=== PATIENT | male | born 1945 | race Caucasian/White ===

== ENCOUNTER 2017-11-05 14:52 | Inpatient (IN) | payer MEDICARE, SELFPAY ==
[2017-11-05 14:53] VITALS: BP 149/72; PULSE 77; RESP 20; TEMP 37.1; O2SAT 99; BMI 33.0
--- NOTE | 2017-11-05 15:13 | ED.RN ---
PT given urine cup for sample. PT tried but unable to provide sample.
[2017-11-05 15:52] VITALS: BP 140/74; PULSE 80; RESP 14; O2SAT 99
--- NOTE | 2017-11-05 15:58 | CT_ITS ---
STUDY: CT ABDOMEN AND PELVIS WITHOUT CONTRAST REASON FOR EXAM: Male, 72 years old. Right flank pain, HISTORY OF KIDNEY STONES RADIATION DOSAGE (If Supplied By Facility): CTDIvol = ( 19.66 ) mGy, DLP = ( 933.21 ) mGycm TECHNIQUE: Transaxial images were obtained from the dome of the diaphragm to the symphysis pubis without oral contrast, and without intravenous contrast. Sagittal and coronal images were reconstructed. COMPARISON: None. FINDINGS: The visualized lung bases are unremarkable. The visualized portions of the heart are within normal limits. There is hepatomegaly with diffuse hepatic enlargement. There is a solitary gallstone. Normal spleen. Normal pancreas. There is a small, circumscribed, smooth, low attenuation left adrenal mass, consistent with an adrenal adenoma. Normal right adrenal gland. Left adrenal mass measures 28 mm. Moderate hydronephrosis caused by 13 mm proximal right ureteral stone. Multiple hypodensities of the left kidney. The largest measures 23 mm. Normal visualized stomach. Normal small intestine. There are multiple colonic diverticula consistent with diverticulosis. The appendix is visualized and appears normal. There are calcifications of the abdominal aorta and vascular structures. This is consistent for atherosclerotic disease. There is no abdominal aortic aneurysm. Normal inferior vena cava. Subcentimeter mesenteric lymph nodes. Normal urinary bladder. Normal visualized prostate gland. Degenerative findings of the hips. Normal abdominal wall. There are degenerative changes of the osseous structures. There are multiple sclerotic densities in the osseous structures. These may represent multiple bone islands. However, other etiologies such as metastatic disease cannot be excluded. CT/Abdomen/Pelvis without Cont IMPRESSION: Left adrenal adenoma. Cholelithiasis. Moderate hydronephrosis caused by 13 mm proximal right ureteral stone. There are multiple diverticuli of the colon. There is diverticulosis but no radiographic signs for diverticulitis. Left renal simple cyst. hepatomegaly Other findings as above. Electronically Signed: Abhishek Jean-Baptiste MD at 17:27 EST , Service support ,
--- NOTE | 2017-11-05 16:00 | ED.VISSUMM ---
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 Patient states he has not had a kidney stone in almost 20 years. He states 2 days ago, he began to have a sharp stabbing pain in his right flank. He states it went away and he thought that he may have passed it. Today, the pain came back. He denies nausea or vomiting. He has not noticed hematuria. He denies any fevers or chills. He states that this feels very similar to stones he has had in the past. Patient does have history of diabetes, hypertension, hyperlipidemia. He has had no prior abdominal surgery. Physical Examination: Vital signs reviewed General: Well-nourished, well-developed Head: Normocephalic, atraumatic Eyes: Pupils equal and reactive, extraocular muscles intact Neck, supple, no lymphadenopathy Heart: Regular rate and rhythm Respiratory: No distress, clear bilaterally Abdomen: Soft, nontender, nondistended, no peritoneal signs Back: Right sided CVA tenderness Extremities: Nontender, no edema, no cords Skin: Normal color no rash Neuro: Alert and oriented, no focal or lateralizing deficits Test Results: Screening labs show mild leukocytosis. Patient also has acute kidney injury. CT shows a 13 mm proximal obstructing stone. Emergency Department Course and Treatment: The patient has signs and symptoms of renal colic. With his history of stones, IV was established. He did require a few doses of analgesics to achieve comfort. Screening labs show mild leukocytosis. The patient also has evidence of acute on chronic kidney injury with a creatinine 3.3. CT shows a large right sided proximal obstructing stone of 13 mm with hydronephrosis. Based on his acute kidney injury large stone, the patient was discussed with Dr. Christensen. He will be admitted for pain control and likely stent placement tomorrow. The patient is comfortable with this plan of care. Treatment Plan: [] Disposition: Admission Impression: 1. Right-sided obstructing kidney stone with hydronephrosis 2. Acute kidney injury This note was generated with [employer] software. It may contain incorrect words, spelling, and punctuation that were not noted in review of the chart prior to signing ED Disposition - Plan for ED Patient: Chief Complaint: Flank Pain Referrals: Allen Jones MD [Primary Care Provider] -
[2017-11-05 16:06] LABS: Bacteria 0 SEEN /hpf (None Seen); Mucous, Urine 0 SEEN /hpf (<or=2+); Squamous Epithelial Cells - UA 0 SEEN /hpf (0-5)
[2017-11-05 16:08] LABS: Color, Urine Yellow (Yellow); Glucose, Dipstick 1000 mg/dl (Normal); Ketone-Dipstick Negative (Negative); Leukocyte Esterase-Dipstick Negative /ul (Negative); Nitrite-Dipstick Negative (Negative); Occult Blood-Urine 250 /ul (Negative); Protein-Dipstick 30 mg/dl (Negative); Urine Bilirubin Dipstick Negative (Negative); Urine Clarity Clear (Clear); Urine Urobilinogen Normal (Normal)
[2017-11-05 16:21] LABS: Fine Granular Cast- Urine 0-5 SEEN /lpf (0-5)
[2017-11-05 16:22] LABS: Red Blood Cells-Urine 0-5 SEEN /hpf (0-5)
[2017-11-05 16:23] LABS: White Blood Cells 0-5 SEEN /hpf (0-5)
[2017-11-05] MEDS: 0.9% Normal Saline 1,000 ML 250 ML IV (16:46)
[2017-11-05] MEDS: Ondansetron 4 MG/2 ML Vial IV (16:46)
[2017-11-05 17:06] LABS: Absolute Lymphocyte Count 2.76 X10^3/ul (0.83-4.51); Absolute Neutrophil Count 12.5 X10^3/uL (2.0-7.7); Basophil# 0.03 X10^3/uL; Basophil% 0.2 % (0-1); Differential Indicated SCAN CRITERIA MET; Eosinophil# 0.18 X10^3/uL; Eosinophils% 1.1 % (0-5); Hematocrit 44.7 % (40-54); Lymphocyte # 2.76 X10^3/ul (4.0); Lymphocyte % 16.3 % (19-41); Mean Corp Hgb Conc 33.6 g/gl (32-36); Mean Corpuscular Hgb 31.5 pg (27.0-32.0); Mean Corpuscular Volume 93.9 fL (80-94); Monocyte# 1.47 X10^3/uL; Monocyte% 8.7 % (0-10); Neutrophil # 12.45 X10^3/uL (2.7-7.7); Neutrophil % 73.2 % (47-70); POSITIVE COUNT YES; POSITIVE DIFFERENTIAL NO; POSITIVE MORPHOLOGY NO; Platelet Count 213 K/mm3 (150-450); RBC Distribution Width CV 13.3 % (11.6-14.6); RBC Distribution Width SD 45.5 fl (35.1-43.9); Red Blood Count 4.76 M/mm3 (4.6-6.2)
[2017-11-05 17:08] LABS: Anion Gap 12 (5-15); BUN 52 mg/dL (7-18); BUN/Creat Ratio 15.6 RATIO (10-20); Chloride 106 mmol/L (98-107); Creatinine, Serum 3.33 mg/dL (0.70-1.30); EST Glomerular Filtration Rate 20 mL/min (>60); Est Glom Filt Rate - Afr Amer 24 mL/min (>60); Estimated Creatinine Clearance 21.01 ml/min; Glucose 191 mg/dL (70-110); Potassium 4.5 mmol/L (3.5-5.1); Sodium Level 135 mmol/L (136-145)
[2017-11-05 17:18] VITALS: BP 149/78; PULSE 75; RESP 14; O2SAT 99
[2017-11-05 17:24] LABS: Differential Comment SCANNED
[2017-11-05 17:44] VITALS: BP 140/70; PULSE 80; RESP 14; O2SAT 98
--- NOTE | 2017-11-05 17:46 | PCM.HP.STD ---
Problem List (1) Ureteral calculus Status: Acute Comment: 13mm stone mid right ureter (2) Acute renal failure Status: Acute Qualifiers: Acute renal failure type: with other specified pathological lesion Qualified Code(s): N17.8 - Other acute kidney failure Comment: 2nd dehydration and stone. History of Present Illness Date of Admission: 11/05/17 Chief Complaint: Right kidney stone. The patient is a 72 year old male presented with large 13mm stone in mid right ureter. with acute renal failure, will admit hydrate place stent. Past Medical History Allergies No Known Allergies Allergy (Verified 11/05/17 15:50) Home Medications: Ambulatory Orders Medication Instructions Recorded Allopurinol [Zyloprim] 300 mg PO DAILY 07/17/14 Amlodipine [Norvasc] 10 mg PO DAILY 07/17/14 Aspirin [Aspirin, Baby] 81 mg PO DAILY@0800 07/17/14 Carvedilol [Coreg (Beta Suzette)] 25 mg PO BID 07/17/14 Hydrochlorothiazide 12.5 mg PO DAILY 07/17/14 Metformin HCl [Glucophage Xr] 750 mg PO DAILY 07/17/14 [place]-3 Acid Ethyl Esters [Lovaza] 2 gm PO BID 07/17/14 Saxagliptin Hydrochloride [Onglyza] 5 mg PO DAILY 07/17/14 lisinopril 40 mg tablet 40 mg PO BID #180 tab 10/28/17 Surgical History: no surgical history Psychiatric History: No pertinent psych hx Smoking Status: Former smoker Tobacco Use: Non-smoker Alcohol: None Drugs: None - *Family History Maternal History Items: No pertinent history Review of Systems Constitutional: Denies: Chills, Fever, Weight Change HEENT: Denies: Head Aches, Sinus Congestion, Sinus Drainage Cardiovascular: Denies: Chest Pain, Palpitations Respiratory: Denies: Cough, Shortness of breath at rest, Sputum production Gastrointestinal: Reports: Abdominal Pain Genitourinary: Denies: Dysuria Musculoskeletal: Denies: Joint Pain, Joint Tenderness Skin: Denies: Rash, Wounds Neurological: Denies: Numbness, Tingling, Focal weakness Psychiatric: Denies: Anxiety, Depression, Homicidal Ideations, Suicidal Ideations Hematologic/ Lymphatic: Denies: Easy Bruising, Easy Bleeding VTE Information - Inpt Only VTE Present on Admission: No VTE Mechan Device Prophylaxis: SCD's Patient Problems: Active and Suspected Problems Ureteral calculus (Acute) 13mm stone mid right ureter Acute renal failure (Acute) 2nd dehydration and stone. - Physical Exam General: Alert, Oriented x3, Cooperative HEENT: Atraumatic, PERRLA, EOMI, Normocephalic Neck: Supple, No JVD, Negative Carotid Bruits Lungs: Clear to auscultation, Normal air movement Cardiovascular: Regular rate, No murmurs Abdomen: Bowel Sounds Present, Soft, Non Tender Extremities: No edema, Capillary Refill Less than 3 Seconds Skin: No rashes, No breakdown Musculoskeletal: No Tenderness to Palpation of Joints or Extremities Neurological: Cranial nerves II-XII grossly intact Psych/Mental Status: Normal Affect, Appropriate Vital Signs Temp Pulse Resp BP Pulse Ox 98.7 F 75 14 149/78 H 99 11/05/17 14:53 11/05/17 17:18 11/05/17 17:18 11/05/17 17:18 11/05/17 17:18 Oxygen Delivery Method Room Air Weight: 104.326 kg Body Mass Index (BMI) 33.0 Laboratory Tests Past 24 Hrs 11/05/17 11/05/17 11/05/17 15:30 16:49 16:49 WBC 17.0 H RBC 4.76 Hgb 15.0 Hct 44.7 MCV 93.9 MCH 31.5 MCHC 33.6 RDW 13.3 RDW Differential 45.5 H Plt Count 213 MPV 11.0 Immature Gran % (Auto) 0.500 Neut % (Auto) 73.2 H Lymph % (Auto) 16.3 L [place] % (Auto) 8.7 Eos % (Auto) 1.1 Baso % (Auto) 0.2 Absolute Neuts (auto) 12.5 H Absolute Lymphs (auto) 2.76 Total Counted Not Reportable Differential Comment SCANNED Sodium 135 L Potassium 4.5 Chloride 106 Carbon Dioxide 17.0 L Anion Gap 12 BUN 52 H Creatinine 3.33 H Estim Creat Clear Calc 21.01 Est GFR (MDRD) Af Amer 24 L Est GFR (MDRD) Non-Af 20 L BUN/Creatinine Ratio 15.6 Glucose 191 H Calcium 9.0 Urine Color Yellow Urine Clarity Clear Urine pH 5.0 Ur Specific [place] 1.010 Urine Protein 30 H Urine Glucose (UA) 1000 H Urine Ketones Negative Urine Occult Blood 250 H Urine Nitrite Negative Urine Bilirubin Negative Urine Urobilinogen Normal Ur Leukocyte Esterase Negative Urine RBC 0-5 SEEN Urine WBC 0-5 SEEN Ur Squamous Epith Cells 0 SEEN Urine Bacteria 0 SEEN Fine Granular Casts 0-5 SEEN Urine Mucus 0 SEEN Assessment/Plan Active and Suspected Problems Ureteral calculus (Acute) 13mm stone mid right ureter Acute renal failure (Acute) 2nd dehydration and stone. admit to hospital hydrate place stent in morning.
[2017-11-05 18:27] VITALS: BMI 33.5
[2017-11-05 18:57] VITALS: BP 149/68; PULSE 73; RESP 16; TEMP 36.8; O2SAT 96
[2017-11-05 20:20] VITALS: BP 155/93; PULSE 77; RESP 18; TEMP 36.7; O2SAT 97
[2017-11-05] MEDS: Cefazolin 1 GM/50 ML BAG IV (20:20)
[2017-11-05] MEDS: Lactated Ringers 1,000 ML 125 ML IV (20:20)
[2017-11-05 20:33] VITALS: BMI 33.5
[2017-11-05] MEDS: Carvedilol 25 MG Tablet PO (21:09)
[2017-11-05] MEDS: Lisinopril 40 MG Tablet PO (21:10)
[2017-11-05] MEDS: Omega-3 Acid Ethyl Esters 1 GM Capsule 2 GM PO (21:10)
--- NOTE | 2017-11-05 21:28 | NURSING ---
Spoke with Dr. 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 Explained that the pt was going to have a Cystoscopy with Right Stent Placement with Dr. Christensen on 11/06/17 around 0800. Voiced my concerns about how I would get this CIED form faxed to him prior to pt's surgery. Dr. Maddox indicated that probably would not happen due to time frame and weekend and further more his nurses are the ones who have all the pacer information and they of course will not be in on Wednesday. He advised me that this pt faithfully keeps his appointments and has had no issues so he did not anticipate any problems with the pacer/defib. I asked him if an EKG would be advisable and he felt that would be a good idea and gave me an order for the same.
--- NOTE | 2017-11-05 21:47 | NURSING ---
Dr. Maddox stopped by on MS3 and provided me with the pt's most recent pacemaker check information. He stated that the EKG should reflect that the pt is paced, if not that might be a cause for concern. We decided to have the EKG done now rather than in the morning so I could send him a picture of it via [employer]. CPS advised to do EKG now.
[2017-11-05 22:56] LABS: Bedside Glucose 152 mg/dL (70-110)
[2017-11-06] VITALS (8 sets, daily range): BP systolic 101–137; BP diastolic 58–87; PULSE 67–78; RESP 16–18; TEMP 36.6–37.6; O2SAT 93–97; BMI 33.5
--- NOTE | 2017-11-06 05:00 | EKG12_ITS ---
Test Reason : PRE OP Blood Pressure : / mmHG Vent. Rate : 070 BPM Atrial Rate : 070 BPM P-R Int : 192 ms QRS Dur : 112 ms QT Int : 406 ms P-R-T Axes : 010 -58 031 degrees QTc Int : 438 ms Sinus rhythm with AV syncnvnous pacemaker Confirmed by WILLARD NIX, CARLOS ([id number]), video effects editor RIMA LOUIS ([id number]) on 11/18/2017 1:01:04 PM Referred By: Confirmed By:CARLOS LAMAR MD
[2017-11-06] MEDS: Cefazolin 1 GM/50 ML BAG IV (05:08)
[2017-11-06] MEDS: Carvedilol 25 MG Tablet PO (06:44)
[2017-11-06 07:04] LABS: Absolute Lymphocyte Count 2.87 X10^3/ul (0.83-4.51); Absolute Neutrophil Count 11.9 X10^3/uL (2.0-7.7); Basophil# 0.04 X10^3/uL; Basophil% 0.2 % (0-1); Differential Indicated SCAN CRITERIA MET; Eosinophils% 1.2 % (0-5); Hematocrit 45.4 % (40-54); Hemoglobin 14.8 g/dl (13.0-16.5); Lymphocyte # 2.87 X10^3/ul (4.0); Lymphocyte % 17.1 % (19-41); Mean Corp Hgb Conc 32.6 g/gl (32-36); Mean Corpuscular Hgb 30.9 pg (27.0-32.0); Mean Corpuscular Volume 94.8 fL (80-94); Mean Platelet Vol. 10.4 fl (6.2-12.0); Monocyte% 10.1 % (0-10); Neutrophil # 11.91 X10^3/uL (2.7-7.7); Neutrophil % 70.9 % (47-70); POSITIVE COUNT NO; POSITIVE DIFFERENTIAL YES; POSITIVE MORPHOLOGY NO; Platelet Count 235 K/mm3 (150-450); RBC Distribution Width CV 13.2 % (11.6-14.6); RBC Distribution Width SD 45.6 fl (35.1-43.9); Red Blood Count 4.79 M/mm3 (4.6-6.2); White Blood Count 16.8 K/mm3 (4.4-11.0)
--- NOTE | 2017-11-06 07:14 | PCM.DC.URO ---
Discharge Diet: Light diet - advance as tolerated Discharge Activity: Return to Normal Activity, May not drive while taking narcotic pain medications. Call your doctor if you observe: Fever of 101 or Higher Instructions: Ureteral Stents Allergies/Adverse Reactions: Allergies No Known Allergies Allergy (Verified 11/05/17 15:50) Medications to take at Discharge Allopurinol [Zyloprim] 300 mg PO DAILY 07/17/14 Amlodipine [Norvasc] 10 mg PO DAILY 07/17/14 Aspirin [Aspirin, Baby] 81 mg PO DAILY@0800 07/17/14 Carvedilol [Coreg (Beta [place])] 25 mg PO BID 07/17/14 Hydrochlorothiazide 12.5 mg PO DAILY 07/17/14 Metformin HCl [Glucophage Xr] 750 mg PO DAILY 07/17/14 [place]-3 Acid Ethyl Esters [Lovaza] 2 gm PO BID 07/17/14 Saxagliptin Hydrochloride [Onglyza] 5 mg PO DAILY 07/17/14 lisinopril 40 mg tablet 40 mg PO BID #180 tab 10/28/17 Ciprofloxacin [Cipro] 500 mg PO BID #10 tab 11/06/17 Hydrocodone/Acetaminophen [[place] 5-325 Tablet] 1 ea PO Q4H PRN PRN #14 tab 11/06/17 The following prescriptions were given: Hydrocodone/Acetaminophen [[place] 5-325 Tablet] 1 ea PO Q4H PRN PRN #14 tab PRN Reason: Pain Ciprofloxacin [Cipro] 500 mg PO BID #10 tab Primary Care Physician: Allen Jones MD [Primary Care Provider] - Please Follow Up With: Vince Christensen MD When: call office to get set up for surgery to laser stone.
--- NOTE | 2017-11-06 07:17 | DCINST_ITS ---
Discharge Diet: Light diet - advance as tolerated Discharge Activity: Return to Normal Activity, May not drive while taking narcotic pain medications. Call your doctor if you observe: Fever of 101 or Higher Instructions: Ureteral Stents Allergies/Adverse Reactions: Allergies No Known Allergies Allergy (Verified 11/05/17 15:50) Medications to take at Discharge Allopurinol [Zyloprim] 300 mg PO DAILY 07/17/14 Amlodipine [Norvasc] 10 mg PO DAILY 07/17/14 Aspirin [Aspirin, Baby] 81 mg PO DAILY@0800 07/17/14 Carvedilol [Coreg (Beta [place])] 25 mg PO BID 07/17/14 Hydrochlorothiazide 12.5 mg PO DAILY 07/17/14 Metformin HCl [Glucophage Xr] 750 mg PO DAILY 07/17/14 [place]-3 Acid Ethyl Esters [Lovaza] 2 gm PO BID 07/17/14 Saxagliptin Hydrochloride [Onglyza] 5 mg PO DAILY 07/17/14 lisinopril 40 mg tablet 40 mg PO BID #180 tab 10/28/17 Ciprofloxacin [Cipro] 500 mg PO BID #10 tab 11/06/17 Hydrocodone/Acetaminophen [[place] 5-325 Tablet] 1 ea PO Q4H PRN PRN #14 tab 11/06 The following prescriptions were given: Hydrocodone/Acetaminophen [[place] 5-325 Tablet] 1 ea PO Q4H PRN PRN #14 tab PRN Reason: Pain Ciprofloxacin [Cipro] 500 mg PO BID #10 tab Primary Care Physician: Allen Jones MD [Primary Care Provider] - Please Follow Up With: Vince Christensen MD When: call office to get set up for surgery to laser stone.
[2017-11-06 07:26] LABS: Bedside Glucose 208 mg/dL (70-110)
[2017-11-06] MEDS: Lidocaine Jelly 2% 20 ML Syringe (URO-JET) 20 APPLIC (07:26)
[2017-11-06 07:34] LABS: Anion Gap 14 (5-15); BUN 46 mg/dL (7-18); BUN/Creat Ratio 14.2 RATIO (10-20); Calcium,Total 9.1 mg/dL (8.5-10.1); Chloride 103 mmol/L (98-107); Creatinine, Serum 3.24 mg/dL (0.70-1.30); EST Glomerular Filtration Rate 20 mL/min (>60); Est Glom Filt Rate - Afr Amer 24 mL/min (>60); Estimated Creatinine Clearance 21.59 ml/min; Glucose 198 mg/dL (70-110); Potassium 4.2 mmol/L (3.5-5.1); Sodium Level 136 mmol/L (136-145)
--- NOTE | 2017-11-06 07:34 | PCM.DC.SUM ---
Discharge Date and Diagnosis - Problem List Patient Problems: Active and Suspected Problems Ureteral calculus (Acute) 13mm stone mid right ureter Acute renal failure (Acute) 2nd dehydration and stone. Date of Admission: 11/05/17 Date of Discharge: 11/06/17 - Primary Discharge Diagnosis Active and Suspected Problems Ureteral calculus (Acute) 13mm stone mid right ureter Acute renal failure (Acute) 2nd dehydration and stone. Hospital Course and Treatment Imaging Results: 11/06/17 07:15 O.R. Fluoro for C-Arm [RAD] Urgent Operations: - - cystoscopy and right stent placement. Procedures: None Summary of Care Provided: The patient is a 72 year old male admitted for acute renal insufficiency, elevated creatinine and obstructing stone in the right mid ureter and right hydronephrosis high-grade high-grade obstruction. He was taken today to the operating room for cystoscopy and stent placement and later today hopefully home with antibiotics in my office will give him a call to set him up for surgery to laser the stone. Discharge Diet: Light diet - advance as tolerated Discharge Activity: Return to Normal Activity, May not drive while taking narcotic pain medications. Call your doctor if you observe: Fever of 101 or Higher Home Medications: Medications to take at Discharge Allopurinol [Zyloprim] 300 mg PO DAILY 07/17/14 Amlodipine [Norvasc] 10 mg PO DAILY 07/17/14 Aspirin [Aspirin, Baby] 81 mg PO DAILY@0800 07/17/14 Carvedilol [Coreg (Beta Suzette)] 25 mg PO BID 07/17/14 Hydrochlorothiazide 12.5 mg PO DAILY 07/17/14 Metformin HCl [Glucophage Xr] 750 mg PO DAILY 07/17/14 [place]-3 Acid Ethyl Esters [Lovaza] 2 gm PO BID 07/17/14 Saxagliptin Hydrochloride [Onglyza] 5 mg PO DAILY 07/17/14 lisinopril 40 mg tablet 40 mg PO BID #180 tab 10/28/17 Ciprofloxacin [Cipro] 500 mg PO BID #10 tab 11/06/17 Hydrocodone/Acetaminophen [[place] 5-325 Tablet] 1 ea PO Q4H PRN PRN #14 tab 11/06/17 Following Prescrptions Were Given to Patient: Hydrocodone/Acetaminophen [[place] 5-325 Tablet] 1 ea PO Q4H PRN PRN #14 tab PRN Reason: Pain Ciprofloxacin [Cipro] 500 mg PO BID #10 tab Primary Care Physician: Allen Jones MD [Primary Care Provider] - Please Follow Up With: Vince Christensen MD When: call office to get set up for surgery to laser stone. Patient Instructions: Ureteral Stents Meaningful Use Info Meaningful Use Diagnoses (Choose all that apply): None applicable
[2017-11-06] MEDS: Lisinopril 40 MG Tablet PO (10:55)
[2017-11-06] MEDS: Omega-3 Acid Ethyl Esters 1 GM Capsule 2 GM PO (10:55)
[2017-11-06] MEDS: amLODIPine 10 MG Tablet PO (10:55)
[2017-11-06] MEDS: HYDROCHLOROTHIAZIDE 12.5 MG CAPSULE PO (10:55)
[2017-11-06] MEDS: LINAGLIPTIN 5 MG TABLET PO (10:55)
[2017-11-06] MEDS: Allopurinol 300 MG Tablet PO (10:55)
--- NOTE | 2017-11-06 12:13 | CASEMGMT ---
Face to Face with patient for initial transition planning/care coordination assessment. RN CM introduced self and role at [facility], pt voices understanding and consents to assessment at this time. Care providers, pharmacy, and demographics verified. See attached link. Advised pt to ask for CM if questions/concerns/needs arise, voices understanding. PLAN: Home with spouse.
--- NOTE | 2017-11-08 09:38 | PCM.OPRPT ---
Problem List (1) Ureteral calculus Status: Acute Comment: 13mm stone mid right ureter (2) Acute renal failure Status: Acute Qualifiers: Acute renal failure type: with other specified pathological lesion Qualified Code(s): N17.8 - Other acute kidney failure Comment: 2nd dehydration and stone. Report of Operation Date of Procedure: 11/06/17 Pre-Operative Diagnosis: ureteral calculi Post-Operative Diagnosis: same Surgery/Procedure Performed:: cystoscopy, right stent placement Description of Surgical Findings:: taken to OR under mac local cysto performed, normal bladdder cannulated right ureteral orfice wire advanced, contrast injected in to kidney then stent placed. take to pacu in good condition. Type of Anesthesia:: Local MAC - Admit VTE Documentation VTE Present on Admission: No VTE Mechan Device Prophylaxis: SCD's
[2017-11-08 10:52] LABS: Pathologist Review Reviewed
== END 2017-11-06 12:15 | disposition home or self-care (01) | DRG 694 ==
LOC: ED 18:01 → MS3 11-08 11:54
PROVIDERS: Anesthesiology; Admitting Provider Urology; Emergency Provider Emergency Medicine; Family Provider Family Medicine; PCP Family Medicine; Visit Provider Urology
PROC: 0T768DZ Dilation of Right Ureter with Intraluminal Device, Via Natural or Artificial Opening Endoscopic (ICD-10-PCS; principal; 2017-11-06 07:15)
DX: N13.2 Hydronephrosis with renal and ureteral calculous obstruction (principal); N17.9 Acute kidney failure, unspecified; Z87.442 Personal history of urinary calculi; E86.0 Dehydration; I10 Essential (primary) hypertension; E11.9 Type 2 diabetes mellitus without complications; Z79.84 Long term (current) use of oral hypoglycemic drugs; E78.5 Hyperlipidemia, unspecified; Z79.899 Other long term (current) drug therapy; Z87.891 Personal history of nicotine dependence
CPT/HCPCS: 36415; 74176; 76000; 80048; 81001; 82962; 83036; 85025; 93005; 99285; J7030; J7050; J7120; A4216; C1769; C2617; J2405

== ENCOUNTER → 2017-12-13 09:07 | Outpatient (CLI) | payer MEDICARE, SELFPAY ==
[2017-12-13 10:30] LABS: Anion Gap 7 (5-15); BUN 20 mg/dL (7-18); BUN/Creat Ratio 15.3 RATIO (10-20); Calcium,Total 9.2 mg/dL (8.5-10.1); Chloride 104 mmol/L (98-107); Creatinine, Serum 1.31 mg/dL (0.70-1.30); EST Glomerular Filtration Rate 57 mL/min (>60); Est Glom Filt Rate - Afr Amer 69 mL/min (>60); Glucose 183 mg/dL (74-106); Potassium 4.2 mmol/L (3.5-5.1); Sodium Level 139 mmol/L (136-145)
== END ==
PROVIDERS: Family Provider Family Medicine; PCP Family Medicine; Visit Provider Family Medicine
DX: R60.0 Localized edema (principal)
CPT/HCPCS: 36415; 80048

== ENCOUNTER → 2018-01-25 08:54 | Outpatient (CLI) | payer MEDICARE, SELFPAY ==
[2018-01-25 10:50] LABS: AST(SGOT) 20 U/L (15-37); Alanine Aminotransfer ALT/SGPT 38 U/L (16-61); Albumin, Serum 3.4 g/dL (3.2-5.0); Alkaline Phosphatase 82 U/L (45-117); Bilirubin, Direct 0.09 mg/dL (0.00-0.30); Cholesterol 156 mg/dL (200); High Density Lipoprotein 34 mg/dL; Protein, Total 7.4 g/dL (6.4-8.2); Triglycerides 253 mg/dL; Very Low Density Lipoprotein 51 mg/dL (5-40)
== END ==
PROVIDERS: Family Provider Family Medicine; PCP Family Medicine; Visit Provider Physician Assistant Medical
DX: E78.5 Hyperlipidemia, unspecified (principal); Z79.899 Other long term (current) drug therapy
CPT/HCPCS: 36415; 80061; 80076

== ENCOUNTER → 2018-01-31 10:15 | Outpatient (CLI) | payer MEDICARE, SELFPAY ==
--- NOTE | 2018-01-31 10:16 | RAD_ITS ---
STUDY: X-RAY - ABDOMEN/PELVIS REASON FOR EXAM: Male, 72 years old. History of kidney stone. TECHNIQUE: Two AP supine views of the abdomen and pelvis. COMPARISON: Comparison is made with prior CT scan of the abdomen dated November 05, 2017. FINDINGS: Normal visualized lung bases. There is an unremarkable bowel gas pattern. Calcified gallstone. Tiny calcification overlying the lower pole calyx of the right kidney. Normal soft tissue structures. There are diffuse degenerative changes of the visualized lumbar spine. Sclerotic lesions seen in the proximal right femur. RAD/Abdomen Single View IMPRESSION: Calcified gallstone. Tiny calculus seen overlying the lower pole calyx of the right kidney. Electronically Signed: Irvin Campuzano MD at 15:38 EDT Tel [phone], Service support ,
[2018-01-31 12:17] LABS: Anion Gap 8 (5-15); BUN 28 mg/dL (7-18); BUN/Creat Ratio 18.1 RATIO (10-20); Calcium,Total 8.9 mg/dL (8.5-10.1); Chloride 108 mmol/L (98-107); Creatinine, Serum 1.55 mg/dL (0.70-1.30); EST Glomerular Filtration Rate 47 mL/min (>60); Est Glom Filt Rate - Afr Amer 57 mL/min (>60); Glucose 259 mg/dL (74-106); Sodium Level 140 mmol/L (136-145)
== END ==
PROVIDERS: Family Provider Family Medicine; PCP Family Medicine; Visit Provider Urology
DX: N20.0 Calculus of kidney (principal)
CPT/HCPCS: 36415; 74018; 80048

== ENCOUNTER → 2018-02-04 14:13 | Outpatient (CLI) | payer MEDICARE, SELFPAY ==
--- NOTE | 2018-02-04 14:15 | CT_ITS ---
STUDY: CT ABDOMEN AND PELVIS WITHOUT CONTRAST REASON FOR EXAM: Male, 72 years old. History of kidney stones with lithotripsy. Prostatectomy for cancer. RADIATION DOSAGE (If Supplied By Facility): CTDIvol = ( 14.77 ) mGy, DLP = ( 680.40 ) mGycm TECHNIQUE: Transaxial images were obtained from the dome of the diaphragm to the symphysis pubis without oral contrast, and without intravenous contrast. Sagittal and coronal images were reconstructed. Individualized dose optimization techniques were used for this CT. COMPARISON: None. FINDINGS: The visualized lung bases are unremarkable. The visualized portions of the heart are within normal limits. Pacer leads are seen in the right heart along the posterior aspect of the left ventricle. Normal liver. There is a laminated gallstone in an incompletely distended gallbladder. No wall thickening or inflammatory change. There is no biliary ductal dilatation. Normal spleen. Normal pancreas. Normal right adrenal gland.The left adrenal gland is markedly enlarged uterus with 2.5 x 2.2 x 3.1 cm low-attenuation mass. The right kidney is of normal size and cortical thickness. A 4 mm nonobstructing calculus lower pole calyx. No hydronephrosis. Normal right ureter. The left kidney is of normal size and cortical thickness. There is an exophytic 2.4 cm cyst off the mid kidney. No renal calculi or hydronephrosis. Normal left ureter. Normal visualized stomach. Normal small intestine. There is descending and sigmoid diverticulosis without acute inflammatory change. Proximal colon is unremarkable. The appendix is visualized and appears normal. There is diffuse atherosclerotic calcification of the abdominal aorta, without a demonstrated aneurysm. Normal inferior vena cava. Normal retroperitoneum. Normal urinary bladder. Despite history of prostatectomy, prostate appears present. Normal seminal vesicles. There is no pelvic lymphadenopathy or mass. No free air or free fluid is seen within the peritoneal cavity. Umbilical hernia of omental fat. There appears to be subcutaneous injection sites in the periumbilical fat. There are degenerative changes of the lumbar spine with levoscoliosis. There is a focal sclerotic lesion in the posterior left acetabulum as well is tiny sclerotic lesions seen in both femoral heads. CT/Abdomen/Pelvis without Cont IMPRESSION: 1. Nonobstructing right renal calculus. 2. Left renal cysts. 3. Visualization of the prostate despite history of prostatectomy. 4. Cardiac pacemaker. 5. Large left adrenal mass. Question adenoma. 6. Minimal sclerotic foci within the pelvis and femurs. Question metastatic disease. 7. Gallstone without acute cholecystitis. Electronically Signed: Ward Burt DO at 17:13 EDT Tel [phone], Service support ,
== END ==
PROVIDERS: Family Provider Family Medicine; PCP Family Medicine; Visit Provider Urology
DX: Z87.442 Personal history of urinary calculi (principal)
CPT/HCPCS: 74176

== ENCOUNTER → 2018-02-09 08:41 | Outpatient (CLI) | payer MEDICARE, SELFPAY | PROVIDERS: Family Provider Family Medicine; PCP Family Medicine; Visit Provider Urology | DX: Z12.5 Encounter for screening for malignant neoplasm of prostate (principal) | CPT/HCPCS: 36415; 84153; G0103 ==

== ENCOUNTER → 2018-06-16 08:02 | Outpatient (CLI) | payer MEDICARE, SELFPAY ==
[2018-06-16 10:47] LABS: ALB/GLOB Ratio 0.8 RATIO (0.9-2.4); AST(SGOT) 14 U/L (15-37); Alanine Aminotransfer ALT/SGPT 31 U/L (16-61); Albumin, Serum 3.2 g/dL (3.2-5.0); Alkaline Phosphatase 66 U/L (45-117); Anion Gap 9 (5-15); BUN 26 mg/dL (7-18); BUN/Creat Ratio 16.5 RATIO (10-20); Calcium,Total 8.8 mg/dL (8.5-10.1); Chloride 109 mmol/L (98-107); Creatinine, Serum 1.58 mg/dL (0.70-1.30); EST Glomerular Filtration Rate 46 mL/min (>60); Est Glom Filt Rate - Afr Amer 56 mL/min (>60); Globulin 3.8 g/dL (2.2-4.2); Glucose 153 mg/dL (74-106); Potassium 4.9 mmol/L (3.5-5.1); Sodium Level 139 mmol/L (136-145); Thyroid Stim Hormone (TSH) 3.31 uIU/mL (0.358-3.74)
== END ==
PROVIDERS: Family Provider Family Medicine; PCP Family Medicine; Visit Provider Family Medicine
DX: E11.9 Type 2 diabetes mellitus without complications (principal)
CPT/HCPCS: 36415; 80053; 84403; 84443

== ENCOUNTER → 2018-08-29 13:23 | Outpatient (CLI) | payer MEDICARE, SELFPAY ==
--- NOTE | 2018-08-29 13:26 | CT_ITS ---
STUDY: CT ABDOMEN AND PELVIS WITHOUT CONTRAST REASON FOR EXAM: Male, 72 years old. Kidney stone follow-up history of prostate cancer RADIATION DOSAGE (If Supplied By Facility): CTDIvol = ( 17.26 ) mGy, DLP = ( 790.79 ) mGycm TECHNIQUE: Transaxial images were obtained from the dome of the diaphragm to the symphysis pubis without oral contrast, and without intravenous contrast. Sagittal and coronal images were reconstructed. Individualized dose optimization techniques were used for this CT. COMPARISON: February 04, 2018 CT scan abdomen and pelvis FINDINGS: The visualized lung bases are unremarkable. There is partial visualization of pacer defibrillator leads. The liver is fatty infiltrated. The left hepatic lobe appears mildly elongated. There is a gallstone in the gallbladder measuring 1.0 cm. Normal spleen. Normal pancreas. There is a thickened appearance of the left adrenal gland measuring up to 1.5 x 2.4 cm. This is similar to the prior study. There is a punctate stone or stones within the inferior pole of the right kidney which are new since prior study. There is no evidence of hydronephrosis. The hydronephrosis seen on the prior study has resolved. There is mild left renal atrophy. There is a cyst in the left kidney measuring 2.1 x 1.4 cm and 2.1 x 2.9 cm. There is intraparenchymal cystic structure measuring 9 mm. These are stable when compared to prior study. Normal visualized stomach. Normal small intestine. There is moderate stool in the colon. There are diverticula present without visualized diverticulitis. The appendix is visualized and appears normal. There is diffuse atherosclerotic calcification of the abdominal aorta, without a demonstrated aneurysm. Normal inferior vena cava. Normal retroperitoneum. Normal urinary bladder. The prostate measures 2.4 x 4.6 cm. There is a small umbilical hernia containing fat. There is degenerative change of the thoracolumbar spine similar to the prior study. This is especially seen at L1-L2 L2-3 L3-L4 where there is disc space narrowing spondylosis anteriorly and posteriorly with bilateral neural foramina narrowing and mild central stenosis. There is facet arthropathy. There are focal sclerotic densities within the left femoral head left initial tuberosity right-sided acetabulum and in the right side of the femur. There is a mildly inhomogeneous appearance of the bones within the pelvis. CT/Abdomen/Pelvis without Cont IMPRESSION: No evidence of obstructing renal or ureteral calculi. There is a small tiny focus of stones and there are stones measuring up to 3 mm in the right kidney. A stable cyst left kidney mild atrophy. Cholelithiasis Hepatic enlargement. Constipation and diverticulosis no evidence of diverticulitis Borderline enlarged prostate Small scattered tiny focal sclerotic densities in the pelvis as detailed above stable since prior study these may represent benign bone islands or sclerotic degenerative change however recommend follow-up bone scan for further evaluation given the clinical history given of prostate cancer. There is degenerative change of the thoracolumbar spine. Electronically Signed: Tita Carrasco MD at 19:57 EST Tel , Service support ,
== END ==
PROVIDERS: Family Provider Family Medicine; PCP Family Medicine; Referring Provider Urology; Visit Provider Urology
DX: N20.0 Calculus of kidney (principal)
CPT/HCPCS: 74176

== ENCOUNTER → 2018-09-20 09:22 | Outpatient (CLI) | payer MEDICARE, SELFPAY ==
[2018-09-05 13:59] VITALS: BMI 34.0
[2018-09-20 11:08] LABS: Anion Gap 9 (5-15); BUN 40 mg/dL (7-18); BUN/Creat Ratio 25.5 RATIO (10-20); Calcium,Total 9.1 mg/dL (8.5-10.1); Chloride 111 mmol/L (98-107); Creatinine, Serum 1.57 mg/dL (0.70-1.30); EST Glomerular Filtration Rate 46 mL/min (>60); Est Glom Filt Rate - Afr Amer 56 mL/min (>60); Glucose 226 mg/dL (74-106); Potassium 5.1 mmol/L (3.5-5.1); Sodium Level 142 mmol/L (136-145)
== END ==
PROVIDERS: Family Provider Family Medicine; PCP Family Medicine; Visit Provider Family Medicine
DX: N18.9 Chronic kidney disease, unspecified (principal)
CPT/HCPCS: 36415; 80048

== ENCOUNTER → 2018-12-29 09:40 | Outpatient (CLI) | payer MEDICARE, SELFPAY ==
[2018-09-05 13:59] VITALS: BMI 34.0
[2018-12-29 13:00] LABS: Anion Gap 9 (5-15); BUN 36 mg/dL (7-18); BUN/Creat Ratio 19.3 RATIO (10-20); Chloride 113 mmol/L (98-107); Creatinine, Serum 1.87 mg/dL (0.70-1.30); EST Glomerular Filtration Rate 38 mL/min (>60); Est Glom Filt Rate - Afr Amer 46 mL/min (>60); Glucose 218 mg/dL (74-106); Potassium 5.4 mmol/L (3.5-5.1); Sodium Level 141 mmol/L (136-145)
== END ==
PROVIDERS: Family Provider Family Medicine; PCP Family Medicine; Referring Provider Family Medicine; Visit Provider Family Medicine
DX: N18.9 Chronic kidney disease, unspecified (principal)
CPT/HCPCS: 36415; 80048

== ENCOUNTER → 2019-01-09 08:56 | Outpatient (CLI) | payer MEDICARE, SELFPAY ==
[2018-09-05 13:59] VITALS: BMI 34.0
[2019-01-09 11:09] LABS: Anion Gap 6 (5-15); BUN 21 mg/dL (7-18); BUN/Creat Ratio 13.8 RATIO (10-20); Chloride 109 mmol/L (98-107); Creatinine, Serum 1.52 mg/dL (0.70-1.30); EST Glomerular Filtration Rate 48 mL/min (>60); Est Glom Filt Rate - Afr Amer 58 mL/min (>60); Glucose 221 mg/dL (74-106); Sodium Level 138 mmol/L (136-145)
== END ==
PROVIDERS: Family Provider Family Medicine; PCP Family Medicine; Referring Provider Family Medicine; Visit Provider Family Medicine
DX: N18.9 Chronic kidney disease, unspecified (principal)
CPT/HCPCS: 36415; 80048

== ENCOUNTER → 2019-02-20 | Outpatient (CLI) | payer MEDICARE, SELFPAY ==
[2018-09-05 13:59] VITALS: BMI 34.0
[2019-02-20 11:23] LABS: Anion Gap 9 (5-15); BUN 20 mg/dL (7-18); BUN/Creat Ratio 13.3 RATIO (10-20); Calcium,Total 9.1 mg/dL (8.5-10.1); Chloride 107 mmol/L (98-107); EST Glomerular Filtration Rate 49 mL/min (>60); Est Glom Filt Rate - Afr Amer 59 mL/min (>60); Glucose 195 mg/dL (74-106); Sodium Level 140 mmol/L (136-145)
== END | disposition home or self-care (01) ==
LOC: MFPLAB 08:05
PROVIDERS: Family Provider Family Medicine; PCP Family Medicine; Referring Provider Family Medicine; Visit Provider Family Medicine
DX: E11.9 Type 2 diabetes mellitus without complications (principal)
CPT/HCPCS: 36415; 80048

== ENCOUNTER → 2019-07-10 | Outpatient (CLI) | payer MEDICARE, SELFPAY ==
[2019-06-22 09:21] VITALS: BMI 34.0
[2019-07-10 10:31] LABS: AST(SGOT) 15 U/L (15-37); Alanine Aminotransfer ALT/SGPT 35 U/L (16-61); Albumin, Serum 3.3 g/dL (3.2-5.0); Alkaline Phosphatase 81 U/L (45-117); Anion Gap 8 (5-15); BUN 22 mg/dL (7-18); BUN/Creat Ratio 13.9 RATIO (10-20); Calcium,Total 8.7 mg/dL (8.5-10.1); Chloride 110 mmol/L (98-107); Cholesterol 132 mg/dL (200); Creatinine, Serum 1.58 mg/dL (0.70-1.30); EST Glomerular Filtration Rate 46 mL/min (>60); Est Glom Filt Rate - Afr Amer 56 mL/min (>60); Globulin 3.4 g/dL (2.2-4.2); Glucose 167 mg/dL (74-106); High Density Lipoprotein 30 mg/dL; Protein, Total 6.7 g/dL (6.4-8.2); Sodium Level 144 mmol/L (136-145); Thyroid Stim Hormone (TSH) 3.03 uIU/mL (0.358-3.74); Triglycerides 229 mg/dL; Very Low Density Lipoprotein 46 mg/dL (5-40)
== END | disposition home or self-care (01) ==
LOC: MFPLAB 08:54
PROVIDERS: Family Provider Family Medicine; PCP Family Medicine; Visit Provider Family Medicine
DX: E11.9 Type 2 diabetes mellitus without complications (principal)
CPT/HCPCS: 36415; 80053; 80061; 84443

== ENCOUNTER → 2020-01-17 | Outpatient (CLI) | payer MEDICARE, SELFPAY ==
[2019-10-06 10:32] VITALS: BMI 35.0
[2020-01-17 12:42] LABS: Anion Gap 9 (5-15); BUN 23 mg/dL (7-18); BUN/Creat Ratio 15.5 RATIO (10-20); Calcium,Total 9.4 mg/dL (8.5-10.1); Chloride 106 mmol/L (98-107); Creatinine, Serum 1.48 mg/dL (0.70-1.30); EST Glomerular Filtration Rate 50 mL/min (>60); Est Glom Filt Rate - Afr Amer 60 mL/min (>60); Glucose 240 mg/dL (74-106); Potassium 4.3 mmol/L (3.5-5.1); Sodium Level 140 mmol/L (136-145)
[2020-01-17 12:44] LABS: Hemoglobin A1c 9.2 % (4.2-6.3)
== END | disposition home or self-care (01) ==
LOC: MTLAB 09:45
PROVIDERS: PCP Family Medicine; Referring Provider Family Medicine; Visit Provider Family Medicine
DX: E11.9 Type 2 diabetes mellitus without complications (principal)
CPT/HCPCS: 36415; 80048; 83036

== ENCOUNTER → 2020-05-01 | Outpatient (CLI) | payer MEDICARE, SELFPAY ==
[2020-04-03 09:48] VITALS: BMI 35.3
[2020-05-01 13:38] LABS: Anion Gap 9 (5-15); BUN 26 mg/dL (7-18); Calcium,Total 9.1 mg/dL (8.5-10.1); Chloride 110 mmol/L (98-107); Creatinine, Serum 1.53 mg/dL (0.70-1.30); EST Glomerular Filtration Rate 48 mL/min (>60); Est Glom Filt Rate - Afr Amer 58 mL/min (>60); Glucose 205 mg/dL (74-106); Potassium 4.7 mmol/L (3.5-5.1); Sodium Level 139 mmol/L (136-145)
== END | disposition home or self-care (01) ==
LOC: MFPLAB 10:05
PROVIDERS: PCP Family Medicine; Visit Provider Family Medicine
DX: E11.9 Type 2 diabetes mellitus without complications (principal)
CPT/HCPCS: 36415; 80048

== ENCOUNTER → 2020-07-30 | Outpatient (CLI) | payer MEDICARE, SELFPAY ==
[2020-04-03 09:48] VITALS: BMI 35.3
[2020-07-30 13:11] LABS: Vitamin B12 333 pg/mL (211-911)
[2020-07-30 13:19] LABS: Anion Gap 5 (5-15); BUN 21 mg/dL (7-18); BUN/Creat Ratio 14.5 RATIO (10-20); Calcium,Total 9.1 mg/dL (8.5-10.1); Chloride 108 mmol/L (98-107); Cholesterol 137 mg/dL (200); Creatinine, Serum 1.45 mg/dL (0.70-1.30); EST Glomerular Filtration Rate 51 mL/min (>60); Est Glom Filt Rate - Afr Amer 61 mL/min (>60); Glucose 165 mg/dL (74-106); High Density Lipoprotein 35 mg/dL; Sodium Level 138 mmol/L (136-145); Thyroid Stim Hormone (TSH) 2.79 uIU/mL (0.358-3.74); Triglycerides 235 mg/dL; Very Low Density Lipoprotein 47 mg/dL (5-40)
== END | disposition home or self-care (01) ==
LOC: MFPLAB 10:10
PROVIDERS: PCP Family Medicine; Referring Provider Family Medicine; Visit Provider Family Medicine
DX: E11.9 Type 2 diabetes mellitus without complications (principal)
CPT/HCPCS: 36415; 80048; 80061; 82607; 84443

== ENCOUNTER 2020-12-16 16:59 | Outpatient (RCR) | payer MEDICARE, SELFPAY ==
[2020-11-29 08:53] VITALS: BMI 34.9
== END 2020-12-18 23:59 ==
LOC: IMMUN 16:59
PROVIDERS: PCP Family Medicine; Visit Provider Family Medicine
DX: Z23 Encounter for immunization (principal)
CPT/HCPCS: 0011A; 0012A

== ENCOUNTER → 2021-02-25 09:33 | Outpatient (CLI) | payer MEDICARE, SELFPAY ==
[2020-11-29 08:53] VITALS: BMI 34.9
[2021-02-25 12:29] LABS: Hematocrit 45.6 % (40-54); Hemoglobin 14.3 g/dL (13.0-16.5); Mean Corp Hgb Conc 31.4 g/dL (32-36); Mean Corpuscular Hgb 29.1 pg (27.0-32.0); Mean Corpuscular Volume 92.9 fL (80-94); Mean Platelet Vol. 10.8 fl (6.2-12.0); Platelet Count 255 K/mm3 (150-450); RBC Distribution Width CV 13.3 % (11.6-14.6); RBC Distribution Width SD 44.8 fl (35.1-43.9); Red Blood Count 4.91 M/mm3 (4.6-6.2); White Blood Count 10.8 K/mm3 (4.4-11.0)
[2021-02-25 12:49] LABS: AST(SGOT) 21 U/L (15-37); Alanine Aminotransfer ALT/SGPT 41 U/L (16-61); Albumin, Serum 3.6 g/dL (3.2-5.0); Alkaline Phosphatase 84 U/L (45-117); Anion Gap 8 (5-15); BUN 25 mg/dL (7-18); Calcium,Total 8.9 mg/dL (8.5-10.1); Chloride 105 mmol/L (98-107); Cholesterol 138 mg/dL (200); Creatinine, Serum 1.47 mg/dL (0.70-1.30); EST Glomerular Filtration Rate 50 mL/min (>60); Est Glom Filt Rate - Afr Amer 60 mL/min (>60); Globulin 3.6 g/dL (2.2-4.2); Glucose 139 mg/dL (74-106); High Density Lipoprotein 36 mg/dL; PSA,Total - Annual Screen 1.63 ng/mL (0.00-4.00); Potassium 4.8 mmol/L (3.5-5.1); Protein, Total 7.2 g/dL (6.4-8.2); Sodium Level 136 mmol/L (136-145); Triglycerides 172 mg/dL; Very Low Density Lipoprotein 34 mg/dL (5-40)
[2021-02-25 13:30] LABS: Hemoglobin A1c 7.9 % (3.8-5.6)
== END ==
PROVIDERS: PCP Family Medicine; Referring Provider Family Medicine; Visit Provider Family Medicine
DX: E11.22 Type 2 diabetes mellitus with diabetic chronic kidney disease (principal); N18.9 Chronic kidney disease, unspecified; F52.21 Male erectile disorder; Z12.5 Encounter for screening for malignant neoplasm of prostate
CPT/HCPCS: 36415; 80053; 80061; 83036; 84153; 84443; 85027; G0103

== ENCOUNTER → 2021-08-26 08:32 | Outpatient (CLI) | payer MEDICARE, SELFPAY ==
[2021-08-26 10:34] LABS: ALB/GLOB Ratio 0.9 RATIO (0.9-2.4); AST(SGOT) 29 U/L (15-37); Alanine Aminotransfer ALT/SGPT 59 U/L (16-61); Albumin, Serum 3.4 g/dL (3.2-5.0); Alkaline Phosphatase 72 U/L (45-117); Anion Gap 8 (5-15); BUN 22 mg/dL (7-18); BUN/Creat Ratio 14.8 RATIO (10-20); Chloride 107 mmol/L (98-107); Cholesterol 145 mg/dL (200); Creatinine, Serum 1.49 mg/dL (0.70-1.30); EST Glomerular Filtration Rate 49 mL/min (>60); Est Glom Filt Rate - Afr Amer 59 mL/min (>60); Globulin 3.7 g/dL (2.2-4.2); Glucose 143 mg/dL (74-106); High Density Lipoprotein 31 mg/dL; Potassium 4.4 mmol/L (3.5-5.1); Protein, Total 7.1 g/dL (6.4-8.2); Sodium Level 139 mmol/L (136-145); Triglycerides 232 mg/dL; Very Low Density Lipoprotein 46 mg/dL (5-40)
== END ==
PROVIDERS: PCP Family Medicine; Referring Provider Family Medicine; Visit Provider Family Medicine
DX: E11.65 Type 2 diabetes mellitus with hyperglycemia (principal)
CPT/HCPCS: 36415; 80053; 80061

== ENCOUNTER → 2022-03-18 | Outpatient (CLI) | payer MEDICARE, SELFPAY ==
[2022-03-18 10:47] LABS: Anion Gap 9 (5-15); BUN 22 mg/dL (7-18); BUN/Creat Ratio 14.5 RATIO (10-20); Calcium,Total 9.2 mg/dL (8.5-10.1); Chloride 106 mmol/L (98-107); Cholesterol 135 mg/dL (200); Creatinine, Serum 1.52 mg/dL (0.70-1.30); EST Glomerular Filtration Rate 48 mL/min (>60); Est Glom Filt Rate - Afr Amer 58 mL/min (>60); Glucose 170 mg/dL (74-106); High Density Lipoprotein 35 mg/dL; PSA,Total - Annual Screen 1.72 ng/mL (0.00-4.00); Potassium 4.5 mmol/L (3.5-5.1); Sodium Level 138 mmol/L (136-145); Thyroid Stim Hormone (TSH) 3.91 uIU/mL (0.358-3.74); Triglycerides 184 mg/dL; Very Low Density Lipoprotein 37 mg/dL (5-40)
[2022-03-18 11:09] LABS: Hemoglobin A1c 8.1 % (3.8-5.6)
[2022-03-19 14:55] LABS: T3 Total - Triiodothyronine 0.87 ng/mL (0.6-1.81)
== END | disposition home or self-care (01) ==
PROVIDERS: PCP Family Medicine; Visit Provider Family Medicine
DX: R79.89 Other specified abnormal findings of blood chemistry (principal); E11.40 Type 2 diabetes mellitus with diabetic neuropathy, unspecified; E11.65 Type 2 diabetes mellitus with hyperglycemia; Z12.5 Encounter for screening for malignant neoplasm of prostate
CPT/HCPCS: 36415; 80048; 80061; 83036; 84153; 84403; 84439; 84443; 84480; G0103

== ENCOUNTER → 2022-05-08 | Outpatient (CLI) | payer MEDICARE, SELFPAY ==
--- NOTE | 2022-05-08 12:49 | ECHOCS_ITS ---
Reason For Study: CM Procedure This was a 2D Doppler, Color Flow transthoracic echocardiogram. The study was technically difficult. Contrast injection was performed. Exam performed in department. Left Ventricle Based upon the 2D echocardiographic contrast enhanced images obtained there appears to be left ventricular dilatation, with grossly normal left ventricular wall motion, with borderline low LV systolic function. The estimated ejection fraction is 50 %. Diastolic function is indeterminate. Right Ventricle Normal RV size. ICD or pacer leads identified within the right ventricle. Normal systolic function. Atria The left atrium is mildly enlarged. Normal right atrium. ICD or pacer leads identified within the right atrium. No doppler evidence for ASD. Mitral Valve There is no mitral annular calcification. Mild focal mitral valve calcification of the posterior leaflet. Mild (1+) mitral valve insufficiency. Tricuspid Valve Normal tricuspid valve. Trivial tricuspid valve insufficiency. Right ventricular systolic pressure estimated to be 32 mmHg. Aortic Valve Trisinus/trileaflet aortic valve. Normal aortic valve. Mild (1+) aortic valve insufficiency. Pulmonic Valve The pulmonic valve is not well visualized. Great Vessels Normal sized aortic root. Pericardium/Pleural No pericardial effusion. Medication Diluted definity 5ml given slow IV push to enhance endocardial definition. MMode/2D Measurements & Calculations LVIDd: 6.5 cm IVSd: 1.4 cm Ao root diam: 3.1 cm LVIDs: 5.2 cm LVPWd: 1.2 cm RVDd: 3.7 cm FS: 19.8 % LAV(MOD-bp): 61.1 ml LVAd ap4: 34.9 cm2 SV(MOD-sp4): 66.5 ml LAV(MOD-bp) Indexed: 26.3 ml/m2 LVLd ap4: 7.7 cm LAV(MOD-sp2): 66.4 ml EDV(MOD-sp4): 131.3 ml LAV(MOD-sp4): 56.1 ml EDV(sp4-el): 134.8 ml LVAs ap4: 22.7 cm2 LVLs ap4: 6.6 cm ESV(MOD-sp4): 64.8 ml ESV(sp4-el): 66.4 ml EF(MOD-sp4): 50.6 % EF(sp4-el): 50.8 % SV(sp4-el): 68.5 ml LA A4 area: 19.3 cm2 LA dimension(2D): 4.2 cm RA A4 area: 15.7 cm2 Doppler Measurements & Calculations MV E max sandro: 78.4 cm/sec Lat Peak E' Sandro: 4.4 cm/sec Med Peak E' Sandro: 4.9 cm/sec MV A max sandro: 98.9 cm/sec E/E' lat: 17.7 E/E' med: 16.1 MV E/A: 0.79 Ao V2 max: 176.0 cm/sec AI max sandro: 440.3 cm/sec LV V1 max: 114.3 cm/sec Ao max P.4 mmHg AI max P.5 mmHg LV V1 max P.3 mmHg Ao V2 mean: 119.8 cm/sec Ao mean P.4 mmHg AI dec slope: 133.9 cm/sec2 Ao V2 VTI: 36.6 cm AI P1/2t: 962.7 msec PA V2 max: 106.1 cm/sec TR max sandro: 271.0 cm/sec TR max P.4 mmHg ECHO/Echo Complete W/ Contrast Interpretation Summary The study was technically difficult. Contrast injection was performed. Based upon the 2D echocardiographic contrast enhanced images obtained there tanja ears to be left ventricular dilatation, with grossly normal left ventricular wall motion, with borderline low LV systolic function. The estimated ejection fraction is 50 %. The left atrium is mildly enlarged. Mild focal mitral valve calcification of the posterior leaflet. Mild (1+) mitral valve insufficiency. Trivial tricuspid valve insufficiency. Mild (1+) aortic valve insufficiency. Right ventricular systolic pressure estimated to be 32 mmHg. Diastolic function is indeterminate. ICD or pacer leads identified within the right atrium ICD or pacer leads identified within the right ventricle. Ordering Physician: Thony Maddox Referring Physician: Ok Jones Performed By: Windy Castellon, AFSHIN, RVT
== END | disposition home or self-care (01) ==
LOC: CVS 12:49
PROVIDERS: PCP Family Medicine; Referring Provider Internal Medicine Cardiovascular Disease; Visit Provider Internal Medicine Cardiovascular Disease
DX: G47.33 Obstructive sleep apnea (adult) (pediatric) (principal)
CPT/HCPCS: 93306; Q9957; A4216; C8929

== ENCOUNTER → 2022-09-21 | Outpatient (CLI) | payer MEDICARE, SELFPAY ==
[2022-09-21 10:09] LABS: Hematocrit 43.5 % (40-54); Hemoglobin 14.1 g/dL (13.0-16.5); Mean Corp Hgb Conc 32.4 g/dL (32-36); Mean Corpuscular Hgb 30.7 pg (27.0-32.0); Mean Corpuscular Volume 94.8 fL (80-94); Mean Platelet Vol. 10.6 fl (6.2-12.0); Platelet Count 270 K/mm3 (150-450); RBC Distribution Width CV 13.7 % (11.6-14.6); RBC Distribution Width SD 47.5 fl (35.1-43.9); Red Blood Count 4.59 M/mm3 (4.6-6.2); White Blood Count 12.3 K/mm3 (4.4-11.0)
[2022-09-21 10:18] LABS: Vitamin D,25 Hydroxy 19.7 ng/mL
[2022-09-21 10:25] LABS: Anion Gap 7 (5-15); BUN 26 mg/dL (7-18); Calcium,Total 9.4 mg/dL (8.5-10.1); Chloride 110 mmol/L (98-107); Cholesterol 133 mg/dL (200); Creatinine, Serum 1.63 mg/dL (0.70-1.30); EST Glomerular Filtration Rate 44 mL/min (>60); Est Glom Filt Rate - Afr Amer 53 mL/min (>60); Glucose 68 mg/dL (74-106); High Density Lipoprotein 32 mg/dL; Potassium 4.6 mmol/L (3.5-5.1); Sodium Level 140 mmol/L (136-145); Triglycerides 169 mg/dL; Very Low Density Lipoprotein 34 mg/dL (5-40)
== END | disposition home or self-care (01) ==
LOC: MFPLAB 08:45
PROVIDERS: PCP Family Medicine; Visit Provider Family Medicine
DX: N18.30 Chronic kidney disease, stage 3 unspecified (principal); E78.00 Pure hypercholesterolemia, unspecified
CPT/HCPCS: 36415; 80048; 80061; 82306; 85027

== ENCOUNTER 2022-11-05 09:27 | Day surgery (SDC) | payer MEDICARE, SELFPAY ==
[2022-10-28 09:12] LABS: Mucous, Urine 0 SEEN /hpf (<or=2+); White Blood Cells 0 SEEN /hpf (0-5)
[2022-10-28 10:13] LABS: Color, Urine Yellow (Yellow); Glucose, Dipstick 1000 mg/dl (Normal); Ketone-Dipstick Negative (Negative); Leukocyte Esterase-Dipstick Negative /ul (Negative); Nitrite-Dipstick Negative (Negative); Occult Blood-Urine 50 /ul (Negative); Protein-Dipstick 30 mg/dl (Negative); Specific Gravity, Urine 1.015 (1.002-1.030); Urine Bilirubin Dipstick Negative (Negative); Urine Clarity Clear (Clear); Urine Urobilinogen Normal (Normal)
[2022-10-28 10:15] LABS: Hematocrit 44.6 % (40-54); Hemoglobin 14.5 g/dL (13.0-16.5); Mean Corp Hgb Conc 32.5 g/dL (32-36); Mean Corpuscular Hgb 30.8 pg (27.0-32.0); Mean Corpuscular Volume 94.7 fL (80-94); Mean Platelet Vol. 10.6 fl (6.2-12.0); Platelet Count 242 K/mm3 (150-450); RBC Distribution Width CV 13.6 % (11.6-14.6); RBC Distribution Width SD 46.9 fl (35.1-43.9); Red Blood Count 4.71 M/mm3 (4.6-6.2); White Blood Count 12.4 K/mm3 (4.4-11.0)
[2022-10-28 10:32] LABS: Hyaline Cast 0-5 SEEN /lpf (0-5); Red Blood Cells-Urine 0-5 SEEN /hpf (0-5); Squamous Epithelial Cells - UA 0-5 SEEN /hpf (0-5)
[2022-10-28 10:33] LABS: Bacteria 1+ /hpf (None Seen)
[2022-10-28 10:47] LABS: Anion Gap 8 (5-15); BUN 35 mg/dL (7-18); BUN/Creat Ratio 17.9 RATIO (10-20); Calcium,Total 9.1 mg/dL (8.5-10.1); Chloride 109 mmol/L (98-107); Creatinine, Serum 1.95 mg/dL (0.70-1.30); EST Glomerular Filtration Rate 36 mL/min (>60); Est Glom Filt Rate - Afr Amer 43 mL/min (>60); Glucose 154 mg/dL (74-106); Potassium 4.1 mmol/L (3.5-5.1); Sodium Level 139 mmol/L (136-145)
--- NOTE | 2022-11-03 20:35 | HP.PCM_ITS ---
History and Physical Date of Admission: 11/05/22 CAMILO SAMUELS, is a 77 year old white male who presents to the [facility] today for a generator change. He has a history of an underlying non-CAD related cardiomyopathy, CHF, mitral/tricuspid valve regurgitation, biventricular ICD/BUILDING MAINTENANCE MECHANIC therapy, hyperlipidemia, and hypertension, superimposed on hyperglycemia. His previous cardiovascular studies available for review are noted below. From a cardiac standpoint, the patient is doing well. He denies any palpitations, chest pain, pressure or heaviness. He denies SOB, Orthopnea, and PND. He does not have bleeding issues; no blood in urine, stool or nosebleeds. He denies any decrease in energy level, myalgias, or claudication. He does have joint pain-arthritis. He does have occasional bilateral ankle edema. He denies sudden weight gain. He denies dizziness, lightheadedness, syncopal or near syncopal episodes, and headaches. He continues to check his blood pressure at home.? He notes overall his systolic blood pressures remain approximately 120 mmHg with some variation in his diastolic blood pressures remain approximately 60-70 mmHg with some variation. Intake Vital Signs: See EMR Visit Reasons:?Generator change Allergies No Known Allergies Allergy (Verified 09/30/22 08:44) Medications See EMR [facility] Medical History? Acute renal failure Biventricular implantable cardioverter-defibrillator (ICD) in situ (~08/2007) Chronic diastolic heart failure Dilated cardiomyopathy Essential hypertension Gout Kidney stone Nonrheumatic mitral valve regurgitation Nonrheumatic tricuspid valve regurgitation MERLY (obstructive sleep apnea) Pure hypercholesterolemia Right ureteral calculus Type 2 diabetes mellitus Family History? Father?? Myocardial infarction,? Onset Age: 68 Social History? Smoking Status:? Former smoker alcohol intake:? never ROS Const Const: Negative for fatigue, weakness, fever(s), headache(s), chills, frequent falls, weight gain or weight loss Eyes Eyes: Negative for blind spots, loss of peripheral vision, transient loss of vision, blurry vision, change in vision, double vision, floaters or tunnel vision ENT ENT: Negative for headache(s), dizziness, Nosebleed/epistaxis, balance problems or neck pain Cardio Chest Pain: No Palpitations: No Edema: Bilateral (occasional-ankle) Muscle aches with walking: None Resp Respiratory: Negative for SOB with activity, SOB at rest or SOB orthopnea\SOB lying down GI GI: Negative nausea, vomiting, heartburn, bloating, vomiting blood/hematemesis, bright, red blood in stools or black,tarry stools Musc Musc: Negative for muscle aches/ myalgia, muscle weakness, joint pain or balance problems Neuro Neuro: Negative for dizziness, lightheadedness, near syncope, syncope, orthostatic symptoms, frequent falls, headache(s), weakness, blurry vision or double vision Teo Hematologic/Lymphatic: Negative for easy bleeding or easy bruising Endo Endo: Negative for fatigue Cardiology Exam Const Appearance: cooperative, healthy appearing, comfortable, no acute distress, well developed and well groomed Nutritional Appearance: well nourished and obese Orientation: alert, awake and oriented x3 Head Head: normal to inspection Ears: hearing grossly normal bilaterally Nose: external nose normal Face and Sinus: face symmetric Eyes Eyelids: eyelids normal Conjunctivae: conjunctivae normal Pupils: PERRL EOM: EOM intact bilaterally Neck Neck: normal visual inspection, full ROM and no JVD Carotids: normal carotid upstroke Chest Chest inspection: normal inspection of the chest, symmetric chest movement, Pacemaker/ICD Yes left pectoral incision and normal respiratory effort; Negative cough Auscultation: Bilateral: Clear to Auscultation Cardio Rate: regular rate Rhythm: regular rhythm Heart sounds: S1 normal and S2 normal; Negative rub, gallop or murmur GI GI: normal to inspection and obese Neuro General: patient alert, patient awake, patient oriented x3 and gait normal Skin Skin: no rashes or lesions noted Extremities Pulses: Normal: Right Posterior Tibial Pulse, Left Posterior Tibial Pulse, Right Radial Pulse and Left Radial Pulse Lower Extremity Edema: Trace: Bilateral (ankle region) Psych Psychological: normal affect Supplemental Info Supplemental Information Echocardiogram 05/08/2022: Interpretation Summary The study was technically difficult. Contrast injection was performed. ? Based upon the 2D echocardiographic contrast enhanced images obtained there appears to be left ventricular dilatation, with grossly normal left ventricular wall motion, with borderline low LV systolic function. The estimated ejection fraction is 50 %. The left atrium is mildly enlarged. Mild focal mitral valve calcification of the posterior leaflet. Mild (1+) mitral valve insufficiency. Trivial tricuspid valve insufficiency. Mild (1+) aortic valve insufficiency. Right ventricular systolic pressure estimated to be 32 mmHg. Diastolic function is indeterminate. ICD or pacer leads identified within the right atrium ICD or pacer leads identified within the right ventricle. Transthoracic echocardiogram 05/31/2013:? Interpretation Summary The study was technically difficult. Contrast injection was performed. Mildly dilated left ventricle. Based upon the 2D echocardiographic and contrast enhanced views there appears to he grossly normal left ventricular size, wall motion, and borderline low left ventricular systolic function. The estimated ejection fraction is 50 %. Mild concentric left ventricular hyper trophy. The left atrium is mildly enlarged. Trivial mitral valve insufficiency. Trivial tricuspid valve insufficiency. Trivial aortic valve insufficiency. Trivial pulmonic valve insufficiency. Right ventricular systolic pressure estimated to be 35 mmHg. lCD or pacer leads identified within the right atrium lCD or pacer leads identified within the right ventricle. His?diagnostic cardiac catheterization was performed [facility] on 11/02/2006.? The result is as noted below. FINAL IMPRESSION 1. Elevated left ventricular end diastolic pressure c/w with decreased LV systclic function 2. Secondary pulmonary hypertension thought compatible with underlying decreased LV systolic function as well as a possible primary pulmonary process. 3. Oxygen saturations No definitive evidence of intracardiac shunting phenomenon. 4. Left ventricle: Dilated with severe global left, ventricular systolic dysfunction with an estimated LVEP of 15r. S. Left main Large soft vessel - angiographically normal. G. LAD Minimal luminal irregularities. 7. Lc.X Diffuse minimal luminal irregularities. 8, 0M3: Large bifurcating vessel with proximal 25% tapering stenosis. 9. RCA Large dominant vessel with diffuse minimal luminal irregularities. A. AV [id number] with ostial 25-50% appearing Stenosis. 10. Mitral valve Trace mitral regurgitation Labs: ?? ? LDL Cholesterol 67 mg/dL (0-130) ?? ? HDL Cholesterol 32 mg/dL (40-) L ?? ? Triglycerides 169 mg/dL (-199) ?? ? VLDL Cholesterol 34 mg/dL (5-40) Diagnostics: ?? ? Echocardiogram ? Pacemaker Check ? Pulmonary: ?? ? No Data to Display Assessment and Plan Assessment and Plan (1) Dilated cardiomyopathy: ?Status:?Chronic ?Plan: Patient has a history of dilated cardiomyopathy.? His most recent echocardiogram from 04/2022 demonstrated normal left ventricular function with an estimated ejection fraction of 50%.? He appears stable at this time, and denies any recent symptoms or events.? He will continue with his current medical therapy, along with monitoring for any concerning symptoms.? (2) Chronic diastolic heart failure: ?Status:?Chronic ?Plan: Patient has a history of chronic diastolic heart failure.? He appears stable at this time.? He will continue with his current medical therapy, along with monitoring for any concerning symptoms.? (3) Biventricular implantable cardioverter-defibrillator (ICD) in situ: ?Status:?Chronic ?Plan: Patient does have a biventricular ICD.? Patient's most recent ICD interrogation from 07/16/2022 shows no VT/VF episodes and no MS episodes since 04/15/2022.? Presenting rhythm shows AV sequential biventricular paced at 70 ppm.? Biventricular paced= 98%.? AP=9.4%.? Estimated battery life 4 months.? Patient's EKG from today demonstrated electronic ventricular pacemaker, rate of 67 bpm.? Patient will undergo a generator change. (4) Nonrheumatic mitral valve regurgitation: ?Status:?Chronic ?Plan: Patient has a history of nonrheumatic mitral valve regurgitation.? His most recent echocardiogram from 05/08/2022 demonstrated ejection fraction 50%, mild focal mitral valve calcification of the posterior leaflet, and mild (1+) mitral valve insufficiency. He appears stable. We will continue to monitor this with history, exam, and echocardiograms as deemed appropriate. (5) Nonrheumatic tricuspid valve regurgitation: ?Status:?Chronic ?Plan: Patient has a history of nonrheumatic tricuspid valve regurgitation.? His most recent echocardiogram from 05/08/2022 demonstrated an ejection fraction of 50%, and trivial tricuspid valve insufficiency.? At this time he appears stable.? We will continue to monitor this with history, exam, and echocardiograms as deemed appropriate. (6) Pure hypercholesterolemia: ?Status:?Chronic ?Plan: Patient has a history of hypercholesterolemia. His PCP monitors this. His most recent lipid panel from 09/21/2022: cholesterol 133, HDL 32, LDL 67, triglycerides 169.? He will continue on Vascepa 2 g twice daily, and aggressive risk factor and lifestyle modifications. (7) Essential hypertension: ?Status:?Chronic ?Plan: Patient has a history of hypertension. He states his blood pressures at home are well controlled-120/60-70's. He will continue with his current medical therapy, along with monitoring his blood pressures at home. He will notify our office of any persistent high or low blood pressure readings.
[2022-11-04 09:55] VITALS: BMI 34.8
--- NOTE | 2022-11-05 12:24 | EX.DEFIBPROC ---
Defibrillator Procedure Note Defibrillator Procedure Note Diagnosis: Cardiomyopathy with NYHA Class ii. biv ICD for primary prevention. Device generator replacement for normal battery depletion Preoperative diagnosis is device at end of life for normal battery depletion. Postoperative diagnosis same as above. After informed consent and IV antibiotics the patient was brought to the [facility] catheterization laboratory and the skin over the device was prepped and draped in the usual sterile manner. Intermittent boluses of Versed, and fentanyl were used for sedation and analgesia as well as 1% subcutaneous lidocaine. An incision was made over the pre-existing device. Using blunt and Bovie dissection the pocket was opened and the device was removed. Careful attention was paid not to injure the pre-existing leads. The leads were removed from the device header and they were interrogated. There is normal lead function. Hemostasis was obtained. The pocket was flushed with antibiotic solution. The sponge and needle count were correct. The new device was brought to the field. The leads were placed in the appropriate position in the header and secured by the set screw. The leads and the device were then placed in the pocket. The pocket was closed with a deep layer of running 2-0 Vicryl, a superficial layer of running 4-0 Vicryl, skin with Steri-Strips which were covered with a rolled 4 x 4 and Tegaderm. Patient left the room with the device programmed to proper parameters and there were no complications. The device is a biv icd chamber chadwick generator. All lead parameters were tested and found to be functionally normal. Lead and device serial and model numbers are available in the chart documents provided by the device company used equipment sales representative procedure summary.
== END 2022-11-05 14:00 | disposition home or self-care (01) ==
LOC: CLSP 09:28
PROVIDERS: Internal Medicine Cardiovascular Disease; PCP Family Medicine; Referring Provider Internal Medicine Cardiovascular Disease; Visit Provider Internal Medicine Cardiovascular Disease
DX: Z45.02 Encounter for adjustment and management of automatic implantable cardiac defibrillator (principal); I50.32 Chronic diastolic (congestive) heart failure; I42.0 Dilated cardiomyopathy; I27.29 Other secondary pulmonary hypertension; I34.0 Nonrheumatic mitral (valve) insufficiency; E78.00 Pure hypercholesterolemia, unspecified; Z87.891 Personal history of nicotine dependence
CPT/HCPCS: 33264; 36415; 80048; 81001; 85027; 85610; 93641; 99152; 99153; J7040; J7050

== ENCOUNTER → 2023-02-05 | Outpatient (CLI) | payer MEDICARE, SELFPAY ==
--- NOTE | 2023-02-05 13:47 | RAD_ITS ---
STUDY: X-RAY CHEST REASON FOR EXAM: Male, 77 years old. SOB TECHNIQUE: PA and lateral COMPARISON: July 16, 2014 FINDINGS: There is left lower lobe infiltrate. There is no demonstrated pleural abnormality. Biventricular pacer noted on the left with electrodes in satisfactory position Normal size heart. Normal mediastinum and coretta. Normal visualized pulmonary arteries. Normal visualized aortic arch and descending thoracic aorta. Normal visualized thoracic spine. Normal visualized ribs, clavicles, and shoulders. There is no demonstrated abnormality of the visualized soft tissue structures of the upper abdomen. RAD/Chest PA and Lateral IMPRESSION: Left lower lobe pneumonic infiltrate.. Electronically Signed: Brennon Mcclellan MD at 20:58 EDT ,
[2023-02-05 15:41] LABS: Hematocrit 44.4 % (40-54); Hemoglobin 13.7 g/dL (13.0-16.5); Mean Corp Hgb Conc 30.9 g/dL (32-36); Mean Corpuscular Hgb 29.9 pg (27.0-32.0); Mean Corpuscular Volume 96.9 fL (80-94); Mean Platelet Vol. 10.9 fl (6.2-12.0); Platelet Count 302 K/mm3 (150-450); RBC Distribution Width CV 14.2 % (11.6-14.6); RBC Distribution Width SD 50.3 fl (35.1-43.9); Red Blood Count 4.58 M/mm3 (4.6-6.2); White Blood Count 24.3 K/mm3 (4.4-11.0)
[2023-02-05 16:14] LABS: Anion Gap 7 (5-15); BUN 42 mg/dL (7-18); BUN/Creat Ratio 16.5 RATIO (10-20); Calcium,Total 9.7 mg/dL (8.5-10.1); Chloride 110 mmol/L (98-107); Creatinine, Serum 2.55 mg/dL (0.70-1.30); EST Glomerular Filtration Rate 26 mL/min (>60); Est Glom Filt Rate - Afr Amer 32 mL/min (>60); Glucose 137 mg/dL (74-106); Potassium 4.3 mmol/L (3.5-5.1); Sodium Level 136 mmol/L (136-145)
[2023-02-05 16:24] LABS: BNP,B-Type NATRIURETIC PEPTIDE 94.9 pg/mL (0-100)
== END | disposition home or self-care (01) ==
LOC: MTLAB 13:45
PROVIDERS: PCP Family Medicine; Referring Provider Family Medicine; Visit Provider Family Medicine
DX: R06.02 Shortness of breath (principal)
CPT/HCPCS: 36415; 71046; 80048; 83880; 85027

== ENCOUNTER → 2023-04-01 | Outpatient (CLI) | payer MEDICARE, SELFPAY ==
[2023-04-01 12:06] LABS: Absolute Lymphocyte Count 2.13 X10^3/uL (0.83-4.51); Basophil# 0.09 X10^3/uL; Basophil% 0.8 % (0-1); Eosinophil# 0.33 X10^3/uL; Eosinophils% 3.1 % (0-5); Hematocrit 46.3 % (40-54); Hemoglobin 14.7 g/dL (13.0-16.5); Lymphocyte # 2.13 X10^3/ul (0.83-4.51); Lymphocyte % 20.1 % (19-41); Mean Corp Hgb Conc 31.7 g/dL (32-36); Mean Corpuscular Hgb 30.2 pg (27.0-32.0); Mean Corpuscular Volume 95.3 fL (80-94); Mean Platelet Vol. 10.3 fl (6.2-12.0); Monocyte# 0.95 X10^3/uL; Monocyte% 8.9 % (0-10); NRBC Flagged by Analyzer 0 % (0-5); Neutrophil # 7.02 X10^3/uL (2.7-7.7); Neutrophil % 66.2 % (47-70); Platelet Count 228 K/mm3 (150-450); RBC Distribution Width CV 14.4 % (11.6-14.6); RBC Distribution Width SD 50.4 fl (35.1-43.9); Red Blood Count 4.86 M/mm3 (4.6-6.2); White Blood Count 10.6 K/mm3 (4.4-11.0)
[2023-04-01 12:37] LABS: PTHIN 53.7 pg/mL (18.4-80.1)
[2023-04-01 12:42] LABS: Vitamin D,25 Hydroxy 80.4 ng/mL
[2023-04-01 12:45] LABS: Anion Gap 5 (5-15); BUN 29 mg/dL (7-18); BUN/Creat Ratio 15.9 RATIO (10-20); Calcium,Total 9.2 mg/dL (8.5-10.1); Chloride 113 mmol/L (98-107); Creatinine, Serum 1.82 mg/dL (0.70-1.30); EST Glomerular Filtration Rate 39 mL/min (>60); Est Glom Filt Rate - Afr Amer 47 mL/min (>60); Ferritin 54 ng/mL (26-388); Glucose 125 mg/dL (74-106); Iron 70 ug/dL (65-175); Potassium 4.3 mmol/L (3.5-5.1); Sodium Level 139 mmol/L (136-145); Thyroid Stim Hormone (TSH) 3.11 uIU/mL (0.358-3.74)
[2023-04-01 13:09] LABS: Hemoglobin A1c 7.4 % (3.8-5.6)
== END | disposition home or self-care (01) ==
LOC: MFPLAB 10:20
PROVIDERS: PCP Family Medicine; Visit Provider Family Medicine
DX: E11.65 Type 2 diabetes mellitus with hyperglycemia (principal); E11.22 Type 2 diabetes mellitus with diabetic chronic kidney disease; N18.30 Chronic kidney disease, stage 3 unspecified; J18.9 Pneumonia, unspecified organism; R79.89 Other specified abnormal findings of blood chemistry
CPT/HCPCS: 36415; 80048; 82306; 82728; 83036; 83540; 83970; 84439; 84443; 85025

== ENCOUNTER → 2023-07-01 | Outpatient (CLI) | payer MEDICARE, SELFPAY ==
[2023-07-01 11:22] LABS: Anion Gap 6 (5-15); BUN 34 mg/dL (7-18); BUN/Creat Ratio 16.9 RATIO (10-20); Calcium,Total 9.4 mg/dL (8.5-10.1); Chloride 108 mmol/L (98-107); Creatinine, Serum 2.01 mg/dL (0.70-1.30); EST Glomerular Filtration Rate 34 mL/min (>60); Est Glom Filt Rate - Afr Amer 42 mL/min (>60); Glucose 164 mg/dL (74-106); Potassium 4.4 mmol/L (3.5-5.1); Sodium Level 137 mmol/L (136-145)
== END | disposition home or self-care (01) ==
LOC: MTLAB 09:10
PROVIDERS: PCP Family Medicine; Visit Provider Family Medicine
DX: E11.22 Type 2 diabetes mellitus with diabetic chronic kidney disease (principal); E11.59 Type 2 diabetes mellitus with other circulatory complications; N18.30 Chronic kidney disease, stage 3 unspecified
CPT/HCPCS: 36415; 80048; 82043

== ENCOUNTER → 2023-08-05 | Outpatient (CLI) | payer MEDICARE, SELFPAY ==
[2023-08-05 13:14] LABS: Anion Gap 8 (5-15); BUN 29 mg/dL (7-18); BUN/Creat Ratio 15.1 RATIO (10-20); Calcium,Total 9.3 mg/dL (8.5-10.1); Chloride 110 mmol/L (98-107); Creatinine, Serum 1.92 mg/dL (0.70-1.30); EST Glomerular Filtration Rate 36 mL/min (>60); Est Glom Filt Rate - Afr Amer 44 mL/min (>60); Glucose 172 mg/dL (74-106); Sodium Level 139 mmol/L (136-145)
== END | disposition home or self-care (01) ==
LOC: MTLAB 09:31
PROVIDERS: PCP Family Medicine; Referring Provider Family Medicine; Visit Provider Family Medicine
DX: E11.21 Type 2 diabetes mellitus with diabetic nephropathy (principal)
CPT/HCPCS: 36415; 80048

== ENCOUNTER → 2023-11-04 | Outpatient (CLI) | payer MEDICARE, SELFPAY ==
[2023-11-04 13:01] LABS: Anion Gap 7 (5-15); BUN 29 mg/dL (7-18); Calcium,Total 10.1 mg/dL (8.5-10.1); Chloride 109 mmol/L (98-107); Creatinine, Serum 1.81 mg/dL (0.70-1.30); EST Glomerular Filtration Rate 39 mL/min (>60); Est Glom Filt Rate - Afr Amer 47 mL/min (>60); Glucose 146 mg/dL (74-106); Potassium 4.6 mmol/L (3.5-5.1); Sodium Level 137 mmol/L (136-145)
== END | disposition home or self-care (01) ==
LOC: MFPLAB 09:41
PROVIDERS: PCP Family Medicine; Visit Provider Family Medicine
DX: E11.65 Type 2 diabetes mellitus with hyperglycemia (principal)
CPT/HCPCS: 36415; 80048

== ENCOUNTER → 2024-01-17 | Outpatient (CLI) | payer MEDICARE, SELFPAY ==
--- NOTE | 2024-01-17 08:41 | RAD_ITS ---
STUDY: X-RAY - PELVIS AND BILATERAL HIPS REASON FOR EXAM: Male, 78 years old. Hip pain. TECHNIQUE: AP view of the pelvis.? 2 views of the right hip, and 2 views of the left hip were obtained. COMPARISON: None. FINDINGS: Osteopenia. Mild arthrosis of both sacroiliac joints. Mild arthrosis of the symphysis pubis. Moderate arthrosis of both hips. Normal visualized bowel gas pattern with air seen to the rectosigmoid. Phleboliths and vascular calcification. RAD/Hips B/L min 2 views w/ Pelvis IMPRESSION: Osteopenia with osteoarthritic changes. No acute osseous abnormality. Electronically Signed: Estiven Davis MD at 9:35 EDT ,
--- NOTE | 2024-01-17 09:00 | RAD_ITS ---
STUDY: X-RAY - LUMBAR SPINE REASON FOR EXAM: Male, 78 years old. Back pain. TECHNIQUE: 4 view(s) of the lumbar spine were obtained. COMPARISON: 01/28/2015 FINDINGS: Stable osteopenia. Slight reversal of the normal lordosis. Increased rotatory levoscoliosis. Normal alignment of the vertebral bodies. Diffuse lower thoracic and lumbosacral facet sclerosis. Mild loss of height of the T12-L2 vertebral bodies, unchanged from prior study. Diffuse moderate intervertebral disc space narrowing with osteophyte formation most marked at T12-L1, L1-L2 and L2-L3, slightly more prominent than on the prior study. Phleboliths, vascular calcifications and calcification projected over the right upper quadrant which may represent a gallstone, unchanged from prior study. RAD/L/S Spine Min 4 Views IMPRESSION: Osteopenia with diffuse moderate lower thoracic and lumbosacral facet sclerosis, slightly progressed since the prior study. No acute abnormality.. Electronically Signed: Estiven Davis MD at 9:39 EDT ,
== END | disposition home or self-care (01) ==
PROVIDERS: PCP Family Medicine; Referring Provider Anesthesiology Pain Medicine; Visit Provider Anesthesiology Pain Medicine
DX: M51.37 Other intervertebral disc degeneration, lumbosacral region (principal); M85.88 Other specified disorders of bone density and structure, other site
CPT/HCPCS: 72110; 73521

== ENCOUNTER → 2024-07-13 | Outpatient (CLI) | payer MEDICARE, SELFPAY ==
[2024-07-13 12:27] LABS: Hematocrit 46.4 % (40-54); Hemoglobin 14.4 g/dL (13.0-16.5); Mean Corpuscular Volume 96.7 fL (80-94); Mean Platelet Vol. 10.6 fl (6.2-12.0); Platelet Count 265 K/mm3 (150-450); RBC Distribution Width CV 13.9 % (11.6-14.6); RBC Distribution Width SD 48.7 fl (35.1-43.9); White Blood Count 13.4 K/mm3 (4.4-11.0)
[2024-07-13 12:47] LABS: Iron 62 ug/dL (65-175)
[2024-07-13 12:59] LABS: PTHIN 104.5 pg/mL (18.4-80.1); Vitamin D,25 Hydroxy 35.2 ng/mL
[2024-07-13 13:23] LABS: Vitamin B12 275 pg/mL (211-911)
[2024-07-13 13:28] LABS: AST(SGOT) 15 U/L (15-37); Alanine Aminotransfer ALT/SGPT 24 U/L (16-61); Albumin, Serum 3.6 g/dL (3.2-5.0); Alkaline Phosphatase 108 U/L (45-117); Anion Gap 8 (5-15); BUN 29 mg/dL (7-18); BUN/Creat Ratio 17.2 RATIO (10-20); Calcium,Total 9.7 mg/dL (8.5-10.1); Chloride 112 mmol/L (98-107); Cholesterol 130 mg/dL (200); Creatinine, Serum 1.69 mg/dL (0.70-1.30); EST Glomerular Filtration Rate 42 mL/min (>60); Est Glom Filt Rate - Afr Amer 51 mL/min (>60); Globulin 3.5 g/dL (2.2-4.2); Glucose 53 mg/dL (74-106); High Density Lipoprotein 33 mg/dL; Potassium 4.4 mmol/L (3.5-5.1); Protein, Total 7.1 g/dL (6.4-8.2); Sodium Level 140 mmol/L (136-145); Triglycerides 142 mg/dL; Very Low Density Lipoprotein 28 mg/dL (5-40)
== END | disposition home or self-care (01) ==
LOC: MFPLAB 09:42
PROVIDERS: PCP Family Medicine; Visit Provider Family Medicine
DX: E11.21 Type 2 diabetes mellitus with diabetic nephropathy (principal); E11.22 Type 2 diabetes mellitus with diabetic chronic kidney disease; N18.30 Chronic kidney disease, stage 3 unspecified
CPT/HCPCS: 36415; 80053; 80061; 82306; 82607; 83540; 83970; 84443; 85027

== ENCOUNTER → 2024-11-10 | Outpatient (CLI) | payer MEDICARE, SELFPAY ==
[2024-11-10 17:41] LABS: Absolute Lymphocyte Count 1.28 X10^3/uL (0.83-4.51); Absolute Neutrophil Count 9.4 X10^3/uL (2.0-7.7); Basophil# 0.09 X10^3/uL; Basophil% 0.8 % (0-1); Eosinophils% 1.7 % (0-5); Hematocrit 47.4 % (40-54); Hemoglobin 14.8 g/dL (13.0-16.5); Lymphocyte # 1.28 X10^3/ul (0.83-4.51); Lymphocyte % 10.8 % (19-41); Mean Corp Hgb Conc 31.2 g/dL (32-36); Mean Corpuscular Hgb 30.1 pg (27.0-32.0); Mean Corpuscular Volume 96.5 fL (80-94); Mean Platelet Vol. 10.5 fl (6.2-12.0); Monocyte# 0.73 X10^3/uL; Monocyte% 6.1 % (0-10); NRBC Flagged by Analyzer 0 % (0-5); Neutrophil # 9.36 X10^3/uL (2.7-7.7); Neutrophil % 78.7 % (47-70); Platelet Count 219 K/mm3 (150-450); RBC Distribution Width CV 13.4 % (11.6-14.6); RBC Distribution Width SD 47.7 fl (35.1-43.9); Red Blood Count 4.91 M/mm3 (4.6-6.2); White Blood Count 11.9 K/mm3 (4.4-11.0)
[2024-11-10 17:48] LABS: D-Dimer Quantitative (DVT/PE) 0.46 FEU/ug/m (0.27-0.49)
[2024-11-10 18:02] LABS: BNP,B-Type NATRIURETIC PEPTIDE 110.1 pg/mL (0-100)
[2024-11-10 18:12] LABS: AST(SGOT) 13 U/L (15-37); Alanine Aminotransfer ALT/SGPT 27 U/L (16-61); Albumin, Serum 3.5 g/dL (3.2-5.0); Alkaline Phosphatase 86 U/L (45-117); Anion Gap 7 (5-15); BUN 24 mg/dL (7-18); BUN/Creat Ratio 15.1 RATIO (10-20); Calcium,Total 9.6 mg/dL (8.5-10.1); Chloride 110 mmol/L (98-107); Creatinine, Serum 1.59 mg/dL (0.70-1.30); EST Glomerular Filtration Rate 45 mL/min (>60); Est Glom Filt Rate - Afr Amer 54 mL/min (>60); Globulin 3.4 g/dL (2.2-4.2); Glucose 57 mg/dL (74-106); Potassium 4.6 mmol/L (3.5-5.1); Protein, Total 6.9 g/dL (6.4-8.2); Sodium Level 139 mmol/L (136-145)
== END | disposition home or self-care (01) ==
LOC: MFPLAB 10:28
PROVIDERS: Family Medicine; PCP Family Medicine; Referring Provider Family Medicine; Visit Provider Family Medicine
DX: J20.9 Acute bronchitis, unspecified (principal)
CPT/HCPCS: 36415; 80053; 83880; 85025; 85379

== ENCOUNTER → 2025-03-14 | Outpatient (CLI) | payer MEDICARE, SELFPAY ==
--- NOTE | 2025-03-14 12:34 | RAD_ITS ---
PROCEDURE: L/S SPINE W BEND MIN 6 VW 03/14/2025 REASON FOR EXAM: BILATERAL LEG PAIN TECHNIQUE: 6 views; AP, bilateral oblique, lateral and flexion-extension COMPARISON: 01/17/2024 FINDINGS: 5 [id number] lumbar vertebral body types again identified. A leftward curvature, scoliosis with left pelvic tilt again seen. Partially calcified possible gallstone again noted. AICD seen. Obliques are limited due to positioning and osteopenia. No fracture or malalignment. L1-2 further disc space narrowing now severe with also increased degenerative endplate changes. L2-3 similar appearance of [id number] disc space narrowing and degenerative endplate changes L3-4 appears to have interval further decrease in disc space now severe with again note of degenerative endplate changes Bilateral facet degenerative changes again noted. Aortic atherosclerotic calcification. No evidence of instability identified. RAD/L/S Spine w Bend Min 6 Vw IMPRESSION: Multilevel spondylosis/discogenic change at some levels appear increased from t he prior as above. Reading Location: [id number]
== END | disposition home or self-care (01) ==
LOC: MTRAD 12:34
PROVIDERS: PCP Family Medicine; Referring Provider Family Medicine; Visit Provider Family Medicine
DX: M79.604 Pain in right leg (principal); M79.605 Pain in left leg; M51.369 Other intervertebral disc degeneration, lumbar region without mention of lumbar back pain or lower extremity pain
CPT/HCPCS: 72114

== ENCOUNTER → 2025-04-10 | Outpatient (CLI) | payer MEDICARE, SELFPAY ==
[2025-04-10 10:10] LABS: Hematocrit 43.8 % (40-54); Hemoglobin 14.4 g/dL (13.0-16.5); Mean Corp Hgb Conc 32.9 g/dL (32-36); Mean Corpuscular Volume 94.4 fL (80-94); Mean Platelet Vol. 10.4 fl (6.2-12.0); Platelet Count 215 K/mm3 (150-450); RBC Distribution Width CV 13.5 % (11.6-14.6); RBC Distribution Width SD 46.4 fl (35.1-43.9); Red Blood Count 4.64 M/mm3 (4.6-6.2); White Blood Count 13.5 K/mm3 (4.4-11.0)
[2025-04-10 10:54] LABS: ALB/GLOB Ratio 1.4 RATIO (0.9-2.4); AST(SGOT) 16 U/L (<=37); Alanine Aminotransfer ALT/SGPT 20 U/L (<=46); Albumin, Serum 3.7 g/dL (3.4-4.8); Alkaline Phosphatase 91 U/L (40-129); Anion Gap 13 (5-15); BUN 23 mg/dL (4-19); BUN/Creat Ratio 15.7 RATIO (10-20); Calcium,Total 9.6 mg/dL (7.6-11.0); Carbon Dioxide 21.1 mmol/L (21.0-32.0); Chloride 106 mmol/L (98-108); Creatinine, Serum 1.46 mg/dL (0.70-1.20); EST Glomerular Filtration Rate 49 (>60); Globulin 2.7 g/dL (2.2-4.2); Glucose 184 mg/dL (70-99); Iron 95 ug/dL (65-175); Potassium 4.1 mmol/L (3.3-5.1); Protein, Total 6.4 g/dL (5.9-8.4); Sodium Level 140 mmol/L (133-145); Total Bilirubin 0.69 mg/dL (0.00-1.30)
[2025-04-10 11:04] LABS: Pro- Brain NATRIURETIC PEPTIDE 1407 pg/mL (<=1800); Vitamin D,25 Hydroxy 39.1 ng/mL (30-100)
--- OUTSIDE RECORDS SUMMARY | 2025-04-10 19:18 | XMS RPT_ITS | CCD ---
Author Organization [facility] Care Team Providers Care Sales Hunter Name Role Phone Dr. Allen Jones Primary Care Provider [phone] Dr. Thony Maddox Attending Provider Dr. Thony Maddox Referring Provider Dr. Allen Jones Referring Provider Yamel Alvarez Attending Provider Unavailable Dr. Allen Jones Primary Care Provider [phone] Dr. Phil Tan Referring Provider Dr. Phil Tan Other Provider [facility] BUS TRANSPORTATION MANAGER, BUS TRANSPORTATION MANAGERAshley Arellano Attending Provider Dr. Thony Maddox Attending Provider Dr. Thony Maddox Referring Provider Dr. Allen Jones Primary Care Provider [phone] Dr. Allen Jones Referring Provider Rohit BUS TRANSPORTATION MANAGER, BUS TRANSPORTATION MANAGERWinstonC Leydi Attending Provider Yamel Alvarez Attending Provider Unavailable Dr. Allen Jones Primary Care Provider [phone] Dr. Adrien Kat Attending Provider Dr. Adrien Kat Referring Provider Dr. Allen Jones Primary Care Provider [phone] Dr. Adrien Kat Attending Provider Dr. Adrien Kat Referring Provider Dr. Allen Jones Referring Provider Yamel Alvarez Attending Provider Unavailable Rohit BUS TRANSPORTATION MANAGER, BUS TRANSPORTATION MANAGER-C Leydi Attending Provider Dr. Ok Jones Primary Care Provider [phone] Dr. Ok Jones Referring Provider Rohit BUS TRANSPORTATION MANAGER, BUS TRANSPORTATION MANAGER-C Leydi Attending Provider Dr. Adrien Kat Attending Provider [phone] Adrien Kat Referring Provider [phone] Yamel Alvarez Attending Provider Unavailable Karen NIX, Dr. Euceda Primary Care Provider North NIX, Dr. Jurado Attending Provider North NIX, Dr. Jurado Referring Provider [phone] Karen NIX, Dr. Euceda Referring Provider Greer Grigsby Attending Provider [phone] Karen NIX, Dr. Euceda Attending Provider Ranney, Christopher Primary Care Unavailable North, Adrien Attending Unavailable North, North Pomfret Referring Unavailable Ranney, Christopher Attending Unavailable Ranney, Christopher Referring Unavailable Ranney, Christopher Primary Care Unavailable Ranney, Christopher Primary Care Unavailable Ranney, Christopher Attending Unavailable Ranney, Christopher Attending Unavailable Ranney, Christopher Referring Unavailable Ranney, Christopher Primary Care Unavailable Ranney, Christopher Primary Care Unavailable North, Adrien Attending Unavailable Ranney, Christopher Primary Care Unavailable North, Adrien Attending Unavailable North, North Pom[place] Referring Unavailable North, North [place] Referring Unavailable North, Adrien Attending Unavailable Ranney, Christopher Primary Care Unavailable Greer Grigsby Attending Unavail able Ranney, Christopher Referring Unavailable Ranney, Christopher Primary Care Unavailable North, Adrien Referring Unavailable North, Adrien Attending Unavailable Ranney, Christopher Primary Care Unavailable North, North [place] Referring Unavailable North, Adrien Attending Unavailable Ranney, Christopher Primary Care Unavailable North, North [place] Attending Unavailable Ranney, Christopher Primary Care Unavailable Ranney, Christopher Primary Care Unavailable Adrien Kat Attending Unavailable Adrien Kat Referring Unavailable Adrien Kat Attending Unavailable Ok Jones Primary Care Unavailable Ok Jones Referring Unavailable Medications Current Medications Medication Drug Class(es) Dates Sig (Normalized) Sig (Original) acetaminophen 325 mg / HYDROcodone bitartrate 5 mg oral tablet (20 sources) Opioid Agonist Start: 10-06-2019 Hydrocodone-Acetam inophen 5-325 mg tablet Active 1 {tbl} PO EVERY 6 HOURS as needed for Pain October 06, 2019 11:34am Start: 10-06-2019 take 1 tablet by john th every six hours Hydrocodone-Acetaminophen Active 1 TABLE T PO EVERY 6 HOURS October 06, 2019 11:34am Start: 11-06-2017 End: 10-06-2019 Hydrocodone-Acetaminophen 1 EACH tablet Discontinued 1 NMA PO EVERY 4 HOURS NEEDED as needed for Pain November 06, 2017 8:12am October 06, 2019 11:34am Start: 11-06-2017 End: 10-06-2019 Hydrocodone-Acetaminophen Di scontinued 1 EACH PO EVERY 4 HOURS NEEDED November 06, 2017 8:12am October 06, 2019 11:34am allopurinol 300 mg oral tablet (10 sources) Xanthine Oxidase Inhibitor Start: 07-17-2014 take 1 tablet by mouth once daily Allopurinol 300 MG tablet Active 300 mg PO DAILY July 17, 2014 12:00am amLODIPine 10 mg oral tablet (10 sources) Dihydropyridine Calcium Channel Suzette Start: 07-17-2014 take 1 tablet by mouth once daily Amlodipine 10 MG tablet Active 10 mg PO DAILY July 17, 2014 12:00am aspirin 81 mg chewable tablet (10 sources) Platelet Aggregation Inhibitor, Nonsteroidal Anti-inflammatory Drug Start: 07-17-2014 take 1 tablet by mouth once daily Aspirin 81 MG tablet,chewable Active 81 mg PO DAILY@0800 July 17, 2014 12:00am dapagliflozin 10 mg oral tablet (6 sources) Sodium-Glucose Cotransporter 2 Inhibitor Start: 03-30-2023 take 1 tablet by mouth once daily Dapagliflozin Propanediol (Farxiga) 10 mg tablet Active 10 mg PO DAILY March 30, 2023 12:00am furosemide 20 mg oral tablet (10 sources) Loop Diuretic Start: 02-23-2018 take 1 tablet by mouth once daily Furosemide 20 mg tablet Active 20 mg PO daily February 23, 2018 12:00am glimepiride 4 mg oral tablet (10 sources) Sulfonylurea Start: 11-06-2017 take 1 tablet by mouth once daily Glimepiride 4 MG tablet Active 4 mg PO DAILY November 06, 2017 1:00am icosapent ethyl 1000 mg oral capsule (10 sources) Start: 05-23-2021 Icosapent Ethyl (Vascepa) 1 gram capsule Active 2 g PO TWICE A DAY 360 90 May 23, 2021 12:00am 3 ml insulin aspart, human 100 unt/ml pen injector (20 sources) Insulin Analog Start: 09-30-2022 Insulin Aspart U-100 100 unit/mL (3 mL) insulin pen Active 20 U SC THREE TIMES A DAY 8.4 September 30, 2022 9:44am Start: 11-29-2020 End: 09-30-2022 Insulin Aspart U-100 100 uni t/mL (3 mL) insulin pen Discontinued SC THREE TIMES A DAY 3 November 29, 2020 9:54am September 30, 2022 9:44am Start: 11-29-2020 End: 09-30-2022 Insulin Aspart U-100 Discont inued SC THREE TIMES A DAY 3 November 29, 2020 9:54am September 30, 2022 9:44am Start: 03-09-2019 End: 11-29-2020 Insulin Aspart U-100 100 uni t/mL (3 mL) insulin pen Discontinued SC 3 March 09, 2019 12:00am November 29, 2020 9:54am Start: 03-09-2019 End: 11-29-2020 Insulin Aspart U-100 Discont inued SC 3 March 09, 2019 12:00am November 29, 2020 9:54am sensor 3 ml insulin glargine 100 unt/ml pen injector (2 sources) Insulin Analog Start: 01-18-2025 Insulin Glargine (Basaglar Tempo Pen(U-100)Insln) 100 unit/mL (3 mL) insulin pen, sensor Active 30 U SC EVERY EVENING January 18, 2025 12:00am linagliptin 5 mg oral tablet (10 sources) Dipeptidyl Peptidase 4 Inhibitor Start: 11-06-2017 take 1 tablet by mouth once daily Linagliptin 5 MG tablet Active 5 mg PO DAILY November 06, 2017 1:00am potassium chloride 20 meq extended release oral tablet (10 sources) Start: 02-23-2018 take 1 tablet by mouth once daily Potassium Chloride 20 mEq tablet extended release Active 20 meq PO daily February 23, 2018 12:00am Semaglutide (2 sources) Start: 05-18-2024 Semaglutide (Ozempic) 1 mg/dose (4 mg/3 mL) pen injector Active 1 mg SC EVERY WEEK May 18, 2024 12:00am Completed/Discontinued Medications Medication Drug Class(es) Dates Sig (Normalized) Sig (Original) carvedilol 25 mg oral tablet (20 sources) alpha-Adrenergic Suzette, beta-Adrenergic Suzette Start: 07-17-20 14 End: 05-12-20 24 take 1 tablet by mouth twice daily Carvedilol 25 mg tablet Discontinued 25 mg PO TWICE A DAY 180 June 03, 2023 3:44pm May 12, 2024 7:54am empagliflozin 10 mg oral tablet (10 sources) Sodium-Glucose Cotransporter 2 Inhibitor Start: 11-06-19 18 End: 02-24-20 18 take 1 tablet by mouth once daily Empagliflozin 10 MG tablet Discontinued 10 mg PO DAILY November 06, 2017 1:00am February 23, 2018 1:40pm hydroCHLOROthiazide 12.5 mg oral capsule (10 sources) Thiazide Diuretic Start: 07-17-20 14 End: 02-24-20 18 take 1 capsule by mouth once daily Hydrochlorothiazide 12.5 MG capsule Discontinued 12.5 mg PO DAILY July 17, 2014 12:00am February 23, 2018 1:40pm insulin detemir 100 unt/ml injectable solution (20 sources) Insulin Analog Start: 09-30-20 End: 01-19-20 Insulin Detemir U-100 (Levemir U-100 Insulin) 100 unit/mL solution Discontinued 70 U SC EVERY EVENING September 30, 2022 9:43am January 18, 2025 9:49am 30 units in AM, 70 units in PM Start: 11-29-2020 End: 09-30-2022 Insulin Detemir U-100 (Levem ir U-100 Insulin) 100 unit/mL solution Discontinued 65 U SC EVERY EVENING November 29, 2020 9:53am September 30, 2022 9:44am Start: 02-23-2018 End: 11-29-2020 Insulin Detemir U-100 (Levem ir U-100 Insulin) 100 unit/mL solution Discontinued 50 U SC EVERY EVENING February 23, 2018 12:00am November 29, 2020 9:54am lisinopril 40 mg oral tablet (20 sources) Angiotensin Converting Enzyme Inhibitor Start: 03-09-2019 End: 11-26-2021 take 1 tablet by mouth once daily Lisinopril 40 mg tablet Discontinued 40 mg PO DAILY 90 December 04, 2020 2:29pm November 26, 2021 4:52pm Start: 07-17-2014 End: 03-09-2019 take 1 tablet by mouth twice daily Lisinopril 40 mg tablet Discontinued 40 mg PO TWICE A DAY 180 November 04, 2018 1:02pm March 09, 2019 10:37am 24 hr metFORMIN hydrochloride 750 mg extended release oral tablet (10 sources) Biguanide Start: 07-17-2014 End: 02-23-2018 take 1 tablet by mouth once daily Metformin 750 MG tablet extended release 24 hr Discontinued 750 mg PO DAILY July 17, 2014 12:00am February 23, 2018 1:41pm nitrofurantoin, macrocrystals 25 mg / nitrofurantoin, monohydrate 75 mg oral capsule (7 sources) Nitrofuran Antibacterial Start: 10-30-2022 End: 11-06-2022 take 1 capsule by mouth every twelve hours at mealtime Nitrofurantoin Monohyd/M-Cryst (Macrobid) 100 mg capsule Discontinued 100 mg PO Q12H 14 7 October 30, 2022 1:00am November 05, 2022 1:00am November 06, 2022 1:04am must administer with a meal/food omega-3 acid ethyl esters (retirement) 1000 mg oral capsule (10 sources) Start: 07-17-2014 End: 05-23-2021 take 1 capsule by mouth twice daily [place]-3 Acid Ethyl Esters 1 GM capsule Discontinued 2 g PO TWICE A DAY July 17, 2014 12:00am May 23, 2021 8:53am sAXagliptin 5 mg oral tablet (10 sources) Dipeptidyl Peptidase 4 Inhibitor Start: 07-17-2014 End: 01-26-2018 take 1 tablet by mouth once daily Saxagliptin 5 MG tablet Discontinued 5 mg PO DAILY July 17, 2014 12:00am January 26, 2018 11:38am Vit E Acetate/Gly/Dimeth/ Water (10 sources) Start: 11-06-2017 End: 01-26-2018 take 1 capsule by mouth once daily Vit E Acetate/Gly/Dimeth/ Water Discontinued 1 CAP PO DAILY November 06, 2017 12:39pm January 26, 2018 11:38am Start: 11-06-2017 End: 01-26-2018 Vit E Acetate/Gly/Dimeth/Ltaanya er Discontinued 1 NMA PO DAILY November 06, 2017 1:00am January 26, 2018 11:38am Start: 11-06-2017 End: 01-26-2018 take 1 capsule by mouth once daily Vit E Acetate/Gly/Dimeth/Water Discontinued 1 CAP PO DAILY November 06, 2017 12:00am January 26, 2018 10:38am Start: 11-06-2017 End: 01-26-2018 take 1 capsule by mouth once daily Vit E Acetate/Gly/Dimeth/Water Discontinued 1 CAP PO DAILY November 06, 2017 1:00am January 26, 2018 11:38am vitamin e 90 mg oral capsule (10 sources) Start: 01-26-2018 End: 05-23-2021 take 1 capsule by mouth once daily Vitamin E 200 unit capsule Discontinued 200 U PO daily January 26, 2018 12:00am May 23, 2021 8:36am Problems Active Problems Problem Classification Problem Date Documented Da te Episodic/Chronic Cardiac dysrhythmias (7 sources) Paroxysmal atrial fibrillation; Translations: [Paroxysmal atrial fibrillation] Onset: 02-13-2025 01-18-2025 Chronic Conduction disorders (20 sources) Biventricular automatic implantable cardioverter defibrillator in situ; Translations: [Presence of automatic (implantable) cardiac defibrillator] Onset: 10-18-2006 Chronic Congestive heart failure; nonhypertensive (20 sources) Chronic diastolic heart failure; Translations: [Chronic diastolic (congestive) heart failure] Chronic Diabetes mellitus with complications (1 source) Type 2 diabetes mellitus with diabetic nephropathy; Translations: [Type 2 diabetes mellitus with diabetic nephropathy] Onset: 08-10-2024 Chronic Diabetes mellitus without complication (10 sources) Type 2 diabetes mellitus; Translations: [Type 2 diabetes mellitus without complications] 01-26-2018 Chronic Disorders of lipid metabolism (17 sources) Pure hypercholesterolemia ; Translations: [Pure hypercholesterolemia , unspecified] Chronic Essential hypertension (17 sources) Essential hypertension; Translations: [Essential (primary) hypertension] Chronic Gout and other crystal arthropathies (10 sources) Gout; Translations: [Gout, unspecified] 01-26-2018 Chronic Heart valve disorders (20 sources) Tricuspid incompetence, non-rheumatic ; Translations: [Nonrheumatic tricuspid (valve) insufficiency] Chronic Other connective tissue disease (1 source) Pain in right leg; Translations: [Pain in right leg] Onset: 03-20-2025 Episodic Alicia-; endo-; and myocarditis; cardiomyopathy (except that caused by tuberculosis or sexually transmitted disease) (20 sources) Dilated cardiomyopathy; Translations: [Dilated cardiomyopathy] Onset: 02-13-2025 Chronic Residual codes; unclassified (10 sources) Obstructive sleep apnea syndrome; Translations: [Obstructive sleep apnea (adult) (pediatric)] 01-26-2018 Chronic Past or Other Problems Problem Classification Problem Date Documented Da te Episodic/Chronic Acute bronchitis (1 source) Acute bronchitis, unspecified; Translations: [Acute bronchitis, unspecified] Onset: 11-30-2024 Episodic Results Test Name Value Interpretation Reference Range Facility L/S Spine w Bend Min 6 Vwon 03-14-2025 L/S Spine w Bend Min 6 Vw [facility] [address] [place] [id number] L/S Spine w Bend Min 6 Vw MR#: [id number] Acct: [id number] Name: CAMILO HALE Rep #: [id number] : 1945 M 79 From: John Costa MD PCP: Dr. Ok Jones MD Status: REG CLI Study: L/S Spine w Bend Min 6 Vw Date of Exam: Exam# [id number] Ordering Dr: Ok Jones PROCEDURE: L/S SPINE W BEND MIN 6 VW 03/14/2025 REASON FOR EXAM: BILATERAL LEG PAIN TECHNIQUE: 6 views; AP, bilateral oblique, lateral and flexion-extension COMPARISON: 01/17/2024 FINDINGS: 5 [id number] lumbar vertebral body types again identified. A leftward curvature, scoliosis with left pelvic tilt again seen. Partially calcified possible gallstone again noted. AICD seen. Obliques are limited due to positioning and osteopenia. No fracture or malalignment. L1-2 further disc space narrowing now severe with also increased degenerative endplate changes. L2-3 similar appearance of byrfkkbp-pd-lzajdy disc space narrowing and degenerative endplate changes L3-4 appears to have interval further decrease in disc space now severe with again note of degenerative endplate changes Bilateral facet degenerative changes again noted. Aortic atherosclerotic calcification. No evidence of instability identified. RAD/L/S Spine w Bend Min 6 Vw IMPRESSION: Multilevel spondylosis/discogenic change at some levels appear increased from the prior as above. Reading Location: [id number] CC: Dr. Ok Jones MD Enterprise Manager: Signed Normal [facility] Cardiology Visit Reporton Cardiology Visit Report [facility] [address] [place] [address] OFFICE VISIT Date of Service: 01/18/25 MR#: [id number] Acct: [id number] Name: CAMILO HALE Rep #: [id number] : 1945 Provider: BRIANA Ferrera Age/Sex: 79/M Location[place] [facility] Status: Signed HPI HPI History of Present Illness Details: CAMILO HALE, is a 79 year old white male who presents to the office today for a cardiovascular outpatient follow-up visit. 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 He underwent a generator change in October of this year. From a cardiac standpoint, the patient is doing well. He denies any palpitations, or chest pain. He denies SOB, Orthopnea, and PND. He denies any bleeding issues; no blood in urine, stool or nosebleeds. He denies any decrease in energy level, myalgias, or claudication. He denies edema, or sudden weight gain. He denies dizziness, lightheadedness, syncopal or near syncopal episodes, and headaches. His ICD interrogation today did demonstrate 8 seconds of atrial fibrillation. Intake Vital Signs 05/18/24 09:31 01/18/25 09:45 Height 5 ft 11 in 5 ft 11 in Weight: 238 lb BMI 33.2 BP 142/81 H Blood Pressure Location Lt brachial Position Sitting Respiration 18 Pulse 76 Pulse Source NIBP Intake Visit Reasons: 8 M FU DRUM WORKER-D f/u @ 9am Drosser Required: No Is patient in pain?: No Allergies No Known Allergies Allergy (Verified 01/18/25 09:46) Medications ???Medication ???Instructions ???Recorded ???Confirmed ???Type allopurinol 300 mg tablet 300 mg PO DAILY kidney stone 07/1701/18/25 History prevention amlodipine 10 mg tablet 10 mg PO DAILY blood pressure 06/2001/18/25 History aspirin 81 mg chewable tablet 81 mg PO DAILY@0800 heart health 0 07/17/14 01/18/25 History glimepiride 4 mg tablet 4 mg PO DAILY diabetes 11/06/17 History linagliptin 5 mg tablet 5 mg PO DAILY diabetes 11/06/17 History furosemide 20 mg tablet 20 mg PO QDAY 02/23/18 01/18/25 Hi story potassium chloride 20 mEq 20 meq PO QDAY 02/23/18 01/18/25 H istory tablet,extended release hydrocodone-acetaminoph en 5-325mg 1 tab PO Q6H PRN Pain 10/06/19 History 5mg-325mg icosapent ethyl 1 gram capsule 2 g (2 x 1 gram) PO BID 90 days 01/18/25 Rx (Vascepa) #360 caps lisinopril 40 mg tablet 40 mg PO DAILY #90 tabs 11/26/21 0 01/18/25 Rx insulin aspart U-100 100 unit/mL 20 unit subcut TID 14 days #8.4 mL 09/30/22 01/18/25 History (3 mL) subcutaneous pen dapagliflozin propanediol 10 mg 10 mg PO DAILY 03/30/23 01/18/25 H istory tablet (Farxiga) carvedilol 25 mg tablet 25 mg PO BID for blood pressure 01/18/25 Rx #180 TABLETS semaglutide 1 mg/dose (4 mg/3 mL) 1 mg subcut QWEEK 05/18/24 History subcutaneous pen injector (Ozempic) insulin glargine 100 unit/mL (3 30 unit subcut QPM 01/18/25 History mL) subcutaneous pen, sensor (Basaglar Tempo Pen (U-100) Insulin) Ejection fraction %: 50 Have you fallen in the past year?: No PFSH Medical History (Updated 01/18/25 @ 10:06 by Greer WARREN, PA) PAF (paroxysmal atrial fibrillation) Chronic diastolic heart failure Pure hypercholesterolemia Essential hypertension Kidney stone Nonrheumatic tricuspid valve regurgitation Nonrheumatic mitral valve regurgitation Acute renal failure Right ureteral calculus MERLY (obstructive sleep apnea) Gout Type 2 diabetes mellitus Biventricular implantable cardioverter-defibrilla tor (ICD) in situ ( 08/2007) Dilated cardiomyopathy Family History Father Myocardial infarction, Onset Age: 68 Social History Smoking Status: Former smoker alcohol intake: never ROS Const Const: Negative for fatigue or weakness Eyes Eyes: Negative for change in vision ENT ENT: Negative for dizziness or balance problems Cardio Chest Pain: No Palpitations: No Edema: Left (Occasionally from old injury) and None Resp Respiratory: Negative for SOB with activity, SOB at rest or SOB orthopnea SOB lying down GI GI: Negative nausea or heartburn Musc Musc: Negative for balance problems Neuro Neuro: Negative for dizziness, lightheadedness, near syncope, syncope or weakness Endo Endo: Negative for fatigue Cardiology Exam Const Appearance: cooperative, healthy appearing, comfortable, no acute distress, well developed and well groomed Nutritional Appearance: well nourished and obese Orientation: alert, awake a (more content not included)... Normal [facility] Pacemaker Checkon 01-18-2025 Pacemaker Check [facility] [address] [place], [place] [address]nilo. [address] [place], [place] [address] Pacemaker Check Date of Service: 01/18/25 1237 MR#: [id number] Acct: [id number] Name: ARVINDCAMILOJAI BOSS Rep #: [id number] : 1945 From: Yamel Alvarez Age/Sex: 79/M Location[place] [facility] [place] Status: Signed Billing Codes ICD Device Billin ICD Dev Prog Eval, Multi Assessment and Plan Assessment and Plan (1) Biventricular implantable cardioverter-defibrilla tor (ICD) in situ: Status: Chronic (2) Dilated cardiomyopathy: Status: Chronic (3) PAF (paroxysmal atrial fibrillation): Status: Acute 01/18/25 1240 Date Yamel Alvarez Cosigner Signature: Date (if applicable) CC: Normal [facility] BNP,B-Type NATRIURETIC PEPTI Apolonia 11-10-2024 Natriuretic peptide B (Bld) [Mass/Vol] 110.1 pg/mL High 0-100 [facility] Comment on above: Performed By: #### L [id number] #### [facility] [address] [place], [address] CBC W/Diff, Automatedon 10-19 Absolute Lymph 1.28 X10 3/uL Normal 0.83-4.51 [facility] Comment on above: Order Comment: Order Date: 11/10/24 Order Info: 0184-1 - CBCD Performed By: #### L 100.0100, L300.8000, L500.4050 #### [facility] [address] [place], [address] Absolute Neut 9.4 X10 3/uL High 2.0-7.7 [facility] Comment on above: Order Comment: Order Date: 11/10/24 Order Info: 0184-1 - CBCD Performed By: #### L 100.0100, L300.8000, L500.4050 #### [facility] [address] [place], [address] Basophils/100 WBC (Bld) 0.8 % Normal 0-1 [facility] Comment on above: Order Comment: Order Date: 11/10/24 Order Info: 0184-1 - CBCD Performed By: #### L 100.0100, L300.8000, L500.4050 #### [facility] [address] [place], [address] Eosinophils/100 WBC (Bld) 1.7 % Normal 0-5 [facility] Comment on above: Order Comment: Order Date: 11/10/24 Order Info: 0184-1 - CBCD Performed By: #### L 100.0100, L300.8000, [id number] #### [facility] [address] [place], [address] Erythrocyte distribution width (RBC) [Ratio] 13.4 % Normal 11.6-14.6 [facility] Comment on above: Order Comment: Order Date: 11/10/24 Order Info: 0184-1 - CBCD Performed By: #### L 100.0100, L300.8000, L500.4050 #### [facility] [address] [place], [address] Hematocrit (Bld) [Volume fraction] 47.4 % Normal 40-54 [facility] Comment on above: Order Comment: Order Date: 11/10/24 Order Info: 0184-1 - CBCD Performed By: #### L 100.0100, L300.8000, L500.4050 #### [facility] [address] [place], [address] Hemoglobin (Bld) [Mass/Vol] 14.8 g/dL Normal 13.0-16.5 [facility] Comment on above: Order Comment: Order Date: 11/10/24 Order Info: 0184-1 - CBCD Performed By: #### L 100.0100, L300.8000, [id number] #### [facility] [address] [place], [address] IG% 1.900 High 0.0-0.9 [facility] Comment on above: Order Comment: Order Date: 11/10/24 Order Info: 0184-1 - CBCD Result Comment: IG% - Immature Granulocytes (promyelocytes, myelocytes and metamyelocytes) > 1% indicates that a LEFT SHIFT is Present. Performed By: #### L 100.0100, L300.8000, L500.4050 #### [facility] [address] [place], [address] Lymphocytes/100 WBC (Bld) 10.8 % Low 19-41 [facility] Comment on above: Order Comment: Order Date: 11/10/24 Order Info: 0184-1 - CBCD Performed By: #### L 100.0100, L300.8000, [id number] #### [facility] [address] [place], [address] MCH (RBC) [Entitic mass] 30.1 pg Normal 27.0-32.0 [facility] Comment on above: Order Comment: Order Date: 11/10/24 Order Info: 0184-1 - CBCD Performed By: #### L 100.0100, L300.8000, [id number] #### [facility] [address] [place], [address] MCHC (RBC) [Mass/Vol] 31.2 g/dL Low 32-36 [facility] Comment on above: Order Comment: Order Date: 11/10/24 Order Info: 0184-1 - CBCD Performed By: #### L 100.0100, L300.8000, L500.4050 #### [facility] [address] [place], [address] MCV (RBC) [Entitic vol] 96.5 fL High 80-94 [facility] Comment on above: Order Comment: Order Date: 11/10/24 Order Info: 0184-1 - CBCD Performed By: #### L 100.0100, L300.8000, L500.4050 #### [facility] [address] [place], [address] Monocytes/100 WBC (Bld) 6.1 % Normal 0-10 [facility] Comment on above: Order Comment: Order Date: 11/10/24 Order Info: 0184-1 - CBCD Performed By: #### L 100.0100, L300.8000, L500.4050 #### [facility] [address] [place], [address] Neutrophils/100 WBC (Bld) 78.7 % High 47-70 [facility] Comment on above: Order Comment: Order Date: 11/10/24 Order Info: 0184-1 - CBCD Performed By: #### L 100.0100, L300.8000, L500.4050 #### [facility] [address] [place], [address] Nucleated RBC (Bld) [#/Vol] 0 10*3/uL Normal 0-5 [facility] Comment on above: Order Comment: Order Date: 11/10/24 Order Info: 0184-1 - CBCD Performed By: #### L 100.0100, L300.8000, L500.4050 #### [facility] [address] [place], [address] Platelet mean volume (Bld) [Entitic vol] 10.5 fL Normal 6.2-12.0 [facility] Comment on above: Order Comment: Order Date: 11/10/24 Order Info: 0184-1 - CBCD Performed By: #### L 100.0100, L300.8000, L500.4050 #### [facility] [address] [place], [address] Platelets (Bld) [#/Vol] 219 10*3/uL Normal 150-450 [facility] Comment on above: Order Comment: Order Date: 11/10/24 Order Info: 0184-1 - CBCD Performed By: #### L 100.0100, L300.8000, L500.4050 #### [facility] [address] [place], [address] RBC (Bld) [#/Vol] 4.91 10*6/uL Normal 4.6-6.2 [facility] Comment on above: Order Comment: Order Date: 11/10/24 Order Info: 0184-1 - CBCD Performed By: #### L 100.0100, L300.8000, L500.4050 #### [facility] [address] [place], [address] RDW SD 47.7 fl High 35.1-43.9 [facility] Comment on above: Order Comment: Order Date: 11/10/24 Order Info: 0184-1 - CBCD Performed By: #### L 100.0100, L300.8000, L500.4050 #### [facility] [address] [place], [address] WBC (Bld) [#/Vol] 11.9 10*3/uL High 4.4-11.0 [facility] Comment on above: Order Comment: Order Date: 11/10/24 Order Info: 0184-1 - CBCD Performed By: #### L 100.0100, L300.8000, L500.4050 #### [facility] [address] [place], [address] Comprehensive Metabolic Prof ilon 11-10-2024 Albumin [Mass/Vol] 3.5 g/dL Normal 3.2-5.0 [facility] Comment on above: Order Comment: Order Date: 11/10/24Order Info: 0786-1 - CMP Performed By: #### L 100.0100, L300.8000, L500.4050 ####[facility] [address] [place], [address] Albumin/Globulin [Mass ratio] 1.0 {ratio} Normal 0.9-2.4 [facility] Comment on above: Order Comment: Order Date: 11/10/24Order Info: 0786-1 - CMP Performed By: #### L 100.0100, L300.8000, L500.4050 ####[facility] [address] [place], [address] ALK P 86 U/L Normal 45-117 [facility] Comment on above: Order Comment: Order Date: 11/10/24Order Info: 0786-1 - CMP Performed By: #### L 100.0100, L300.8000, L500.4050 ####[facility] [address] [place], [address] ALT [Catalytic activity/Vol] 27 U/L Normal 16-61 [facility] Comment on above: Order Comment: Order Date: 11/10/24Order Info: 0786-1 - CMP Performed By: #### L 100.0100, L300.8000, L500.4050 ####[facility] [address] [place], [address] AST [Catalytic activity/Vol] 13 U/L Low 15-37 [facility] Comment on above: Order Comment: Order Date: 11/10/24Order Info: 0786-1 - CMP Performed By: #### L 100.0100, L300.8000, L500.4050 ####[facility] [address] [place], [address] Bilirubin [Mass/Vol] 0.80 mg/dL Normal 0.20-1.00 [facility] Comment on above: Order Comment: Order Date: 11/10/24Order Info: 0786-1 - CMP Result Comment: For patients on eltrombopag therapy, use of Dimension [place] TBIL is not recommended. Performed By: #### L 100.0100, L300.8000, L500.4050 ####[facility] [address] [place], [address] BUN/CRE 15.1 RATIO Normal 10-20 [facility] Comment on above: Order Comment: Order Date: 11/10/24Order Info: 0786-1 - CMP Performed By: #### L 100.0100, L300.8000, L500.4050 ####[facility] [address] [place], [address] CA,Total 9.6 mg/dL Normal 8.5-10.1 [facility] Comment on above: Order Comment: Order Date: 11/10/24Order Info: 0786-1 - CMP Performed By: #### L 100.0100, L300.8000, L500.4050 ####[facility] [address] [place], [address] Chloride [Moles/Vol] 110 mmol/L High 98-107 [facility] Comment on above: Order Comment: Order Date: 11/10/24Order Info: 0786-1 - CMP Performed By: #### L 100.0100, L300.8000, L500.4050 ####[facility] [address] [place], [address] CO2 [Moles/Vol] 22.0 mmol/L Normal 21.0-32.0 [facility] Comment on above: Order Comment: Order Date: 11/10/24Order Info: 0786-1 - CMP Performed By: #### L 100.0100, L300.8000, L500.4050 ####[facility] [address] [place], [address] Creatinine [Mass/Vol] 1.59 mg/dL High 0.70-1.30 [facility] Comment on above: Order Comment: Order Date: 11/10/24Order Info: 0786-1 - CMP Result Comment: The validity of the calculated GFR GFRAA in patients over 70 years has not been determined. Clinical correlation is essential. Performed By: #### L 100.0100, L300.8000, L500.4050 ####[facility] [address] [place], [address] EST GFR - AA 54 mL/min Low >60 [facility] Comment on above: Order Comment: Order Date: 11/10/24Order Info: 0786-1 - CMP Result Comment: Afri can [place] GFR Calc Performed By: #### L 100.0100, L300.8000, L500.4050 ####[facility] [address] [place], [address] GAP 7 Normal 5-15 [facility] Comment on above: Order Comment: Order Date: 11/10/24Order Info: 0786-1 - CMP Performed By: #### L 100.0100, L300.8000, L500.4050 ####[facility] [address] [place], [address] GFR/1.73 sq M.predicted among non-blacks MDRD (S/P/Bld) [Vol rate/Area] 45 mL/min/{1.73_m2} Low >60 [facility] Comment on above: Order Comment: Order Date: 11/10/24Order Info: 0786-1 - CMP Result Comment: Non- GFR Calc Performed By: #### L 100.0100, L300.8000, L500.4050 ####[facility] [address] [place], [address] Globulin (S) [Mass/Vol] 3.4 g/dL Normal 2.2-4.2 [facility] Comment on above: Order Comment: Order Date: 11/10/24Order Info: 0786-1 - CMP Performed By: #### L 100.0100, L300.8000, L500.4050 ####[facility] [address] [place], [address] Glucose [Mass/Vol] 57 mg/dL Low 74-106 [facility] Comment on above: Order Comment: Order Date: 11/10/24Order Info: 0786-1 - CMP Performed By: #### L 100.0100, L300.8000, L500.4050 ####[facility] [address] [place], [address] Potassium [Moles/Vol] 4.6 mmol/L Normal 3.5-5.1 [facility] Comment on above: Order Comment: Order Date: 11/10/24Order Info: 0786-1 - CMP Performed By: #### L 100.0100, L300.8000, L500.4050 ####[facility] [address] [place], [address] Sodium [Moles/Vol] 139 mmol/L Normal 136-145 [facility] Comment on above: Order Comment: Order Date: 11/10/24Order Info: 0786-1 - CMP Performed By: #### L 100.0100, L300.8000, L500.4050 ####[facility] [address] [place], [address] T PROT 6.9 g/dL Normal 6.4-8.2 [facility] Comment on above: Order Comment: Order Date: 11/10/24Order Info: 0786-1 - CMP Performed By: #### L 100.0100, L300.8000, L500.4050 ####[facility] [address] [place], [address] Urea nitrogen [Mass/Vol] 24 mg/dL High 7-18 [facility] Comment on above: Order Comment: Order Date: 11/10/24Order Info: 0786-1 - CMP Performed By: #### L 100.0100, L300.8000, L500.4050 ####[facility] [address] [place], [address] D-Dimer Quantitative (DVT/PE )on 11-10-2024 D-DIMER QUANT 0.46 FEU/ug/m Normal 0.27-0.49 [facility] Comment on above: Order Comment: Order Date: 11/10/24Order Info: [id number] - DDIMQ Result Comment: NORM AL D-Dimer level (<0.50) indicates no DVT or PE. Performed By: #### L 100.0100, L300.8000, L500.4050 ####[facility] [address] [place], [address] CBC-Complete Blood Cnt No Di ffon 07-13-2024 Erythrocyte distribution width (RBC) [Ratio] 13.9 % Normal 11.6-14.6 [facility] Comment on above: Order Comment: Order Date: 07/13/24Order Info: [id number] - CBC Performed By: #### L 503.6150, L100.0500, L506.1000, L509.1000 ####[facility] [address] [place], [address] Hematocrit (Bld) [Volume fraction] 46.4 % Normal 40-54 [facility] Comment on above: Order Comment: Order Date: 07/13/24Order Info: [id number] - CBC Performed By: #### L 503.6150, L100.0500, L506.1000, L509.1000 ####[facility] [address] [place], [address] Hemoglobin (Bld) [Mass/Vol] 14.4 g/dL Normal 13.0-16.5 [facility] Comment on above: Order Comment: Order Date: 07/13/24Order Info: [id number] - CBC Performed By: #### L 503.6150, L100.0500, L506.1000, L509.1000 ####[facility] [address] [place], [address] MCH (RBC) [Entitic mass] 30.0 pg Normal 27.0-32.0 [facility] Comment on above: Order Comment: Order Date: 07/13/24Order Info: [id number] - CBC Performed By: #### L 503.6150, L100.0500, L506.1000, L509.1000 ####[facility] [address] [place], [address] MCHC (RBC) [Mass/Vol] 31.0 g/dL Low 32-36 [facility] Comment on above: Order Comment: Order Date: 07/13/24Order Info: [id number] - CBC Performed By: #### L 503.6150, L100.0500, L506.1000, L509.1000 ####[facility] [address] [place], [address] MCV (RBC) [Entitic vol] 96.7 fL High 80-94 [facility] Comment on above: Order Comment: Order Date: 07/13/24Order Info: [id number] - CBC Performed By: #### L 503.6150, L100.0500, L506.1000, L509.1000 ####[facility] [address] [place], [address] Platelet mean volume (Bld) [Entitic vol] 10.6 fL Normal 6.2-12.0 [facility] Comment on above: Order Comment: Order Date: 07/13/24Order Info: [id number] - CBC Performed By: #### L 503.6150, L100.0500, L506.1000, L509.1000 ####[facility] [address] [place], [address] Platelets (Bld) [#/Vol] 265 10*3/uL Normal 150-450 [facility] Comment on above: Order Comment: Order Date: 07/13/24Order Info: [id number] - CBC Performed By: #### L 503.6150, L100.0500, L506.1000, L509.1000 ####[facility] [address] [place], [address] RBC (Bld) [#/Vol] 4.80 10*6/uL Normal 4.6-6.2 [facility] Comment on above: Order Comment: Order Date: 07/13/24Order Info: [id number] - CBC Performed By: #### L 503.6150, L100.0500, L506.1000, L509.1000 ####[facility] [address] [place], [address] RDW SD 48.7 fl High 35.1-43.9 [facility] Comment on above: Order Comment: Order Date: 07/13/24Order Info: [id number] - CBC Performed By: #### L 503.6150, L100.0500, L506.1000, L509.1000 ####[facility] [address] [place], [address] WBC (Bld) [#/Vol] 13.4 10*3/uL High 4.4-11.0 [facility] Comment on above: Order Comment: Order Date: 07/13/24Order Info: [id number] - CBC Performed By: #### L 503.6150, L100.0500, L506.1000, L509.1000 ####[facility] [address] [place], [address] Comprehensive Metabolic Prof [facility] 07-13-2024 Albumin [Mass/Vol] 3.6 g/dL Normal 3.2-5.0 [facility] Comment on above: Performed By: #### L 503.0105, L500.4050, L501.9520, L500.4100 #### [facility] [address] [place], [address] Albumin/Globulin [Mass ratio] 1.0 {ratio} Normal 0.9-2.4 [facility] Comment on above: Performed By: #### L 503.0105, L500.4050, L501.9520, L500.4100 #### [facility] [address] [place], [address] ALK P 108 U/L Normal 45-117 [facility] Comment on above: Performed By: #### L 503.0105, L500.4050, L501.9520, L500.4100 #### [facility] [address] [place], [address] ALT [Catalytic activity/Vol] 24 U/L Normal 16-61 [facility] Comment on above: Performed By: #### L 503.0105, L500.4050, L501.9520, L500.4100 #### [facility] [address] [place], [address] AST [Catalytic activity/Vol] 15 U/L Normal 15-37 [facility] Comment on above: Performed By: #### L 503.0105, L500.4050, L501.9520, L500.4100 #### [facility] [address] [place], [address] Bilirubin [Mass/Vol] 0.40 mg/dL Normal 0.20-1.00 [facility] Comment on above: Result Comment: For patients on eltrombopag therapy, use of Dimension [place] TBIL is not recommended. Performed By: #### L 503.0105, L500.4050, L501.9520, L500.4100 #### [facility] [address] [place], [address] BUN/CRE 17.2 RATIO Normal 10-20 [facility] Comment on above: Performed By: #### L 503.0105, L500.4050, L501.9520, L500.4100 #### [facility] [address] [place], [address] CA,Total 9.7 mg/dL Normal 8.5-10.1 [facility] Comment on above: Performed By: #### L 503.0105, L500.4050, L501.9520, L500.4100 #### [facility] [address] [place], [address] Chloride [Moles/Vol] 112 mmol/L High 98-107 [facility] Comment on above: Performed By: #### L 503.0105, L500.4050, L501.9520, L500.4100 #### [facility] [address] [place], [address] CO2 [Moles/Vol] 21.0 mmol/L Normal 21.0-32.0 [facility] Comment on above: Performed By: #### L 503.0105, L500.4050, L501.9520, L500.4100 #### [facility] [address] [place], [address] Creatinine [Mass/Vol] 1.69 mg/dL High 0.70-1.30 [facility] Comment on above: Result Comment: The validity of the calculated GFR GFRAA in patients over 70 years has not been determined. Clinical correlation is essential. Performed By: #### L 503.0105, L500.4050, L501.9520, L500.4100 #### [facility] [address] [place], [address] EST GFR - AA 51 mL/min Low >60 [facility] Comment on above: Result Comment: Afri can [place] GFR Calc Performed By: #### L 503.0105, L500.4050, L501.9520, L500.4100 #### [facility] [address] [place], [address] GAP 8 Normal 5-15 [facility] Comment on above: Performed By: #### L 503.0105, L500.4050, L501.9520, L500.4100 #### [facility] [address] [place], [address] GFR/1.73 sq M.predicted among non-blacks MDRD (S/P/Bld) [Vol rate/Area] 42 mL/min/{1.73_m2} Low >60 [facility] Comment on above: Result Comment: Non- GFR Calc Performed By: #### L 503.0105, L500.4050, L501.9520, L500.4100 #### [facility] [address] [place], [address] Globulin (S) [Mass/Vol] 3.5 g/dL Normal 2.2-4.2 [facility] Comment on above: Performed By: #### L 503.0105, L500.4050, L501.9520, L500.4100 #### [facility] [address] [place], [address] Glucose [Mass/Vol] 53 mg/dL Low 74-106 [facility] Comment on above: Performed By: #### L 503.0105, L500.4050, L501.9520, L500.4100 #### [facility] [address] [place], [address] Potassium [Moles/Vol] 4.4 mmol/L Normal 3.5-5.1 [facility] Comment on above: Performed By: #### L 503.0105, L500.4050, L501.9520, L500.4100 #### [facility] [address] [place], [address] Sodium [Moles/Vol] 140 mmol/L Normal 136-145 [facility] Comment on above: Performed By: #### L 503.0105, L500.4050, L501.9520, L500.4100 #### [facility] [address] [place], [address] T PROT 7.1 g/dL Normal 6.4-8.2 [facility] Comment on above: Performed By: #### L 503.0105, L500.4050, L501.9520, L500.4100 #### [facility] [address] [place], [address] Urea nitrogen [Mass/Vol] 29 mg/dL High 7-18 [facility] Comment on above: Performed By: #### L 503.0105, L500.4050, L501.9520, L500.4100 #### [facility] [address] [place], [address] Ironon 07-13-2024 Iron [Mass/Vol] 62 ug/dL Low 65-175 [facility] Comment on above: Order Comment: Order Date: 07/13/24Order Info: [id number] - FE Performed By: #### L 503.6150, L100.0500, L506.1000, L509.1000 ####[facility] [address] [place], [address] Lipid Profileon 07-13-2024 Cholesterol [Mass/Vol] 130 mg/dL Normal 200 [facility] Comment on above: Result Comment: <200 mg/dL Desirable 200-240 mg/dL Borderline >240 mg/dL High Risk Performed By: #### L 503.0105, L500.4050, L501.9520, L500.4100 #### [facility] [address] [place], [address] Cholesterol in HDL [Mass/Vol] 33 mg/dL Low [facility] Comment on above: Result Comment: The drugs N-Acetylcysteine and Metamizole may falsely depress this assay. Reference Range HDL <40 mg/dL Low HDL Cholesterol HDL >or= 60 mg/dL High HDL Cholesterol Performed By: #### L 503.0105, L500.4050, L501.9520, L500.4100 #### [facility] [address] [place], [address] Cholesterol in LDL [Mass/Vol] 69 mg/dL Normal 0-130 [facility] Comment on above: Performed By: #### L 503.0105, L500.4050, L501.9520, L500.4100 #### [facility] [address] [place], [address] Cholesterol in VLDL [Mass/Vol] 28 mg/dL Normal 5-40 [facility] Comment on above: Performed By: #### L 503.0105, L500.4050, L501.9520, L500.4100 #### [facility] [address] [place], [address] Triglyceride [Mass/Vol] 142 mg/dL Normal [facility] Comment on above: Result Comment: The drugs N-Acetylcysteine and Metamizole may falsely depress this assay. Serum Triglycerides Reference Interval Normal <150 mg/dL Borderline high 150 - 199 mg/dL High 200 - 499 mg/dL Very High > or = 500 mg/dL Performed By: #### L 503.0105, L500.4050, L501.9520, L500.4100 #### [facility] [address] [place], [address] PTHINon 07-13-2024 PTH 104.5 pg/mL High 18.4-80.1 [facility] Comment on above: Order Comment: Order Date: 07/13/24Order Info: [id number] - PTHIN Performed By: #### L 503.6150, L100.0500, L506.1000, L509.1000 ####[facility] [address] [place], [address] Thyroid Stim Hormone (TSH)on 07-13-2024 TSH 3.430 uIU/mL Normal 0.358-3.740 [facility] Comment on above: Performed By: #### L 503.0105, L500.4050, L501.9520, L500.4100 #### [facility] [address] [place], [address] Vitamin B12on 07-13-2024 Cobalamin (Vitamin B12) [Mass/Vol] 275 pg/mL Normal 211-911 [facility] Comment on above: Performed By: #### L 503.0105, L500.4050, L501.9520, L500.4100 #### [facility] [address] [place], [address] Vitamin D,25 Hydroxyon 07-13 Vitamin D 25-OH 35.2 ng/mL Normal [facility] Comment on above: Order Comment: Order Date: 07/13/24Order Info: [id number] - VITD25 Result Comment: Kianna min D 25(OH) Status Range Deficiency <20 ng/mL (50nmol/L) Insufficiency 20 - 30 ng/mL (50 - 75 nmol/L) Sufficiency 30 - 100 ng/mL (75 - 250 nmol/L) Toxicity >100 ng/mL (>250 nmol/L) Performed By: #### L 503.6150, L100.0500, L506.1000, L509.1000 ####[facility] [address] [place], [address] Cardiology Visit Reporton Cardiology Visit Report [facility] [address] [place] [address] OFFICE VISIT Date of Service: 05/18/24 MR#: [id number] Acct: [id number] Name: CAMILO HALE Rep #: [id number] : 1945 Provider: Dr. Adrien Kat MD Age/Sex: 78/M Location: [facility] Status: Signed HPI HPI History of Present Illness Details: CAMILO HALE, is a 78 year old white male who presents to the office today for a cardiovascular outpatient follow-up visit. 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 He underwent a generator change in October of this year. From a cardiac standpoint, the patient is doing well. He denies any palpitations, or chest pain. He denies SOB, Orthopnea, and PND. He denies any bleeding issues; no blood in urine, stool or nosebleeds. He denies any decrease in energy level, myalgias, or claudication. He denies edema, or sudden weight gain. He denies dizziness, lightheadedness, syncopal or near syncopal episodes, and headaches. Intake Vital Signs 03/30/23 09:05 09/28/23 08:30 05/18/24 09:31 Height 5 ft 11 in 5 ft 11 in 5 ft 11 in Weight: 244 lb BMI 34.0 BP 135/70 H Blood Pressure Location Lt brachial Position Sitting Respiration 16 Pulse 73 Pulse Source Monitor Intake Visit Reasons: 1 Y FU / PARK @ 9:30 Drosser Required: No Accompanied by: Self Is patient in pain?: No Allergies No Known Allergies Allergy (Verified 05/18/24 09:52) Medications ???Medication ???Instructions ???Recorded ???Confirmed ???Type allopurinol 300 mg tablet 300 mg PO DAILY kidney stone 07/17/14 05/18/24 History prevention amlodipine 10 mg tablet 10 mg PO DAILY blood pressure 07/17/14 05/18/24 History aspirin 81 mg chewable tablet 81 mg PO DAILY@0800 heart health 07/17/14 05/18/24 History glimepiride 4 mg tablet 4 mg PO DAILY diabetes 11/06/17 05/18/24 History linagliptin 5 mg tablet 5 mg PO DAILY diabetes 11/06/17 05/18/24 History furosemide 20 mg tablet 20 mg PO QDAY 02/23/18 05/18/24 History potassium chloride 20 mEq 20 meq PO QDAY 02/23/18 05/18/24 History tablet,extended release hydrocodone-acetaminoph en 5-325mg 1 tab PO Q6H PRN Pain 10/06/19 05/18/24 History 5mg-325mg icosapent ethyl 1 gram capsule 2 g (2 x 1 gram) PO BID 90 days 05/23/21 05/18/24 Rx (Vascepa) #360 caps lisinopril 40 mg tablet 40 mg PO DAILY #90 tabs 11/26/21 05/18/24 Rx insulin aspart U-100 100 unit/mL 20 unit subcut TID 14 days #8.4 mL 09/30/22 05/18/24 History (3 mL) subcutaneous pen insulin detemir U-100 100 unit/mL 70 unit subcut QPM 09/30/22 05/18/24 History subcutaneous solution (Levemir U-100 Insulin) dapagliflozin propanediol 10 mg 10 mg PO DAILY 03/30/23 05/18/24 History tablet (Farxiga) carvedilol 25 mg tablet 25 mg PO BID for blood pressure 05/12/24 05/18/24 Rx #180 TABLETS semaglutide 1 mg/dose (4 mg/3 mL) 1 mg subcut QWEEK 05/18/24 05/18/24 History subcutaneous pen injector (Ozempic) Have you fallen in the past year?: No PFSH Medical History Chronic diastolic heart failure Pure hypercholesterolemia Essential hypertension Kidney stone Nonrheumatic tricuspid valve regurgitation Nonrheumatic mitral valve regurgitation Acute renal failure Right ureteral calculus MERLY (obstructive sleep apnea) Gout Type 2 diabetes mellitus Biventricular implantable cardioverter-defibrilla tor (ICD) in situ ( 08/2007) Dilated cardiomyopathy Family History Father Myocardial infarction, Onset Age: 68 Social History Smoking Status: Former smoker alcohol intake: never ROS Const Const: Negative for fatigue, weakness, headache(s), daytime sleepiness or difficulty sleeping ENT ENT: Negative for headache(s), dizziness or Nosebleed/epistaxis Cardio Chest Pain: No Palpitations: No Edema: Left (trace at times) Resp Respiratory: Negative for SOB with activity, SOB at rest, SOB orthopnea SOB lying down or Cough GI GI: Negative nausea, vomiting or heartburn Neuro Neuro: Negative for dizziness, lightheadedness, near syncope, headache(s) or weakness Endo Endo: Negative for fatigue Cardiology Exam Const Appearance: cooperative, healthy appearing, comfortable, no acute distress, well developed and well groomed Nutritional Appearance: well nourished and obese Orientation: alert, awake and oriented x3 Head Head: normal to inspection Ears: hearing grossly normal bilaterally Nose: external nose normal Face and Sinus: face symmetric Eyes Eyelids: eye (more content not included)... Normal [facility] Pacemaker Checkon 05-18-2024 Pacemaker Check [facility] [address] [place] [address] Pacemaker Check Date of Service: 05/18/24 1603 MR#: [id number] Acct: [id number] Name: CAMILO HALE Rep #: [id number] : 1945 From: Yamel Alvarez Age/Sex: 78/M [place] [facility] [place] Status: Signed Billing Codes ICD Device Billing: ICD Dev Prog Eval, Multi Assessment and Plan Assessment and Plan (1) Biventricular implantable cardioverter-defibrilla tor (ICD) in situ: Status: Chronic (2) Dilated cardiomyopathy: Status: Chronic 05/18/24 1604 Date Yamel Alvarez Cosigner Signature: Date (if applicable) CC: Normal [facility] Basophil percentageOrdered B y: Allen Jones on 11-04-2023 Chloride [Moles/Vol] 109 mmol/L 98-107 [facility] Glucose [Mass/Vol] 146 mg/dL 74-106 [facility] Comment on above: Fasting Glucose resu lt greater than or equal to 126 mg/dL suggests DIABETES MELLITUS per A.D.A. criteria. Potassium [Moles/Vol] 4.6 mmol/L 3.5-5.1 [facility] Sodium [Moles/Vol] 137 mmol/L 136-145 [facility] Laboratory - Chemistry and C hemistry - challengeOrdered By: Allen Jones on 11-04-2023 CO2 [Moles/Vol] 21.0 mmol/L 21.0-32.0 [facility] Urea nitrogen/Creatinine [Mass ratio] 16.0 mg/mg 10- [facility] No Panel InformationOrdered By: Allen Jones on 11-04-2023 Estimated GFR (MDRD) Amer 47 mL/min >60 [facility] Comment on above: GFR Calc Estimated GFR (MDRD) Non-Af Amer 39 mL/min >60 [facility] Comment on above: Non- GFR Calc Serum or plasma calcium zenaida urement (mass/volume)Ordered By: Allen Jones on 11-04-2023 Calcium [Mass/Vol] 10.1 mg/dL 8.5-10.1 [facility] Serum or plasma creatinine m easurement (mass/volume)Ordered By: Allen Jones on 11-04-2023 Creatinine [Mass/Vol] 1.81 mg/dL 0.70-1.30 [facility] Comment on above: The validity of the calculated GFR & GFRAA in patients over 70 years has not been determined. Clinical correlation is essential. Serum or plasma urea nitroge n measurement (mass/volume)Ordered By: Allen Jones on 11-04-2023 Urea nitrogen [Mass/Vol] 29 mg/dL 05-04 [facility] Thin prep Papanicolaou smear with manual screeningOrdered By: Allen Jones on 11-04-2023 Thin prep Papanicolaou smear with manual screening 7 - [facility] Basophil percentageOrdered B y: Allen Jones on 08-05-2023 Chloride [Moles/Vol] 110 mmol/L 98-107 [facility] Glucose [Mass/Vol] 172 mg/dL 74-106 [facility] Comment on above: Fasting Glucose resu lt greater than or equal to 126 mg/dL suggests DIABETES MELLITUS per A.D.A. criteria. Potassium [Moles/Vol] 4.0 mmol/L 3.5-5.1 [facility] Sodium [Moles/Vol] 139 mmol/L 136-145 [facility] Laboratory - Chemistry and C hemistry - challengeOrdered By: Allen Jones on 08-05-2023 CO2 [Moles/Vol] 21.0 mmol/L 21.0-32.0 [facility] Urea nitrogen/Creatinine [Mass ratio] 15.1 mg/mg - [facility] No Panel InformationOrdered By: Allen Jones on 08-05-2023 Estimated GFR (MDRD) Amer 44 mL/min >60 [facility] Comment on above: GFR Calc Estimated GFR (MDRD) Non-Af Amer 36 mL/min >60 [facility] Comment on above: Non- GFR Calc Serum or plasma calcium zenaida urement (mass/volume)Ordered By: Allen Jones on 08-05-2023 Calcium [Mass/Vol] 9.3 mg/dL 8.5-10.1 [facility] Serum or plasma creatinine m easurement (mass/volume)Ordered By: Allen Jones on 08-05-2023 Creatinine [Mass/Vol] 1.92 mg/dL 0.70-1.30 [facility] Comment on above: The validity of the calculated GFR & GFRAA in patients over 70 years has not been determined. Clinical correlation is essential. Serum or plasma urea nitroge n measurement (mass/volume)Ordered By: Allen Jones on 08-05-2023 Urea nitrogen [Mass/Vol] 29 mg/dL 7-18 [facility] Thin prep Papanicolaou smear with manual screeningOrdered By: Allen Jones on 08-05-2023 Thin prep Papanicolaou smear with manual screening 8 5-15 [facility] Basophil percentageOrdered B y: Allen Jones on 07-01-2023 Chloride [Moles/Vol] 108 mmol/L 98-107 [facility] Glucose [Mass/Vol] 164 mg/dL 74-106 [facility] Comment on above: Fasting Glucose resu lt greater than or equal to 126 mg/dL suggests DIABETES MELLITUS per A.D.A. criteria. Potassium [Moles/Vol] 4.4 mmol/L 3.5-5.1 [facility] Sodium [Moles/Vol] 137 mmol/L 136-145 [facility] Laboratory - Chemistry and C hemistry - challengeOrdered By: Allen Jones on 07-01-2023 CO2 [Moles/Vol] 23.0 mmol/L 21.0-32.0 [facility] Urea nitrogen/Creatinine [Mass ratio] 16.9 mg/mg 10-20 [facility] No Panel InformationOrdered By: Allen Jones on 07-01-2023 Estimated GFR (MDRD) Amer 42 mL/min >60 [facility] Comment on above: GFR Calc Estimated GFR (MDRD) Non-Af Amer 34 mL/min >60 [facility] Comment on above: Non- GFR Calc Serum or plasma calcium zenaida urement (mass/volume)Ordered By: Allen Jones on 07-01-2023 Calcium [Mass/Vol] 9.4 mg/dL 8.5-10.1 [facility] Serum or plasma creatinine m easurement (mass/volume)Ordered By: Allen Jones on 07-01-2023 Creatinine [Mass/Vol] 2.01 mg/dL 0.70-1.30 [facility] Comment on above: The validity of the calculated GFR & GFRAA in patients over 70 years has not been determined. Clinical correlation is essential. Serum or plasma urea nitroge n measurement (mass/volume)Ordered By: Allen Jones on 07-01-2023 Urea nitrogen [Mass/Vol] 34 mg/dL 7-18 [facility] Thin prep Papanicolaou smear with manual screeningOrdered By: Allen Jones on 07-01-2023 Thin prep Papanicolaou smear with manual screening 6 5-15 [facility] Thin prep Papanicolaou smear with manual screening 60.0 mg/L NO RANGE EST. [facility] Absolute lymphocyte countOrd ered By: Allen Jones on 04-01-2023 Lymphocytes Auto (Unsp spec) [#/Vol] 2.13 10*3/uL 0.83-4.51 [facility] Basophil percentageOrdered B y: Allen Jones on 04-01-2023 Basophils/100 WBC (Bld) 0.8 % 0-1 [facility] Chloride [Moles/Vol] 113 mmol/L 98-107 [facility] Eosinophils/100 WBC (Bld) 3.1 % 0-5 [facility] Glucose [Mass/Vol] 125 mg/dL 74-106 [facility] Comment on above: Fasting Glucose resu lt from 100 to 125 mg/dL suggests IMPAIRED HOMEOSTASIS per A.D.A. criteria. Neutrophils (Bld) [#/Vol] 7.0 10*3/uL 2.0-7.7 [facility] Neutrophils/100 WBC (Bld) 66.2 % 47-70 [facility] Potassium [Moles/Vol] 4.3 mmol/L 3.5-5.1 [facility] Comment on above: Slight Hemolysis, Re sult may be falsely increased. Sodium [Moles/Vol] 139 mmol/L 136-145 [facility] WBC (Bld) [#/Vol] 10.6 10*3/uL 4.4-11.0 [facility] Blood erythrocytes count (nu mber/volume)Ordered By: Allen Jones on 04-01-2023 RBC (Bld) [#/Vol] 4.86 10*6/uL 4.6-6.2 [facility] Blood hemoglobin measurement (mass/volume)Ordered By: Allen Jones on 04-01-2023 Hemoglobin (Bld) [Mass/Vol] 14.7 g/dL 13.0-16.5 [facility] Blood lymphocytes/100 leukoc ytesOrdered By: Allen Jones on 04-01-2023 Lymphocytes/100 WBC (Bld) 20.1 % 19-41 [facility] Blood monocytes/100 leukocyt esOrdered By: Allen Jones on 04-01-2023 Monocytes/100 WBC (Bld) 8.9 % 0-10 [facility] Blood platelet mean volumeOr dered By: Allen Jones on 04-01-2023 Platelet mean volume (Bld) [Entitic vol] 10.3 fL 6.2-12.0 [facility] Determination of erythrocyte mean corpuscular volume (MCV)Ordered By: Allen Jones on 04-01-2023 MCV (RBC) [Entitic vol] 95.3 fL 80-94 [facility] Hematocrit Auto (Bld) [Volum e fraction]Ordered By: Allen Jones on 04-01-2023 Hematocrit (Bld) [Volume fraction] 46.3 % 40-54 [facility] Iron measurement (mass/mass) Ordered By: Allen Jones on 04-01-2023 Iron (Unsp spec) [Mass/Mass] 70 ug/dL 65-175 [facility] Comment on above: Slight Hemolysis, Re sult may be falsely increased. Laboratory - Chemistry and C hemistry - challengeOrdered By: Allen Jones on 04-01-2023 CO2 [Moles/Vol] 21.0 mmol/L 21.0-32.0 [facility] Free T4 [Mass/Vol] 0.90 ng/dL 0.76-1.46 [facility] Urea nitrogen/Creatinine [Mass ratio] 15.9 mg/mg 10-20 [facility] Laboratory - Hematology and Cell countsOrdered By: Allen Jones on 04-01-2023 Erythrocyte distribution width (RBC) [Entitic vol] 50.4 fL 35.1-43.9 [facility] Erythrocyte distribution width (RBC) [Ratio] 14.4 % 11.6-14.6 [facility] Immature granulocytes/100 WBC (Bld) 0.900 % 0.0-0.9 [facility] Comment on above: IG% - Immature Granu locytes (promyelocytes, myelocytes and metamyelocytes) > 1% indicates that a LEFT SHIFT is Present. MCH (RBC) [Entitic mass] 30.2 pg 27.0-32.0 [facility] Nucleated RBC/100 WBC (Bld) [Ratio] 0 % 0-5 [facility] MCHC Auto (RBC) [Mass/Vol]Or dered By: Allen Jones on 04-01-2023 MCHC (RBC) [Mass/Vol] 31.7 g/dL 32-36 [facility] No Panel InformationOrdered By: Allen Jones on 04-01-2023 Estimated GFR (MDRD) Amer 47 mL/min >60 [facility] Comment on above: GFR Calc Estimated GFR (MDRD) Non-Af Amer 39 mL/min >60 [facility] Comment on above: Non- GFR Calc Parathyroid Hormone (Intact) 53.7 pg/mL 18.4-80.1 [facility] Thyroid Stimulating Hormone (TSH) 3.11 uIU/mL 0.358-3.74 [facility] Vitamin D 25-Hydroxy 80.4 ng/mL [facility] Comment on above: Vitamin D 25(OH) Sta tus Range Deficiency <20 ng/mL (50nmol/L) Insufficiency 20 - 30 ng/mL (50 - 75 nmol/L) Sufficiency 30 - 100 ng/mL (75 - 250 nmol/L) Toxicity >100 ng/mL (>250 nmol/L) Platelets bldOrdered By: Saw emmanuel Karen on 04-01-2023 Platelets (Bld) [#/Vol] 228 10*3/uL 150-450 [facility] Serum or plasma calcium zenaida urement (mass/volume)Ordered By: Allen Jones on 04-01-2023 Calcium [Mass/Vol] 9.2 mg/dL 8.5-10.1 [facility] Serum or plasma creatinine m easurement (mass/volume)Ordered By: Allen Jones on 04-01-2023 Creatinine [Mass/Vol] 1.82 mg/dL 0.70-1.30 [facility] Comment on above: The validity of the calculated GFR & GFRAA in patients over 70 years has not been determined. Clinical correlation is essential. Serum or plasma ferritin amita surement (mass/volume)Ordered By: Allen Jones on 04-01-2023 Ferritin [Mass/Vol] 54 ng/mL 26-388 [facility] Serum or plasma urea nitroge n measurement (mass/volume)Ordered By: Allen Jones on 04-01-2023 Urea nitrogen [Mass/Vol] 29 mg/dL 7-18 [facility] Thin prep Papanicolaou smear with manual screeningOrdered By: Allen Jones on 04-01-2023 Thin prep Papanicolaou smear with manual screening 5 5-15 [facility] Whole blood hemoglobin A1c/t otal hemoglobin ratio (mass fraction)Ordered By: Allen Jones on 04-01-2023 HbA1c (Bld) [Mass fraction] 7.4 % 3.8-5.6 [facility] Comment on above: Normal < 5.7 % Predi abetic 5.7 - 6.4 % Diabetic >or= 6.5 % Please note range changes. Basophil percentageOrdered B y: Dr. Hernandez on 02-05-2023 Chloride [Moles/Vol] 110 mmol/L 98-107 [facility] Glucose [Mass/Vol] 137 mg/dL 74-106 [facility] Comment on above: Fasting Glucose resu lt greater than or equal to 126 mg/dL suggests DIABETES MELLITUS per A.D.A. criteria. Potassium [Moles/Vol] 4.3 mmol/L 3.5-5.1 [facility] Sodium [Moles/Vol] 136 mmol/L 136-145 [facility] WBC (Bld) [#/Vol] 24.3 10*3/uL 4.4-11.0 [facility] Blood erythrocytes count (nu mber/volume)Ordered By: Dr. Hernandez on 02-05-2023 RBC (Bld) [#/Vol] 4.58 10*6/uL 4.6-6.2 [facility] Blood hemoglobin measurement (mass/volume)Ordered By: Dr. Hernandez on 02-05-2023 Hemoglobin (Bld) [Mass/Vol] 13.7 g/dL 13.0-16.5 [facility] Blood platelet mean volumeOr dered By: Dr. Hernandez on 02-05-2023 Platelet mean volume (Bld) [Entitic vol] 10.9 fL 6.2-12.0 [facility] Determination of erythrocyte mean corpuscular volume (MCV)Ordered By: Dr. Hernandez on 02-05-2023 MCV (RBC) [Entitic vol] 96.9 fL 80-94 [facility] Hematocrit Auto (Bld) [Volum e fraction]Ordered By: Dr. Hernandez on 02-05-2023 Hematocrit (Bld) [Volume fraction] 44.4 % 40-54 [facility] Laboratory - Chemistry and C hemistry - challengeOrdered By: Dr. Hernandez on 02-05-2023 CO2 [Moles/Vol] 19.0 mmol/L 21.0-32.0 [facility] Natriuretic peptide B (Bld) [Mass/Vol] 94.9 pg/mL 0-100 [facility] Urea nitrogen/Creatinine [Mass ratio] 16.5 mg/mg 10-20 [facility] Laboratory - Hematology and Cell countsOrdered By: Dr. Hernandez on 02-05-2023 Erythrocyte distribution width (RBC) [Entitic vol] 50.3 fL 35.1-43.9 [facility] Erythrocyte distribution width (RBC) [Ratio] 14.2 % 11.6-14.6 [facility] MCH (RBC) [Entitic mass] 29.9 pg 27.0-32.0 [facility] MCHC Auto (RBC) [Mass/Vol]Or dered By: Dr. Hernandez on 02-05-2023 MCHC (RBC) [Mass/Vol] 30.9 g/dL 32-36 [facility] No Panel InformationOrdered By: Dr. Hernandez on 02-05-2023 Estimated GFR (MDRD) Amer 32 mL/min >60 [facility] Comment on above: GFR Calc Estimated GFR (MDRD) Non-Af Amer 26 mL/min >60 [facility] Comment on above: Non- GFR Calc Platelets bldOrdered By: Dr. Hernandez on 02-05-2023 Platelets (Bld) [#/Vol] 302 10*3/uL 150-450 [facility] Serum or plasma calcium zenaida urement (mass/volume)Ordered By: Dr. Hernandez on 02-05-2023 Calcium [Mass/Vol] 9.7 mg/dL 8.5-10.1 [facility] Serum or plasma creatinine m easurement (mass/volume)Ordered By: Dr. Hernandez on 02-05-2023 Creatinine [Mass/Vol] 2.55 mg/dL 0.70-1.30 [facility] Comment on above: The validity of the calculated GFR & GFRAA in patients over 70 years has not been determined. Clinical correlation is essential. Serum or plasma urea nitroge n measurement (mass/volume)Ordered By: Dr. Hernandez on 02-05-2023 Urea nitrogen [Mass/Vol] 42 mg/dL 7-18 [facility] Thin prep Papanicolaou smear with manual screeningOrdered By: Dr. Hernandez on 02-05-2023 Thin prep Papanicolaou smear with manual screening 7 5-15 [facility] Basophil percentageOrdered B y: Dr. Maddox on 10-28-2022 Basophil percentage 0 SEEN /hpf 0-5 [facility] Chloride [Moles/Vol] 109 mmol/L 98-107 [facility] Glucose [Mass/Vol] 154 mg/dL 74-106 [facility] Comment on above: Fasting Glucose resu lt greater than or equal to 126 mg/dL suggests DIABETES MELLITUS per A.D.A. criteria. Potassium [Moles/Vol] 4.1 mmol/L 3.5-5.1 [facility] Sodium [Moles/Vol] 139 mmol/L 136-145 [facility] WBC (Bld) [#/Vol] 12.4 10*3/uL 4.4-11.0 [facility] Bilirubin Test strip Ql (U)O rdered By: Dr. Maddox on 10-28-2022 Bilirubin Ql (U) Negative Negative [facility] Blood erythrocytes count (nu mber/volume)Ordered By: Dr. Maddox on 10-28-2022 RBC (Bld) [#/Vol] 4.71 10*6/uL 4.6-6.2 [facility] Blood hemoglobin measurement (mass/volume)Ordered By: Dr. Maddox on 10-28-2022 Hemoglobin (Bld) [Mass/Vol] 14.5 g/dL 13.0-16.5 [facility] Blood platelet mean volumeOr dered By: Dr. Maddox on 10-28-2022 Platelet mean volume (Bld) [Entitic vol] 10.6 fL 6.2-12.0 [facility] Determination of erythrocyte mean corpuscular volume (MCV)Ordered By: Dr. Maddox on 10-28-2022 MCV (RBC) [Entitic vol] 94.7 fL 80-94 [facility] Hematocrit Auto (Bld) [Volum e fraction]Ordered By: Dr. Maddox on 10-28-2022 Hematocrit (Bld) [Volume fraction] 44.6 % 40-54 [facility] Hyaline casts LM.LPF (Urine sed) [#/Area]Ordered By: Dr. Maddox on 10-28-2022 Hyaline casts (Urine sed) [#/Area] 0 /[LPF] 0-5 [facility] INR in Blood by Coagulation assayOrdered By: Dr. Maddox on 10-28-2022 INR Coag (Bld) [Relative time] 1.0 {INR} [facility] Ketones Test strip Ql (U)Ord ered By: Dr. Maddox on 10-28-2022 Ketones Ql (U) Negative Negative [facility] Laboratory - Chemistry and C hemistry - challengeOrdered By: Dr. Maddox on 10-28-2022 CO2 [Moles/Vol] 22.0 mmol/L 21.0-32.0 [facility] Urea nitrogen/Creatinine [Mass ratio] 17.9 mg/mg 10-20 [facility] Laboratory - CoagulationOrde red By: Dr. Maddox on 10-28-2022 PT Coag (PPP) [Time] 13.0 s 11.7-14.9 [facility] Laboratory - Hematology and Cell countsOrdered By: Dr. Maddox on 10-28-2022 Erythrocyte distribution width (RBC) [Entitic vol] 46.9 fL 35.1-43.9 [facility] Erythrocyte distribution width (RBC) [Ratio] 13.6 % 11.6-14.6 [facility] MCH (RBC) [Entitic mass] 30.8 pg 27.0-32.0 [facility] MCHC Auto (RBC) [Mass/Vol]Or dered By: Dr. Maddox on 10-28-2022 MCHC (RBC) [Mass/Vol] 32.5 g/dL 32-36 [facility] Mucus LM Ql (Urine sed)Order ed By: Dr. Maddox on 10-28-2022 Mucus Ql (Urine sed) 0 SEEN /hpf [facility] Nitrite Test strip Ql (U)Ord ered By: Dr. Maddox on 10-28-2022 Nitrite Ql (U) Negative Negative [facility] No Panel InformationOrdered By: Dr. Maddox on 10-28-2022 Estimated GFR (MDRD) Amer 43 mL/min >60 [facility] Comment on above: GFR Calc Estimated GFR (MDRD) Non-Af Amer 36 mL/min >60 [facility] Comment on above: Non- GFR Calc Platelets bldOrdered By: Dr. Maddox on 10-28-2022 Platelets (Bld) [#/Vol] 242 10*3/uL 150-450 [facility] Protein Test strip Ql (U)Ord ered By: Dr. Maddox on 10-28-2022 Protein Ql (U) 30 mg/dl Negative [facility] Serum or plasma calcium zenaida urement (mass/volume)Ordered By: Dr. Maddox on 10-28-2022 Calcium [Mass/Vol] 9.1 mg/dL 8.5-10.1 [facility] Serum or plasma creatinine m easurement (mass/volume)Ordered By: Dr. Maddox on 10-28-2022 Creatinine [Mass/Vol] 1.95 mg/dL 0.70-1.30 [facility] Comment on above: The validity of the calculated GFR & GFRAA in patients over 70 years has not been determined. Clinical correlation is essential. Serum or plasma urea nitroge n measurement (mass/volume)Ordered By: Dr. Maddox on 10-28-2022 Urea nitrogen [Mass/Vol] 35 mg/dL 7-18 [facility] Squamous epithelial cells de tection in urine sediment by light microscopyOrdered By: Dr. Maddox on 10-28-2022 Epithelial cells.squamous LM Ql (Urine sed) 0-5 SEEN /hpf 0-5 [facility] Thin prep Papanicolaou smear with manual screeningOrdered By: Dr. Maddox on 10-28-2022 Thin prep Papanicolaou smear with manual screening 8 5-15 [facility] Urine blood detectionOrdered By: Dr. Maddox on 10-28-2022 RBC Ql (U) 50 /ul Negative [facility] RBC Ql (U) 0-5 SEEN /hpf 0-5 [facility] Urine clarityOrdered By: Dr. Maddox on 10-28-2022 Clarity (U) Clear Clear [facility] Urine color determinationOrd ered By: Dr. Maddox on 10-28-2022 Color (U) Yellow Yellow [facility] Urine glucose detectionOrder ed By: Dr. Maddox on 10-28-2022 Glucose Ql (U) 1000 mg/dl Normal [facility] Urine leukocyte esterase det ection by dipstickOrdered By: Dr. Maddox on 10-28-2022 Leukocyte esterase Test strip Ql (U) Negative Negative [facility] Urine pHOrdered By: Dr. Souyma boswell on 10-28-2022 pH (U) 5.0 [pH] 5.0 - 8.0 [facility] Urine sediment bacteria coun t by microscopy (number/high power field)Ordered By: Dr. Maddox on 10-28-2022 Bacteria LM.HPF (Urine sed) [#/Area] 1 /[HPF] None Seen [facility] Urine specific gravity measu rementOrdered By: Dr. Maddox on 10-28-2022 Specific gravity (U) [Rel density] 1.015 1.002-1.030 [facility] Urobilinogen Auto test strip Ql (U)Ordered By: Dr. Maddox on 10-28-2022 Urobilinogen Ql (U) Normal mg/dl Normal [facility] Basophil percentageon 2021 Chloride [Moles/Vol] 110 mmol/L 98-107 [facility] Work Phone: Cholesterol [Mass/Vol] 133 mg/dL <200 [facility] Work Phone: Comment on above: <200 mg/dL Desirable 200-240 mg/dL Borderline >240 mg/dL High Risk Glucose [Mass/Vol] 68 mg/dL 74-106 [facility] Work Phone: Potassium [Moles/Vol] 4.6 mmol/L 3.5-5.1 [facility] Work Phone: Sodium [Moles/Vol] 140 mmol/L 136-145 [facility] Work Phone: Triglyceride [Mass/Vol] 169 mg/dL <199 [facility] Work Phone: Comment on above: The drugs N-Acetylcy steine and Metamizole may falsely depress this assay.Serum Triglycerides Reference Interval Normal <150 mg/dL Borderline high 150 - 199 mg/dL High 200 - 499 mg/dL Very High > or = 500 mg/dL WBC (Bld) [#/Vol] 12.3 10*3/uL 4.4-11.0 [facility] Work Phone: [phone] Blood erythrocytes count (nu mber/volume)on 09-21-2022 RBC (Bld) [#/Vol] 4.59 10*6/uL 4.6-6.2 [facility] Work Phone: [phone] Blood hemoglobin measurement (mass/volume)on 09-21-2022 Hemoglobin (Bld) [Mass/Vol] 14.1 g/dL 13.0-16.5 [facility] Work Phone: [phone] Blood platelet mean volumeon 09-21-2022 Platelet mean volume (Bld) [Entitic vol] 10.6 fL 6.2-12.0 [facility] Work Phone: [phone] Determination of erythrocyte mean corpuscular volume (MCV)on 09-21-2022 MCV (RBC) [Entitic vol] 94.8 fL 80-94 [facility] Work Phone: [phone] Hematocrit Auto (Bld) [Volum e fraction]on 09-21-2022 Hematocrit (Bld) [Volume fraction] 43.5 % 40-54 [facility] Work Phone: [phone] Laboratory - Chemistry and C hemistry - challengeon 09-21-2022 CO2 [Moles/Vol] 23.0 mmol/L 21.0-32.0 [facility] Work Phone: [phone] Urea nitrogen/Creatinine [Mass ratio] 16.0 mg/mg 10-20 [facility] Work Phone: [phone] Laboratory - Hematology and Cell countson 09-21-2022 Erythrocyte distribution width (RBC) [Entitic vol] 47.5 fL 35.1-43.9 [facility] Work Phone: [phone] Erythrocyte distribution width (RBC) [Ratio] 13.7 % 11.6-14.6 [facility] Work Phone: [phone] MCH (RBC) [Entitic mass] 30.7 pg 27.0-32.0 [facility] Work Phone: [phone] MCHC Auto (RBC) [Mass/Vol]on 09-21-2022 MCHC (RBC) [Mass/Vol] 32.4 g/dL 32-36 [facility] Work Phone: No Panel Informationon 09-21 Estimated GFR (MDRD) Amer 53 mL/min >60 [facility] Work Phone: Comment on above: GFR Calc Estimated GFR (MDRD) Non-Af Amer 44 mL/min >60 [facility] Work Phone: Comment on above: Non- GFR Calc Vitamin D 25-Hydroxy 19.7 ng/mL [facility] Work Phone: Comment on above: Vitamin D 25(OH) Sta tus Range Deficiency <20 ng/mL (50nmol/L) Insufficiency 20 - 30 ng/mL (50 - 75 nmol/L) Sufficiency 30 - 100 ng/mL (75 - 250 nmol/L) Toxicity >100 ng/mL (>250 nmol/L) Platelets bldon 09-21-2022 Platelets (Bld) [#/Vol] 270 10*3/uL 150-450 [facility] Work Phone: Serum or plasma calcium zenaida urement (mass/volume)on 09-21-2022 Calcium [Mass/Vol] 9.4 mg/dL 8.5-10.1 [facility] Work Phone: Serum or plasma cholesterol in HDL measurement (mass/volume)on 09-21-2022 Cholesterol in HDL [Mass/Vol] 32 mg/dL >40 [facility] Work Phone: Comment on above: The drugs N-Acetylcy steine and Metamizole may falsely depress this assay. Reference Range HDL <40 mg/dL Low HDL Cholesterol HDL >or= 60 mg/dL High HDL Cholesterol Serum or plasma cholesterol in VLDL measurement (mass/volume)on 09-21-2022 Cholesterol in VLDL [Mass/Vol] 34 mg/dL 5-40 [facility] Work Phone: [phone] Serum or plasma creatinine m easurement (mass/volume)on 09-21-2022 Creatinine [Mass/Vol] 1.63 mg/dL 0.70-1.30 [facility] Work Phone: Comment on above: The validity of the calculated GFR & GFRAA in patients over 70 years has not been determined. Clinical correlation is essential. Serum or plasma low density lipoprotein (LDL) cholesterol measurement (mass/volume)on 09-21-2022 Cholesterol in LDL [Mass/Vol] 67 mg/dL 0-130 [facility] Work Phone: Serum or plasma urea nitroge n measurement (mass/volume)on 09-21-2022 Urea nitrogen [Mass/Vol] 26 mg/dL 7-18 [facility] Work Phone: Thin prep Papanicolaou smear with manual screeningon 09-21-2022 Thin prep Papanicolaou smear with manual screening 7 5-15 [facility] Work Phone: Basophil percentageon 2021 Chloride [Moles/Vol] 106 mmol/L 98-107 [facility] Work Phone: Cholesterol [Mass/Vol] 135 mg/dL <200 [facility] Work Phone: Comment on above: <200 mg/dL Desirable 200-240 mg/dL Borderline >240 mg/dL High Risk Glucose [Mass/Vol] 170 mg/dL 74-106 [facility] Work Phone: Comment on above: Fasting Glucose resu lt greater than or equal to 126 mg/dL suggests DIABETES MELLITUS per A.D.A. criteria. Potassium [Moles/Vol] 4.5 mmol/L 3.5-5.1 [facility] Work Phone: [phone] Comment on above: Slight Hemolysis, Re sult may be falsely increased. Sodium [Moles/Vol] 138 mmol/L 136-145 [facility] Work Phone: [phone] Testosterone [Mass/Vol] 164.47 ng/dL [facility] Work Phone: [phone] Comment on above: CENTRAL 90% REFERENC E RANGES MALE AGE <50 197.44 - 669.58 ng/dL MALE AGE > or = 50 187.72 - 684.19 ng/dL FEMALE AGE <50 8.38 - 35.01 ng/dL FEMALE AGE > or = 50 <7.00 - 35.92 ng/dL Effective as of 05/13/21 Triglyceride [Mass/Vol] 184 mg/dL <199 [facility] Work Phone: Comment on above: The drugs N-Acetylcy steine and Metamizole may falsely depress this assay.Serum Triglycerides Reference Interval Normal <150 mg/dL Borderline high 150 - 199 mg/dL High 200 - 499 mg/dL Very High > or = 500 mg/dL Laboratory - Chemistry and C hemistry - challengeon 03-18-2022 CO2 [Moles/Vol] 23.0 mmol/L 21.0-32.0 [facility] Work Phone: Free T4 [Mass/Vol] 1.00 ng/dL 0.76-1.46 [facility] Work Phone: Urea nitrogen/Creatinine [Mass ratio] 14.5 mg/mg 10-20 [facility] Work Phone: No Panel Informationon 03-18 Estimated GFR (MDRD) Amer 58 mL/min >60 [facility] Work Phone: Comment on above: GFR Calc Estimated GFR (MDRD) Non-Af Amer 48 mL/min >60 [facility] Work Phone: Comment on above: Non- GFR Calc Prostate Specific Antigen Screen 1.72 ng/mL 0.00-4.00 [facility] Work Phone: Comment on above: This test was perfor med using the TPSA assay method for the[facility] chemistry system. Values obtained with differentassay methods cannot be used interchangably.When changing PSA assays in the course of monitoring apatient, additional sequential testing should be carriedout to confirm baseline values. Thyroid Stimulating Hormone (TSH) 3.91 uIU/mL 0.358-3.74 [facility] Work Phone: [phone] Total Triiodothyronine 0.87 ng/mL 0.6-1.81 [facility] Work Phone: [phone] Serum or plasma calcium zenaida urement (mass/volume)on 03-18-2022 Calcium [Mass/Vol] 9.2 mg/dL 8.5-10.1 [facility] Work Phone: Serum or plasma cholesterol in HDL measurement (mass/volume)on 03-18-2022 Cholesterol in HDL [Mass/Vol] 35 mg/dL >40 [facility] Work Phone: Comment on above: The drugs N-Acetylcy steine and Metamizole may falsely depress this assay. Reference Range HDL <40 mg/dL Low HDL Cholesterol HDL >or= 60 mg/dL High HDL Cholesterol Serum or plasma cholesterol in VLDL measurement (mass/volume)on 03-18-2022 Cholesterol in VLDL [Mass/Vol] 37 mg/dL 5-40 [facility] Work Phone: Serum or plasma creatinine m easurement (mass/volume)on 03-18-2022 Creatinine [Mass/Vol] 1.52 mg/dL 0.70-1.30 [facility] Work Phone: Comment on above: The validity of the calculated GFR & GFRAA in patients over 70 years has not been determined. Clinical correlation is essential. Serum or plasma low density lipoprotein (LDL) cholesterol measurement (mass/volume)on 03-18-2022 Cholesterol in LDL [Mass/Vol] 63 mg/dL 0-130 [facility] Work Phone: Serum or plasma urea nitroge n measurement (mass/volume)on 03-18-2022 Urea nitrogen [Mass/Vol] 22 mg/dL 7-18 [facility] Work Phone: Thin prep Papanicolaou smear with manual screeningon 03-18-2022 Thin prep Papanicolaou smear with manual screening 9 5-15 [facility] Work Phone: Whole blood hemoglobin A1c/t otal hemoglobin ratio (mass fraction)on 03-18-2022 HbA1c (Bld) [Mass fraction] 8.1 % 3.8-5.6 [facility] Work Phone: Comment on above: Normal < 5.7 % Predi abetic 5.7 - 6.4 % Diabetic >or= 6.5 % Please note range changes. Vital Signs Date Time Vital Sign Value Performing Clinician Ellen ordonez 01-18-2025 09:45-0400 Body height 180.[address] Ok Jones MD Work Phone: [facility] 01-18-2025 09:45-0400 Body mass index (BMI) [Ratio] 33.2 kg/m2 Dr. Ok Jones MD Work Phone: [facility] 01-18-2025 09:45-0400 Body weight 107.[address] Ok Jones MD Work Phone: [facility] 01-18-2025 09:45-0400 Diastolic blood pressure 81 mm[Hg] Dr. Ok Jones MD Work Phone: [facility] 01-18-2025 09:45-0400 Heart rate 76 /min Dr. Ok Jones MD Work Phone: [facility] 01-18-2025 09:45-0400 Respiratory rate 18 /min Dr. Ok Jones MD Work Phone: [facility] 01-18-2025 09:45-0400 Systolic blood pressure 142 mm[Hg] Dr. Ok Jones MD Work Phone: [facility] 09-28-2023 08:30-0500 Body height 180.[address] Allen castañeda Work Phone: [facility] 09-28-2023 08:26-0500 Body mass index (BMI) [Ratio] 34.4 kg/m2 Dr. Allen Jones Work Phone: [facility] 09-28-2023 08:26-0500 Body weight 112.[address] Allen castañeda Work Phone: [facility] 09-28-2023 08:26-0500 Diastolic blood pressure 75 mm[Hg] Dr. Allen Jones Work Phone: [facility] 09-28-2023 08:26-0500 Heart rate 67 /min Dr. Allen castañeda Work Phone: [facility] 09-28-2023 08:26-0500 Respiratory rate 22 /min Dr. Allen castañeda Work Phone: [facility] 09-28-2023 08:26-0500 SaO2% (BldA) [Mass fraction] 93 % Dr. Allen Jones Work Phone: [facility] 09-28-2023 08:26-0500 Systolic blood pressure 147 mm[Hg] Dr. Allen Jones Work Phone: [facility] 03-30-2023 09:05-0400 Body height 180.[address] Allen castañeda Work Phone: [facility] 03-30-2023 09:05-0400 Body mass index (BMI) [Ratio] 34.2 kg/m2 Dr. Allen Jones Work Phone: [facility] 03-30-2023 09:05-0400 Body weight 111.[address] Allen castañeda Work Phone: [facility] 03-30-2023 09:05-0400 Diastolic blood pressure 76 mm[Hg] Dr. Allen Jones Work Phone: [facility] 03-30-2023 09:05-0400 Heart rate 53 /min Dr. Allen castañeda Work Phone: [facility] 03-30-2023 09:05-0400 Respiratory rate 20 /min Dr. Allen castañeda Work Phone: [facility] 03-30-2023 09:05-0400 SaO2% (BldA) [Mass fraction] 96 % Dr. Allen Jones Work Phone: [facility] 03-30-2023 09:05-0400 Systolic blood pressure 134 mm[Hg] Dr. Allen Jones Work Phone: [facility] 11-05-2022 09:44-0500 Body height 180.[address] Allen castañeda Work Phone: [facility] 11-05-2022 09:44-0500 Body weight 113.[address] Allen castañeda Work Phone: [facility] 11-04-2022 09:55-0500 Body mass index (BMI) [Ratio] 34.8 kg/m2 Dr. Allen Jones Work Phone: [facility] 09-30-2022 08:53-0500 Diastolic blood pressure 72 mm[Hg] Dr. Allen Jones Work Phone: [facility] Work Phone: 09-30-2022 08:53-0500 Systolic blood pressure 142 mm[Hg] Dr. Allen Jones Work Phone: [facility] Work Phone: 09-30-2022 08:46-0500 Body height 180.[address] Allen castañeda Work Phone: [facility] Work Phone: 09-30-2022 08:46-0500 Body mass index (BMI) [Ratio] 34.9 kg/m2 Dr. Allen Jones Work Phone: [facility] Work Phone: 09-30-2022 08:46-0500 Body weight 113.[address] Allen castañeda Work Phone: [facility] Work Phone: 09-30-2022 08:46-0500 Heart rate 71 /min Dr. Allen castañeda Work Phone: [facility] Work Phone: 09-30-2022 08:46-0500 Respiratory rate 18 /min Dr. Allen castañeda Work Phone: [facility] Work Phone: 09-30-2022 08:46-0500 SaO2% (BldA) [Mass fraction] 95 % Dr. Allen Jones Work Phone: [facility] Work Phone: 04-15-2022 09:55-0400 Body height 180.[address] Allen castañeda Work Phone: [facility] Work Phone: 04-15-2022 09:55-0400 Body mass index (BMI) [Ratio] 34.8 kg/m2 Dr. Allen Jones Work Phone: [facility] Work Phone: 04-15-2022 09:55-0400 Body weight 113.[address] Allen castañeda Work Phone: [facility] Work Phone: 04-15-2022 09:55-0400 Diastolic blood pressure 60 mm[Hg] Dr. Allen Jones Work Phone: [facility] Work Phone: 04-15-2022 09:55-0400 Heart rate 68 /min Dr. Allen castañeda Work Phone: [facility] Work Phone: 04-15-2022 09:55-0400 Respiratory rate 16 /min Dr. Allen castañeda Work Phone: [facility] Work Phone: 04-15-2022 09:55-0400 Systolic blood pressure 144 mm[Hg] Dr. Allen Jones Work Phone: [facility] Work Phone: Encounters Encounter Date Encounter Type Care Provider Facility Start: 03-14-2025 End: 03-14-[address] Ok Jones MD Work Phone: [facility] Work Phone: Start: 03-14-2025 End: 03-14-[address] Ok Jones MD -Radiology [place] Work Phone: Start: 03-14-2025 End: 03-14-2025 ambulatory kO Jones Facility:[facility] Start: 01-18-2025 End: 01-18-[address] Adrien Kat MD -[facility] Work Phone: Start: 01-18-2025 End: 01-18-[address] Ok Jones MD Work Phone: [facility] Work Phone: Start: 01-12-2025 End: 01-12-2025 ambulatory Adrien Kat Facility:[facility] Start: 01-12-2025 End: 01-12-[address] Adrien Kat MD -[facility] Work Phone: Start: 11-10-2024 End: 11-10-2024 ambulatory Ok Jones Facility:[facility] Start: 10-13-2024 End: 10-13-2024 ambulatory Adrien Kat Facility:[facility] Start: 07-14-2024 End: 07-14-2024 ambulatory Ok Jones Facility:[facility] Start: 07-13-2024 End: 07-13-20[facility] Start: 05-18-2024 End: 05-18-2024 ambulatory Ok Jones Facility:[facility] Start: 04-14-2024 End: 04-14-2024 ambulatory Ok Jones Facility:[facility] Start: 01-17-2024 End: 01-17-[address] Ok Jones Work Phone: [facility] Work Phone: Start: 01-17-2024 End: 01-17-[address] Ok Jones Work Phone: [facility]-Radiology, [place] Work Phone: Start: 12-23-2023 End: 12-23-[address] Ok Jones Work Phone: [facility] Work Phone: Start: 11-22-2023 End: 11-22-[address] Ok Jones Work Phone: [facility] Work Phone: Start: 11-04-2023 End: 11-04-[address] Allen Jones Work Phone: [facility] Work Phone: Start: 11-04-2023 End: 11-04-[address] Allen Jones Work Phone: [facility] Start: 10-15-2023 End: 10-15-[address] Ok Jones Work Phone: [facility] Work Phone: Start: 09-28-2023 End: 09-28-[address] Allen Jones Work Phone: [facility] Work Phone: Start: 09-20-2023 End: 09-20-[address] Allen Jones Work Phone: [facility] Work Phone: Start: 08-05-2023 End: 08-05-[address] Allen Jones Work Phone: [facility] Work Phone: Start: 08-05-2023 End: 08-05-[address] Allen Jones Work Phone: [facility] Work Phone: Start: 07-16-2023 End: 07-16-[address] Allen Jones Work Phone: [facility] Work Phone: Start: 07-01-2023 End: 07-01-[address] Allen Jones Work Phone: [facility] Work Phone: Start: 07-01-2023 End: 07-01-[address] Allen Jones Work Phone: [facility] Work Phone: Start: 06-07-2023 End: 06-07-[address] Allen Jones Work Phone: [facility] Work Phone: Start: 04-01-2023 End: 04-01-[address] Allen Jones Work Phone: [facility] Start: 03-30-2023 End: 03-30-[address] Allen Jones Work Phone: [facility] Work Phone: Start: 02-05-2023 End: 02-05-[address] Allen Jones Work Phone: [facility] Work Phone: Start: 02-05-2023 End: 02-05-[address] Allen Jones Work Phone: [facility] Start: 12-25-2022 End: 12-25-[address] Allen Jones Work Phone: [facility] Start: 11-17-2022 End: 11-17-[address] Allen Jones Work Phone: [facility] Start: 11-05-2022 End: 11-05-2022 Admission to same day surgery center Dr. Allen Jones Work Phone: [facility]-Manager Care Management/Special Procedures Start: 11-03-2022 Non-patient / Non-visit Dr. Allen Jones Work Phone: [facility] Start: 09-30-2022 End: 09-30-[address] Allen Jones Work Phone: [facility] Start: 09-21-2022 End: 09-21-[address] Allen Jones Work Phone: [facility] Work Phone: Start: 09-21-2022 End: 09-21-[address] Allen Jones Work Phone: [facility] Start: 07-16-2022 End: 07-16-[address] Allen Jones Work Phone: [facility] Start: 06-10-2022 End: 06-10-[address] Allen Jones Work Phone: [facility] Start: 05-08-2022 Non-patient / Non-visit Dr. Allen Jones Work Phone: [facility] Start: 05-08-2022 End: 05-08-[address] Allen Jones Work Phone: [facility] Start: 04-15-2022 End: 04-15-[address] Allen Jones Work Phone: [facility] Start: 03-18-2022 End: 03-18-[address] Allen Jones Work Phone: [facility] Start: 01-15-2022 End: 01-15-[address] Allen Jones Work Phone: [facility] Procedures Date Procedure Procedure Detail Performing Clinician Start: 03-14-2025 Complete x-ray serie s of lumbar spine with bending views Dr. Ok Jones MD Work Phone: Start: 01-17-2024 X-ray of lumbosacral spine Dr. Ok Jones Work Phone: Start: 01-17-2024 Plain x-ray of pelvi s and lower extremity Dr. Ok Jones Work Phone: Start: 02-05-2023 Plain chest X-ray Dr. Anamaria Jones Work Phone: Plan of Treatment Date Care Activity Detail Author Lipid 1996 panel - Serum or Plasma [facility] Immunizations Immunization Date Immunization Notes Care Provider Fa cility 01-13-2021 Covid (Moderna) Dr. Zaida Jones Work Phone: [facility] 12-16-2020 Covid (Moderna) Dr. Zaida Jones Work Phone: [facility] 08-18-[address] Allen Jones Work Phone: [facility] Payers Date Payer Category Payer Self-pay [id number] 2022 Private Health Insurance 101 [id number] 2014 Unknown [id number] Medicare [id number] Unknown [id number] 2.16.8 [id number] Unknown [id number] 2.16.8 [id number] Unknown [id number] 2.16.8 [id number] Unknown [id number] 2.16.8 [id number] Unknown [id number] 2.16.8 [id number] Unknown [id number] 2.16.8 [id number] Unknown [id number] 2.16.8 [id number] Unknown [id number] 2.16.8 [id number] Unknown [id number] 2.16.8 [id number] Unknown [id number] 2.16.8 [id number] Unknown [id number] 2.16.8 [id number] Unknown [id number] 2.16.8 [id number] Unknown [id number] 2.16.8 [id number] Unknown [id number] 2.16.8 [id number] Unknown [id number] 2.16.8 [id number] Social History Date Type Detail Facility Start: 05-23-2021 End: 09-28-2023 Tobacco smoking status SCIS Unknown if ever smoked [facility] Start: 11-05-2017 None [facility] Start: 11-05-2017 Non-smoker [facility] Start: 1945 Sex Assigned At Male [facility] Start: 09-28-2023 [facility] Medical Equipment Procedure Code Equipment Code Equipment Original Text Equipment Identifier Dates STENT,URETERAL 6 FR PIG [id number] FDA Start: 11-06-2017 STENT,URETERAL 6 FR PIG 6X26 FDA Start: 11-06-2017 STENT,URETERAL 6 FR PIG 6X26 FDA Start: 11-06-2017 STENT,URETERAL 6 FR PIG 6X26 FDA Start: 11-06-2017 Cardiac resynchr onization therapy implantable defibrillator [id number] FDA Start: 11-05-2022 STENT,URETERAL 6 FR PIG 6X26 FDA Start: 11-06-2017 STENT,URETERAL 6 FR PIG 6X26 FDA Start: 11-06-2017 STENT,URETERAL 6 FR PIG 6X26 FDA Start: 11-06-2017 STENT,URETERAL 6 FR PIG 6X26 FDA Start: 11-06-2017 STENT,URETERAL 6 FR PIG 6X26 FDA Start: 11-06-2017 STENT,URETERAL 6 FR PIG 6X26 FDA Start: 11-06-2017 Clinical Notes 01-18-2025 to 03-15-2025 Note Date & Type Note Facility 03-15-2025 Radiology Diagnostic study note [facility] Imaging Services [address] [place] [address] L/S Spine w Bend Min 6 Vw MR#: [id number] Acct: [id number] Name: CAMILO HALE Rep #: [id number] : 1945 M [id number] From: Jonathan Costa MD PCP: Dr. Ok Jones MD Status: REG CLI Study:L/S Spine w Bend Min 6 Vw Date of Exam: 03/14/25 Exam# [id number] Ordering Dr: Anamaria Jones MD PROCEDURE: L/S SPINE W BEND MIN 6 VW 03/14/2025 REASON FOR EXAM: BILATERAL LEG PAIN TECHNIQUE: 6 views; AP, bilateral oblique, lateral and flexion-extension COMPARISON: 01/17/2024 FINDINGS: 5 [id number] lumbar vertebral body types again identified. A leftward curvature, scoliosis with left pelvic tilt again seen. Partially calcified possible gallstone again noted. AICD seen. Obliquesare limited due to positioning and osteopenia. No fracture or malalignment. L1-2 further disc space narrowing now severe with also increased degenerative endplate changes. L2-3 similar appearance of [id number] disc space narrowing and degenerative endplate changes L3-4 appears to have interval further decrease in disc space now severe with again note of degenerative endplate changes Bilateral facet degenerative changes again noted. Aortic atherosclerotic calcification. No evidence of instability identified. RAD/L/S Spine w Bend Min 6 Vw IMPRESSION: Multilevel spondylosis/discogenic change at some levels appear increased from the prior as above. Reading Location: [id number] CC: Dr. Ok Jones MD ~ Enterprise Manager: Signed [facility] 01-18-2025 Evaluation note Diagnosis Onset Date Resolution PAF (paroxysmal atrial fibrillation) acute January 18, 2025 8:56am Biventricular implantable cardioverter-defibrillator (ICD) in situ 2006 chronic January 18, 2025 8:56am Dilated cardiomyopathy chronic Ap ril 2024 8:56am PAF (paroxysmal atrial fibrillation) acute January 18, 2025 8:57am Biventricular implantable cardioverter-defibrillator (ICD) in situ 2006 chronic January 18, 2025 8:57am Chronic diastolic heart failure chronic January 18, 2025 8:57am Dilated cardiomyopathy chronic Ap ril 2024 8:57am Essential hypertension chronic Ap ril 2024 8:57am Nonrheumatic mitral valve regurgitation chronic January 18, 2025 8:57am Pure hypercholesterolemia chronic January 18, 2025 8:57am [facility] Work Phone: Evaluation note* Diagnosis Onset Date Resolution Status Biventricular implantable ca rdioverter-defibrillator (ICD) in situ 2006 chronic Dilated cardiomyopathy chron [facility] Work Phone: Evaluation note* Diagnosis Onset Date Resolution Status Biventricular implantable ca rdioverter-defibrillator (ICD) in situ 2006 chronic Dilated cardiomyopathy chron ic Biventricular implantable ca rdioverter-defibrillator (ICD) in situ 2006 chronic Chronic diastolic heart failure chronic Dilated cardiomyopathy chron ic Biventricular implantable ca rdioverter-defibrillator (ICD) in situ 2006 chronic Chronic diastolic heart failure chronic Dilated cardiomyopathy chron ic Essential hypertension chron ic Nonrheumatic mitral valve regurgitation chronic Nonrheumatic tricuspid valve regurgitation chronic Pure hypercholesterolemia [facility] Work Phone: Evaluation note* Diagnosis Onset Date Resolution Status Biventricular implantable ca rdioverter-defibrillator (ICD) in situ 2006 chronic Chronic diastolic heart failure chronic Biventricular implantable ca rdioverter-defibrillator (ICD) in situ 2006 chronic Chronic diastolic heart failure chronic Dilated cardiomyopathy chron ic Biventricular implantable ca rdioverter-defibrillator (ICD) in situ 2006 chronic Chronic diastolic heart failure chronic Dilated cardiomyopathy chron ic Essential hypertension chron ic Nonrheumatic mitral valve regurgitation chronic Nonrheumatic tricuspid valve regurgitation chronic Pure hypercholesterolemia [facility] Biventricular implantable ca rdioverter-defibrillator (ICD) in situ 2006 chronic Dilated cardiomyopathy chron ic [facility] Work Phone: Evaluation note* Diagnosis Onset Date Resolution Status Biventricular implantable ca rdioverter-defibrillator (ICD) in situ 2006 chronic Dilated cardiomyopathy chron ic Biventricular implantable ca rdioverter-defibrillator (ICD) in situ 2006 chronic Dilated cardiomyopathy chron ic [facility] Work Phone: Evaluation note* Diagnosis Onset Date Resolution Status Biventricular implantable ca rdioverter-defibrillator (ICD) in situ 2006 chronic Chronic diastolic heart failure chronic Dilated cardiomyopathy chron ic Essential hypertension chron ic Nonrheumatic mitral valve regurgitation chronic Nonrheumatic tricuspid valve regurgitation chronic Pure hypercholesterolemia [facility] Biventricular implantable ca rdioverter-defibrillator (ICD) in situ 2006 chronic Chronic diastolic heart failure chronic Dilated cardiomyopathy chron ic Nonrheumatic mitral valve regurgitation [facility] Work Phone: Evaluation note* Diagnosis Onset Date Resolution Status Biventricular implantable ca rdioverter-defibrillator (ICD) in situ 2006 chronic Chronic diastolic heart failure chronic Dilated cardiomyopathy chron ic Nonrheumatic mitral valve regurgitation [facility] Work Phone: Evaluation note* Diagnosis Onset Date Resolution Status Biventricular implantable ca rdioverter-defibrillator (ICD) in situ 2006 chronic Dilated cardiomyopathy chron ic Biventricular implantable ca rdioverter-defibrillator (ICD) in situ 2006 chronic Chronic diastolic heart failure chronic Dilated cardiomyopathy chron ic Essential hypertension chron ic Nonrheumatic mitral valve regurgitation chronic Pure hypercholesterolemia [facility] Work Phone: Evaluation note* Diagnosis Onset Date Resolution Status Biventricular implantable ca rdioverter-defibrillator (ICD) in situ 2006 chronic Chronic diastolic heart failure chronic Dilated cardiomyopathy chron ic Essential hypertension chron ic Nonrheumatic mitral valve regurgitation chronic Pure hypercholesterolemia ch ronic Biventricular implantable ca rdioverter-defibrillator (ICD) in situ 2006 chronic Chronic diastolic heart failure chronic Dilated cardiomyopathy chron ic [facility] Work Phone: Reason for referral (narrative)No reason for referral information availableWAdena [facility]ike [facility] Work Phone: Chief Complaint and Reason for Visit Chief Complaint PER S.R. (MIYA HARTMAN) Reason for Visit Biventricular implan table cardioverter-defibrillator (ICD) in situ Dilated cardiomyopathy Chief Complaint PER S.R. 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 Sees PFM@10AM 10 MO F/U ICD f/u @ 9:30am MERLY Reason for Visit Biventricular implan table cardioverter-defibrillator (ICD) in situ Dilated cardiomyopathy Biventricular implantable cardioverter-defibrillator (ICD) in situ Chronic diastolic heart failure Dilated cardiomyopathy Biventricular implantable cardioverter-defibrillator (ICD) in situ Chronic diastolic heart failure Dilated cardiomyopathy Essential hypertension Nonrheumatic mitral valve regurgitation Nonrheumatic tricuspid valve regurgitation Pure hypercholesterolemia Chief Complaint REMOTE CHECK approaching ALYCE changed from 07/23 per patient Sees KR @ 8:30am approaching ALYCE Reason for Visit Biventricular implan table cardioverter-defibrillator (ICD) in situ Chronic diastolic heart failure Biventricular implantable cardioverter-defibrillator (ICD) in situ Chronic diastolic heart failure Dilated cardiomyopathy Biventricular implantable cardioverter-defibrillator (ICD) in situ Chronic diastolic heart failure Dilated cardiomyopathy Essential hypertension Nonrheumatic mitral valve regurgitation Nonrheumatic tricuspid valve regurgitation Pure hypercholesterolemia Biventricular implantable cardioverter-defibrillator (ICD) in situ Dilated cardiomyopathy Chief Complaint ICD CHANGE ICD CHANGE Post generator change wound check REMOTE CHECK LABS AND XRAY- SOB Reason for Visit Biventricular implan table cardioverter-defibrillator (ICD) in situ Dilated cardiomyopathy Biventricular implantable cardioverter-defibrillator (ICD) in situ Dilated cardiomyopathy Chief Complaint 6 M FU 3mos DRUM WORKER-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/u E ORDER Reason for Visit Biventricular implan table cardioverter-defibrillator (ICD) in situ Chronic diastolic heart failure Dilated cardiomyopathy Essential hypertension Nonrheumatic mitral valve regurgitation Nonrheumatic tricuspid valve regurgitation Pure hypercholesterolemia Biventricular implantable cardioverter-defibrillator (ICD) in situ Chronic diastolic heart failure Dilated cardiomyopathy Nonrheumatic mitral valve regurgitation Chief Complaint 3mos DRUM WORKER-D f/u E ORDER EORDER Reason for Visit Biventricular implan table cardioverter-defibrillator (ICD) in situ Chronic diastolic heart failure Dilated cardiomyopathy Nonrheumatic mitral valve regurgitation Chief Complaint Pacer Check Remote EORDER 3 mos DRUM WORKER-D f/u 6 M FU Reason for Visit Biventricular implan table cardioverter-defibrillator (ICD) in situ Dilated cardiomyopathy Biventricular implantable cardioverter-defibrillator (ICD) in situ Chronic diastolic heart failure Dilated cardiomyopathy Essential hypertension Nonrheumatic mitral valve regurgitation Pure hypercholesterolemia Chief Complaint 6 M FU Pacer Check Remote Pacer Check Remote 3 mos DRUM WORKER-D f/u Pacer Check Remote SHOBHA HIP XRAY - PAIN LUMBAR SPINE XRAY Reason for Visit Biventricular implan table cardioverter-defibrillator (ICD) in situ Chronic diastolic heart failure Dilated cardiomyopathy Essential hypertension Nonrheumatic mitral valve regurgitation Pure hypercholesterolemia Biventricular implantable cardioverter-defibrillator (ICD) in situ Chronic diastolic heart failure Dilated cardiomyopathy Chief Complaint Admit Date Pacer Check Remote January 12, 2025 4:0 5am DRUM WORKER-D f/u Sees KR @ 9:30 January 18, 2025 8:56am 8 M FU DRUM WORKER-D f/u @ 9am January 18, 2025 8 :57am Pacer Check Remote January 18, 2025 9:00 am bilateral leg pain March 14, 2025 12:33 pm Reason for Visit Admit Date PAF (paroxysmal atrial fibrillation) Jan 8:56am Biventricular implantable ca rdioverter-defibrillator (ICD) in situ January 18, 2025 8:56am Dilated cardiomyopathy January 18, 2025 8 :56am PAF (paroxysmal atrial fibrillation) Jan 8:57am Biventricular implantable ca rdioverter-defibrillator (ICD) in situ January 18, 2025 8:57am Chronic diastolic heart failure January 8:57am Dilated cardiomyopathy January 18, 2025 8 :57am Essential hypertension January 18, 2025 8 :57am Nonrheumatic mitral valve regurgitation January 18, 2025 8:57am Pure hypercholesterolemia January 18 8:57am Family History No Family History Records Found Relationship Condition Age at Onset Recorded Date/T jasmin father Myocardial infarction 69 Advance Directives No Advanced Directives Records Found Advance Directive Response Recorded Date/ Time Living Will Yes November 06 1:11pm Power of Structural Engineering Drafting Officer Yes November 06, 2017 1:11pm Advance Directive Response Recorded Date/ Time Living Will Yes November 06 12:11pm Power of Structural Engineering Drafting Officer Yes November 06, 2017 12:11pm Advance Directive Response Recorded Date/ Time Advance Directives on File No Denis ry 2022 10:44am Name of Medical Power of Structural Engineering Drafting Officer clinton hale November 05, 2022 10:44am Advance Directives Yes November 05, 2022 10:44am Living Will Yes November 05 10:44am Power of Structural Engineering Drafting Officer Yes November 05, 2022 10:44am Advance Directive Response Recorded Date/ Time Advance Directives Yes November 05, 2022 10:44am Living Will Yes November 05 10:44am Power of Structural Engineering Drafting Officer Yes November 05, 2022 10:44am Advance Directive Response Recorded Date/ Time Advance Directives Yes November 05, 2022 9:44am Living Will Yes November 05 9:44am Power of Structural Engineering Drafting Officer Yes November 05, 2022 9:44am Advance Directive Response Recorded Date/ Time Living Will Yes November 05 10:44am Do you have a Healthcare Power of Structural Engineering Drafting Officer? Yes November 05, 2022 10:44am Advance Directives Yes November 05, 2022 10:44am Summary Purpose Additional Source Comments Goals (unrecognized section and content) Goals may be documented in a n alternate sectionGoals may be documented in an alternate sectionGoals may be documented in an alternate sectionGoals may be documented in an alternate sectionGoals may be documented in an alternate sectionGoals may be documented in an alternate sectionGoals may be documented in an alternate sectionGoals may be documented in an alternate sectionGoals may be documented in an alternate sectionGoals may be documented in an alternate section Care Teams (unrecognized sec tion and content) Team Status: Active Member Role Status Dates Dr. Allen Jones MD Family Provider Active Dr. Allen Jones MD Primary Care Provider Activ e Team Status: Inactive Member Role Status Dates Dr. Allen Jones MD Primary Care Provider Activ e Yamel Alvarez Active Dr. Thony Maddox MD Attending Provider, Referring Provider Active Team Status: Active Member Role Status Dates Dr. Allen Jones MD Primary Care Provider Activ e Dr. Phil Tan MD Referring Provider, Other Provide r Active Clint Castellon BUS TRANSPORTATION MANAGER, BUS TRANSPORTATION MANAGER-C Attending Provider Active Team Status: Inactive Member Role Status Dates Dr. Allen Jones MD Primary Care Provider Activ e Dr. Phil Tan MD Attending Provider, Referring Pro vider Active Team Status: Inactive Member Role Status Dates Dr. Allen Jones MD Primary Care Provider Activ e Dr. Thony Hernandez MD Attending Provider, Referring Pr ovider Active Team Status: Inactive Member Role Status Dates Dr. Allen Jones MD Primary Care Provider, Refe rring Provider Active Leydi Bee BUS TRANSPORTATION MANAGER, BUS TRANSPORTATION MANAGER-C Attending Provider Active Team Status: Inactive Member Role Status Dates Dr. Allen Jones MD Primary Care Provider, Refe rring Provider Active Yamel Alvarez Attending Provider Active Team Status: Inactive Member Role Status Dates Dr. Allen Jones MD Primary Care Provider, Atte nding Provider Active Team Status: Inactive Member Role Status Dates Dr. Allen Jones MD Primary Care Provider Activ e Yamel Alvarez Active Dr. Adrien Kat MD Attending Provider, Referring Pro vider Active Team Status: Inactive Member Role Status Dates Dr. Allen Jones MD Primary Care Provider, Attending Provider, Referring Provider Active Team Status: Inactive Member Role Status Dates Dr. Allen Jones MD Primary Care Provider Activ e Dr. Adrien Kat MD Attending Provider, Referring Pro vider Active Team Status: Active Member Role Status Dates Dr. Ok Jones MD Family Provider Active Dr. Ok Jones MD Primary Care Provider Acti ve Team Status: Inactive Member Role Status Dates Dr. Ok Jones MD Primary Care Provider, Ref erring Provider Active Leydi Bee BUS TRANSPORTATION MANAGER, BUS TRANSPORTATION MANAGER-C Attending Provider Active Team Status: Inactive Member Role Status Dates Dr. Ok Jones MD Primary Care Provider, Ref erring Provider Active Yamel Alvarez Attending Provider Active Team Status: Inactive Member Role Status Dates Dr. Ok Jones MD Primary Care Provider Acti ve Dr. Adrien Kat MD Attending Provider, Referring Pro vider Active Team Status: Inactive Member Role Status Dates Dr. Ok Jones MD Primary Care Provider Acti ve Dr. Adrien Kat MD Attending Provider Active Team Status: Inactive Member Role Status Dates Dr. Ok Jones MD Primary Care Provider, Att ending Provider Active Team Status: Inactive Member Role Status Dates Dr. Ok Jones MD Primary Care Provider Acti ve Dr. Brennon Gallardo MD Attending Provider, Referring Provider Active Team Status: Active Member Role Status Dates Dr. Ok Jones MD Primary Care Provider Acti ve Team Status: Inactive Member Role Status Dates Dr. Ok Jones MD Primary Care Provider Acti ve Start: January 12, 2025 End: January 12, 2025 Dr. Adrien Kat MD Attending Provider Active S tart: January 12, 2025 End: January 12, 2025 Dr. Adrien Kat MD Referring Provider Active S tart: January 12, 2025 End: January 12, 2025 Team Status: Inactive Member Role Status Dates Dr. Ok Jones MD Primary Care Provider Acti ve Start: January 18, 2025 End: January 18, 2025 Dr. Adrien Kat MD Attending Provider Active S tart: January 18, 2025 End: January 18, 2025 Dr. Adrien Kat MD Referring Provider Active S tart: January 18, 2025 End: January 18, 2025 Team Status: Inactive Member Role Status Dates Dr. Ok Jones MD Primary Care Provider Acti ve Start: January 18, 2025 End: January 18, 2025 Dr. Ok Jones MD Referring Provider Active Start: January 18, 2025 End: January 18, 2025 Greer Gross PA, PA Attending Provider Active Start: January 18, 2025 End: January 18, 2025 Team Status: Inactive Member Role Status Dates Dr. Ok Jones MD Primary Care Provider Acti ve Start: January 18, 2025 End: January 18, 2025 Dr. Adrien Kat MD Attending Provider Active S tart: January 18, 2025 End: January 18, 2025 Team Status: Inactive Member Role Status Dates Dr. Ok Jones MD Primary Care Provider Acti ve Start: March 14, 2025 End: March 14, 2025 Dr. Ok Jones MD Attending Provider Active Start: March 14, 2025 End: March 14, 2025 Dr. Ok Jones MD Referring Provider Active Start: March 14, 2025 End: March 14, 2025 (unrecognized sect ion and content) No Status Records Found INFORMATION SOURCE (unrecogn ized section and content) DATE CREATED AUTHOR 04/06/2025 [facility] FOR RECORDS PERTAINING TO PATIENTS WHO ARE OR HAVE BEEN ENROLLED IN A CHEMICAL DEPENDENCY/SUBSTANCEABUSE PROGRAM, SOME INFORMATION MAY BE OMITTED. This clinical summary was aggregated from multiple sources. Caution should be exercised in using it in the provision of clinical care. This summary normalizes information from multiple sources, and as a consequence, information in this document may materially change the coding, format and clinical context of patient data. In addition, data may be omitted in some cases. CLINICAL DECISIONS SHOULD BE BASED ON THE PRIMARY CLINICAL RECORDS. [employer] provides no warranty or guarantee of the accuracy or completeness of information in this document.
[2025-04-11 14:38] LABS: T3 Total - Triiodothyronine 1.09 ng/mL (0.80-2.00)
== END | disposition home or self-care (01) ==
LOC: MFPLAB 08:48
PROVIDERS: PCP Family Medicine; Referring Provider Family Medicine; Visit Provider Family Medicine
DX: I42.9 Cardiomyopathy, unspecified (principal); E11.22 Type 2 diabetes mellitus with diabetic chronic kidney disease; N18.30 Chronic kidney disease, stage 3 unspecified
CPT/HCPCS: 36415; 80053; 82306; 83540; 83880; 84439; 84443; 84480; 85027

== ENCOUNTER → 2025-04-17 | Outpatient (CLI) | payer MEDICARE, SELFPAY ==
--- NOTE | 2025-04-17 16:41 | CT_ITS ---
PROCEDURE: SPINE LUMBAR WITHOUT CONTRAST 04/17/2025 REASON FOR EXAM: DEGENERTIVE DISC DISEASE LUMBAR. TECHNIQUE: SPINE LUMBAR WITHOUT CONTRAST Coronal and Sagittal reconstruction series were provided. One or more dose reduction techniques were used (e.g., Automated exposure control, adjustment of the mA and/or kV according to patient size, use of iterative reconstruction technique COMPARISON: March 14, 2025 x-ray RADIATION DOSE SUMMARY: DLP: 1494.44 mGycm FINDINGS: Vertebrae: There is levoscoliosis of the lumbar region with Gray angle = 24 degrees from L1-5, apex L3. Alignment: There is grade 1 retrolisthesis at L1-2, 0.3 cm. There is loss of disc height from L1-4. There is moderate right foraminal narrowing from L1-4 secondary to osteophyte. There is no bony spinal stenosis. There is no visible acute fracture. There is severe facet sclerosis in the lumbar region. There are no suspicious lytic or blastic lesions. Vascular calcifications are noted. There is a 3.5 cm left adrenal mass, Hounsfield units = 5, benign adrenal adenoma. There is a 2.2 cm right adrenal nodule, Hounsfield units = 4, benign adrenal adenoma. CT/Spine Lumbar without Contrast IMPRESSION: There is levoscoliosis of the lumbar region with Gray angle = 24 degrees from L 1-5, apex L3. There is grade 1 retrolisthesis at L1-2, 0.3 cm. There is loss of disc height from L1-4. There is moderate right foraminal narrowing from L1-4 secondary to osteophyte. There is a 3.5 cm left adrenal mass, Hounsfield units = 5, benign adrenal adeno ma. There is a 2.2 cm right adrenal nodule, Hounsfield units = 4, benign adrenal ad enoma. Reading Location: [facility]
== END | disposition home or self-care (01) ==
LOC: CT 16:33
PROVIDERS: PCP Family Medicine; Referring Provider Family Medicine; Visit Provider Family Medicine
DX: M51.369 Other intervertebral disc degeneration, lumbar region without mention of lumbar back pain or lower extremity pain (principal)
CPT/HCPCS: 72131

== ENCOUNTER → 2025-05-11 | Outpatient (CLI) | payer MEDICARE, SELFPAY ==
[2025-05-11 13:17] LABS: Free T3 3.0 pg/mL (2.18-3.98)
[2025-05-16 19:08] LABS: PROLACTIN 26.8 ng/mL (3.6-25.2)
== END | disposition home or self-care (01) ==
LOC: MFPLAB 10:57
PROVIDERS: PCP Family Medicine; Referring Provider Family Medicine; Visit Provider Family Medicine
DX: R79.89 Other specified abnormal findings of blood chemistry (principal)
CPT/HCPCS: 36415; 84146; 84305; 84439; 84481

== ENCOUNTER → 2025-08-02 | Outpatient (CLI) | payer MEDICARE, SELFPAY ==
[2025-08-02 17:04] LABS: Creatinine, Urine (random) 82.40 mg/dL (39.00-259.00); Microalbumin,Random Urine 167.0 mg/L (<20 mg/L)
== END | disposition home or self-care (01) ==
LOC: LABSPEC 13:59
PROVIDERS: PCP Family Medicine; Visit Provider Family Medicine
DX: Z00.00 Encounter for general adult medical examination without abnormal findings (principal); E11.9 Type 2 diabetes mellitus without complications
CPT/HCPCS: 82043; 82570